=== PATIENT | male | born 1950 | race Caucasian/White ===

== ENCOUNTER → 2022-03-01 12:15 | Outpatient (CLI) | payer BC, SELFPAY ==
--- NOTE | 2022-03-01 12:21 | XR_ITS ---
FINAL REPORT CLINICAL HISTORY: SOB FINDINGS: Two views of the chest were obtained. The heart size and pulmonary vascularity are within normal limits. The mediastinum is normal. There is bibasilar atelectasis or scarring. There is no pneumothorax. There are moderate degenerative changes of the spine. IMPRESSION: Bibasilar atelectasis or scarring. Reviewed, Interpreted and Dictated by Mehran Hahn III, MD Transcribed by Shima Ibarra Authenticated by Mehran Hahn III, MD on 03/01/2022 01:07:26 PM [facility]
== END ==
PROVIDERS: PCP Family Medicine; Visit Provider Internal Medicine Pulmonary Disease
DX: R06.02 Shortness of breath (principal)
CPT/HCPCS: 71046

== ENCOUNTER → 2022-03-29 14:55 | Outpatient (CLI) | payer BC, SELFPAY | PROVIDERS: PCP Family Medicine; Visit Provider Internal Medicine Pulmonary Disease | DX: R06.09 Other forms of dyspnea (principal) | CPT/HCPCS: 94060; 94618; 94726; 94729; 94762 ==

== ENCOUNTER → 2022-06-05 15:19 | Outpatient (CLI) | payer BC, SELFPAY ==
--- NOTE | 2022-06-05 15:25 | CT_ITS ---
FINAL REPORT TECHNIQUE: Thin section axial images of the chest were obtained by computed tomography with inspiration and expiration supine and prone inspiration. High-resolution technique was performed. CLINICAL HISTORY: . SOA, this is a high resolution Chest x3, inspiration supine, expiration supine, inspiration prone FINDINGS: There is no evidence of mediastinal mass or adenopathy. No axillary mass is identified. There is mild predominantly peripheral fibrosis/scarring. There is no evidence of honeycombing. Note is made of mild emphysema. There is no evidence of bronchiectasis. There is a nodule in the medial right middle lobe measuring 9 mm. There is no significant air trapping on expiration. Limited images of the upper abdomen reveal a gallstone. IMPRESSION: Mild predominantly peripheral fibrosis/scarring. Mild emphysema. Right middle lobe nodule as above. Recommend 3 month follow-up CT or PET-CT. Reviewed, Interpreted and Dictated by Mehran Hahn III, MD Transcribed by Carey Del Castillo Authenticated and [facility]
== END ==
PROVIDERS: PCP Family Medicine; Visit Provider Internal Medicine Pulmonary Disease
DX: J84.89 Other specified interstitial pulmonary diseases (principal); R06.02 Shortness of breath
CPT/HCPCS: 71250

== ENCOUNTER → 2022-09-06 14:49 | Outpatient (CLI) | payer BC, SELFPAY ==
--- NOTE | 2022-09-06 14:59 | CT_ITS ---
FINAL REPORT TECHNIQUE: Axial CT images were performed from the lung apices through the upper abdomen. Coronal reformats were submitted. This study was performed with techniques to keep radiation doses as low as reasonably achievable (ALARA). Individualized dose reduction techniques using automated exposure control or adjustment of mA and/or kV according to the patient's size were employed. CLINICAL HISTORY: Pulmonary nodule, 3 month follow-up COMPARISON: 06/05/2022 FINDINGS: There is no axillary adenopathy. There is no hilar or mediastinal mass or adenopathy. Heart size is normal. There is no pericardial or pleural effusion. Limited images of the upper abdomen demonstrate a gallstone in the gallbladder. There is mild edema and mild scarring. The medial right middle lobe nodule is stable at 9 mm. There is no new mass or nodule. IMPRESSION: Stable right middle lobe nodule. Six-month follow-up chest CT is recommended. Reviewed, Interpreted and Dictated by Mehran Hahn III, MD Transcribed by Milagro Encarnacion Authenticated and [facility]
== END ==
PROVIDERS: PCP Family Medicine; Visit Provider Internal Medicine Pulmonary Disease
DX: R91.8 Other nonspecific abnormal finding of lung field (principal)
CPT/HCPCS: 71250

== ENCOUNTER → 2023-06-17 07:10 | Outpatient (CLI) | payer MEDICARE, SELFPAY ==
--- NOTE | 2023-06-17 07:20 | CT_ITS ---
FINAL REPORT TECHNIQUE: Thin section axial images were obtained from the lung apices through the upper abdomen without contrast. This study was performed with techniques to keep radiation doses as low as reasonably achievable (ALARA). Individualized dose reduction techniques using automated exposure control or adjustment of mA and/or kV according to the patient's size were employed. CLINICAL HISTORY: 9-month follow-up COMPARISON: 09/06/2022 FINDINGS: There is no mediastinal, hilar, or axillary lymphadenopathy. No pleural or pericardial effusion. Changes of emphysema are present. There is a new 6mm nodular opacity in the left upper lobe seen best in image #12, and another new 7 mm nodular opacity also in the left upper lobe seen best on axial image #20. In addition, there is a new mixed density nodule in the right upper lobe measuring 6 mm in size, seen best on image #18. There is also a new 5 mm right upper lobe nodule seen best on axial image #28. The pulmonary nodule in the medial right middle lobe measuring 9 mm seen on the prior CT of August 2022 is unchanged in appearance. Gallstones are present in the gallbladder. There is no acute osseous abnormality. IMPRESSION: Stable right middle lobe nodule since the prior CT of August 2022. There are new bilateral upper lobe subcentimeter nodules, that may be infectious or inflammatory, neoplasm felt to be less likely. Recommend continued follow-up CT examinations for further evaluation. Reviewed, Interpreted and Dictated by Joaquina Garner MD Transcribed by Michelle Kerr Authenticated and [facility]
== END ==
PROVIDERS: PCP Family Medicine; Visit Provider Internal Medicine Pulmonary Disease
DX: R91.8 Other nonspecific abnormal finding of lung field (principal); R06.09 Other forms of dyspnea
CPT/HCPCS: 71250; 94060; 94618; 94726; 94729

== ENCOUNTER 2024-01-02 15:10 | Outpatient (CLI) | payer MEDICARE, SELFPAY ==
--- NOTE | 2024-01-02 15:16 | CT_ITS ---
FINAL REPORT CLINICAL HISTORY: 6-month follow-up COMPARISON: 06/17/2023 FINDINGS: CT CHEST without contrast COMPARISON: 06/17/2023. TECHNIQUE: Axial CT without IV contrast administration. FINDINGS: No acute lung disease is present . No pleural or pericardial effusion is seen . Multiple nodules were noted on the prior CT examination. The largest nodule is a 9 mm nodule in the medial right middle lobe, best seen on image #142, which is stable. There were multiple small bilateral right upper lobe nodules noted on the previous exam which show interval improvement since the prior exam. A left upper lobe nodule seen in image #65 measures 6 x 4 mm on today's examination, was 7 x 5 mm on the prior exam. Other lesions are either similar in size or improved. Cholelithiasis is once again identified in the gallbladder. IMPRESSION: Since the prior exam of May 2023 there has been interval improvement in multiple right upper lobe nodules. The 9 mm nodule in the medial right middle lobe is stable in appearance, and a left upper lobe nodule is slightly smaller than noted on the prior exam. Mild bronchiectasis and mild changes of emphysema. Cholecystolithiasis. This study was performed using automated techniques to achieve radiation exposure as low as reasonably achievable Reviewed, Interpreted and Dictated by Anabell Choe MD Transcribed by Michelle Kerr Authenticated and [facility]
== END 2024-01-02 23:59 ==
LOC: RAD 15:12
PROVIDERS: PCP Family Medicine; Visit Provider Internal Medicine Pulmonary Disease
DX: R91.8 Other nonspecific abnormal finding of lung field (principal)
CPT/HCPCS: 71250

== ENCOUNTER 2025-01-21 07:42 | Outpatient (CLI) | payer MEDICARE, SELFPAY ==
[2025-01-21] MEDS: ALBUTEROL 0.083% 2.5 MG/3 ML NEB IH (08:53)
--- NOTE | 2025-01-21 08:53 | PC.NURSE ---
PFT and 6 Minute Walk Test completed with no incident. Albuterol 0.083% given via HHN, per written protocol, Pt tolerated tx well.
== END 2025-01-21 23:59 | disposition home or self-care (01) ==
LOC: RT 07:42
PROVIDERS: PCP Family Medicine; Visit Provider Internal Medicine Pulmonary Disease
DX: R06.09 Other forms of dyspnea (principal)
CPT/HCPCS: 94060; 94618; 94726; 94729; J7613

== ENCOUNTER 2025-06-09 06:48 | Outpatient (CLI) | payer MEDICARE, SELFPAY ==
--- OUTSIDE RECORDS SUMMARY | 2025-04-11 13:56 | XMS_ITS | Encounter Summary ---
Author Organization [facility] Address [address] [place] [address] Care Team Providers Care Purchasing/Receiving Name Role Phone Ritchie Lopez MD Primary Care Provider [phone] Laura Maher MD Unavailable [phone] Isaac Webb MD Unavailable Reason for Visit * Episode Based Medications (Routine) - Authorized Specialty Diagnoses / Procedures Referred By Contac t Referred To Contact Diagnoses Pancreatic adenocarcinoma (CMS/HCC) Procedures Gemcitabine Weekly x 3 / Nab-Paclitaxel Weekly x 3 Every 28 Days Carly Gaxiola MD [address] [address] Phone: tel: fax: Carly Gaxiola MD [address] [address] Phone: tel: fax: Referral ID Status Reason Start Date Expiration Date V isits Requested Visits Authorized [id number] Authorized 03/28/2025 09/27/2026 1 29 Encounter Details Date Type Department Care Team (Latest Contact Info) Description 04/11/2025 1:56 PM EDT - 04/11/2025 11:59 PM EDT Hospital Encounter [facility] [address] [place] [address] Pancreatic adenocarcinoma (CMS/HCC) (Primary Dx) Discharge Disposition: Home or Self Care Social History Tobacco Use Types Packs/Day Years Used Date Smoking Tobacco: Former Cigarettes 2 30 Q uit: 05/31/2003 Passive Smoke Exposure: Past Smokeless Tobacco: Never Comments:Quit in 2002 Alcohol Use Standard Drinks/Week Comments Never 0 (1 standard drink = 0.6 oz pur e alcohol) Humiliation, Afraid, Rape, and Kick questionnair e Answer Date Recorded Within the last year, have y ou been afraid of your partner or ex-partner? No 04/02/2024 Within the last year, have y ou been humiliated or emotionally abused in other ways by your partner or ex-partner? No 04/02/2024 Within the last year, have y ou been kicked, hit, slapped, or otherwise physically hurt by your partner or ex-partner? No 04/02/2024 Sexually Abused Not on file 04/02/2024 PHQ-2 Answer Date Recorded Patient Health Questionnaire-2 Score 0 04/04/2025 Hunger Vital Sign Answer Date Recorded Within the past 12 months, y ou worried that your food would run out before you got the money to buy more. Never true 04/02/20 24 Within the past 12 months, t he food you bought just didn't last and you didn't have money to get more. Never true 04/02/2024 PRAPARE - Transportation Answer Date Re corded In the past 12 months, has l ack of transportation kept you from medical appointments or from getting medications? No 01/2024 In the past 12 months, has l ack of transportation kept you from meetings, work, or from getting things needed for daily living? No 04/02/2024 Housing Stability Vital Sign Answer Jesus e Recorded In the last 12 months, was t here a time when you were not able to pay the mortgage or rent on time? No 04/02/2024 [address] of [address] Lived in the Last Year Not on f ile 04/02/2024 In the last 12 months, was t here a time when you did not have a steady place to sleep or slept in a fpc (including now)? No 04/02/2024 PHQ-9 Answer Date Recorded Patient Health Questionnaire-9 Score 0 10/19/2024 CAGE ASSESSMENT Answer Date Recorded Cage unable to access Not on file 04/02/2024 Cage max number of drinks Not on file 2023 Cage Beverages a week Not on file 04/02/2024 Have you ever felt you should CUT down on your d rinking? 0 04/02/2024 Have you been ANNOYED by people criticizing your drinking? 0 04/02/2024 Have you felt GUILTY about your drinking? 0 04/02/2024 Have you had a drink first t cristy in the morning ([employer]) to steady your nerves or to get rid of a hangover? 0 04/02/2024 CAGE Questionnaire Score 0 024 Utilities Answer Date Recorded In the past 12 months has th e electric, gas, oil, or water company threatened to shut off services in your home? No 04/02/2024 Sex and Gender Information Value Date Recorded Sex Assigned at Male 04/09/2024 12:36 PM EDT Legal Sex Male 11:30 AM EDT Gender Identity Male 04/09/2024 12:36 PM EDT Sexual Orientation Straight 04/09/2024 12 :36 PM EDT documented as of this encounter Last Filed Vital Signs Vital Sign Reading Time Taken Comments Blood Pressure 143/81 04/11/2025 1:58 PM EDT Pulse 82 04/11/2025 1:58 PM EDT Temperature 36.7 C (98.1 F) 04/11/2025 1:58 PM EDT Respiratory Rate 18 04/11/2025 1:58 PM EDT Oxygen Saturation 98% 04/11/2025 1:58 PM EDT Inhaled Oxygen Concentration - - Weight 79.1 kg (174 lb 6.1 oz) 04/11/2025 1:58 P M EDT Height 172.7 cm (5' 8 ) 04/11/2025 1:58 PM EDT Body Mass Index 26.51 04/11/2025 1:58 PM EDT documented in this encounter Medications at Time of Discharge B-D UF III MINI PEN NEEDLES 31G X 5 MM misc 04/08/2024 diclofenac (Voltaren) 1 % topical gelIndications:Pancr eatic adenocarcinoma (CMS/HCC) Place 1-2 g on the skin 2 (two) times a day. Apply as directed to both palms. 50 g 1 11/12/2024 diphenoxylate-atropi ne (Lomotil) 2.5-0.025 MG tablet Take 2 tablets by mouth 4 (four) times a day if needed for diarrhea. 30 tablet 2 05/04/2024 DULoxetine (Cymbalta) [address] capsule Take 1 capsule (30 mg) by mouth 1 (one) time each day. Do not crush or chew. 30 capsule 1 07/28/2024 gabapentin (Neurontin) 100 MG capsule Take 1 capsule (100 mg) by mouth 3 (three) times a day. 30 capsule 09/15/2024 insulin glargine (Lantus SoloStar) 100 UNIT/ML injection pen insulin glargine (Lantus SoloStar, Basaglar) 100 UNIT/ML injection pen Inject 20 Units under the skin every night. 15 mL 3 04/08/2024 lisinopril 10 MG tablet Take 1 tablet by mouth daily. 30 tablet 3 03/28/2025 pancrelipase, Pwj-Fphf-Xiex, (Creon) 96524-202296 units capsule delayed-release particles capsule Take 1 capsule by mouth 3 (three) times a day with meals. 180 capsule 05/05/2024 prochlorperazine (Compazine) 10 MG tabletIndications:Pa ncreatic adenocarcinoma (CMS/HCC) Take 1 tablet by mouth every 6 hours as needed for nausea or vomiting. 30 tablet 5 03/28/2025 tamsulosin (Flomax) 0.4 MG 24 hr capsule Take 1 capsule (0.4 mg) by mouth 1 (one) time each day with dinner. 30 capsule 11 05/19/2024 atorvastatin (Lipitor) 40 MG tablet Take 1 tablet (40 mg) by mouth 1 (one) time each day. 5 documented as of this encounter Plan of Treatment Upcoming Encounters Date Type Department Care Team (Late st Contact Info) Description 06/21/2025 2:00 PM EDT Office Visit [facility] [address] [place] [phone] Leatha Higgins, [employer] [address] [place] [address] 06/21/2025 3:30 PM EDT Appointment [facility] [address] [place] [address] 09/13/2025 2:40 PM EDT [facility] Visit [facility] [address] [place] [address] Douglas Schroeder, PA [address] [place] [address] documented as of this encounter Procedures Procedure Name Priority Date/Time Associated Diagnosis Comments CBC WITH AUTO DIFFERENTIAL Routine 04/11/2025 2:10 PM EDT Pancreatic adenocarcinoma (CMS/HCC) documented in this encounter Results * (ABNORMAL) CBC and differential (04/11/2025 2:10 PM EDT) WBC Count 2.65(L) 3.70 - 10.30 10*3/uL LAB HEMATOLOGY METHOD 04/11/2025 2:19 PM EDT [facility] RBC Count 4.64 4.60 - 6.10 10*6/uL LAB HEMATOLOGY METHOD 04/11/2025 2:19 PM EDT [facility] HGB 12.0(L) 13.7 - 17.5 g/dL LAB HEMATOLOGY METHOD 04/11/2025 2:19 PM EDT [facility] HCT 37.0(L) 40.0 - 51.0 % LAB HEMATOLOGY METHOD 04/11/2025 2:19 PM EDT [facility] Platelet Count 104(L) 155 - 369 10*3/uL LAB HEMATOLOGY METHOD 04/11/2025 2:19 PM EDT [facility] MCV 80 79 - 98 fL LAB HEMATOLOGY METHOD 04/11/2025 2:19 PM EDT [facility] MCH 25.9(L) 26.0 - 32.0 pg LAB HEMATOLOGY METHOD 04/11/2025 2:19 PM EDT [facility] MCHC 32.4 30.7 - 35.5 g/dL LAB HEMATOLOGY METHOD 04/11/2025 2:19 PM EDT [facility] RDW 13.2 11.5 - 14.5 % LAB HEMATOLOGY METHOD 04/11/2025 2:19 PM EDT [facility] MPV 9.1 8.8 - 12.5 fL LAB HEMATOLOGY METHOD 04/11/2025 2:19 PM EDT [facility] nRBC 0.0 <=0.0 per 100 WBCs LAB HEMATOLOGY METHOD 04/11/2025 2:19 PM EDT [facility] Differential Type Automated LAB HEMATOLOGY METHOD 04/11/2025 2:19 PM EDT [facility] Neutrophils % 58 % LAB HEMATOLOGY METHOD 04/11/2025 2:19 PM EDT [facility] Lymphocytes % 23 % LAB HEMATOLOGY METHOD 04/11/2025 2:19 PM EDT [facility] Monocytes % 13 % LAB HEMATOLOGY METHOD 04/11/2025 2:19 PM EDT [facility] Eosinophils % 5 % LAB HEMATOLOGY METHOD 04/11/2025 2:19 PM EDT [facility] Basophils % 0 % LAB HEMATOLOGY METHOD 04/11/2025 2:19 PM EDT [facility] Immature Granulocytes % 1 % LAB HEMATOLOGY METHOD 04/11/2025 2:19 PM EDT [facility] Neutrophils Absolute 1.53(L) 1.60 - 6.10 10*3/uL LAB HEMATOLOGY METHOD 04/11/2025 2:19 PM EDT [facility] Lymphocytes Absolute 0.61(L) 1.20 - 3.90 10*3/uL LAB HEMATOLOGY METHOD 04/11/2025 2:19 PM EDT [facility] Monocytes Absolute 0.35 0.30 - 0.90 10*3/uL LAB HEMATOLOGY METHOD 04/11/2025 2:19 PM EDT [facility] Eosinophils Absolute 0.13 0.00 - 0.50 10*3/uL LAB HEMATOLOGY METHOD 04/11/2025 2:19 PM EDT [facility] Basophils Absolute 0.01 0.00 - 0.10 10*3/uL LAB HEMATOLOGY METHOD 04/11/2025 2:19 PM EDT [facility] Immature Granulocytes Absolute 0.02 0.00 - 0.06 10*3/uL LAB HEMATOLOGY METHOD 04/11/2025 2:19 PM EDT [facility] Blood Blood sample taken from central line / Unknown (Port) Long-term Catheter / Unknown 04/11/2025 2:10 PM EDT 04/11/2025 2:13 PM EDT Narrative [facility] - 04/11/2025 2:19 PM EDT Therapeutic decision making should be based on absolute values, rather than percentages. Carly Harry MD LAB BLOOD ORDERABLES Fi nal Result [facility] [address] [place] [address] documented in this encounter Visit Diagnoses Diagnosis Pancreatic adenocarcinoma (CMS/HCC)- Primary Malignant neoplasm of pancreas, part unspecified documented in this encounter Administered Medications Inactive Administered Medications - up to 3 most recent administrations Medication Order MAR Action Action Date Dose Rate Site albumin-bound PACLitaxel (Abraxane) 200 mg IVPB 200 mg (rounded from 190 mg = 100 mg/m2 1.9 m2 Treatment Plan BSA from Recorded weight), Intravenous, at 120 mL/hr, Administer over 30 Minutes, Once, Hazardous Drug-Tier 1 Precautions. Dispose in BLACK Hazardous Waste Container. Chemotherapy: refer to [id number]. Protect from light., On Fri04/11/25 at 1515, For 1 dose, UndilutedIndications:Pancrea tic adenocarcinoma (CMS/HCC) New Bag 04/11/2025 3:55 PM EDT 200 mg 120 mL/hr dexamethasone (Decadron) tablet 12 mg 12 mg, Oral, Once, 1 dose, On Fri04/11/25 at 1445, RoutineIndications:Pancreati c adenocarcinoma (CMS/HCC) Given 04/11/2025 2:28 PM EDT 12 mg gemcitabine (Gemzar) 1,900 mg in sodium chloride 0.9 % 100 mL IVPB 1,900 mg (1,000 mg/m2 1.9 m2 Treatment Plan BSA from Recorded weight), Intravenous, at 359.9 mL/hr, Administer over 30 Minutes, Once, Hazardous Drug-Tier 1 Precautions. Dispose in BLACK Hazardous Waste Container. Chemotherapy: refer to [id number]., On Fri04/11/25 at 1545, For 1 dose, NS 100 mLIndications:Pancreatic adenocarcinoma (CMS/HCC) New Bag 04/11/2025 4:24 PM EDT 1,900 mg 359.9 mL/hr documented in this encounter Additional Health Concerns Assessment Noted Time PHQ-9 Depression Total Score: 0 10/19/20 24 10:40 AM EST A fall risk assessment has been complete d for the patient 04/11/2025 1:57 PM EDT A Body Mass Index follow-up plan has been documented for the patient 02/23/2025 1:24 PM EDT documented as of this encounter Care Teams Purchasing/Receiving Relationship Specialty Start Date End Date Ritchie Lopez MD [address] [place] [id number] PCP - General 03/30/24 Laura Maher MD [address] [facility] [address] [place] [address] Consulting Physician Medical Oncology 07/07/24 Isaac Webb MD [address] [facility] [address] [place] [address] Service Attending Radiation Oncology 10/26/24 documented as of this encounter
--- OUTSIDE RECORDS SUMMARY | 2025-04-26 13:00 | XMS_ITS | Encounter Summary ---
Author Organization [facility] Address [address] [place] [address] Care Team Providers Care Osteology Teacher Name Role Phone Ritchie Lopez MD Primary Care Provider [phone] Laura Maher MD Unavailable [phone] Isaac Webb MD Unavailable Encounter Details Date Type Department Care Team (Latest Contact Info) Description 04/26/2025 1:00 PM EDT Clinical Support [facility] Multidisciplinary Oncology Clinic [address] [place] [address] Pancreatic adenocarcinoma (CMS/HCC) Social History Tobacco Use Types Packs/Day Years [...] Date Recorded Patient Health Questionnaire-2 Score 0 04/26/2025 Hunger Vital Sign Answer Date Recorded Within [...] place to sleep or slept in a residential (including now)? 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 Question Answer Date of Assessment Author Little interest or pleasure in doing things Not at all 04/26/2025 1:57 PM EDT Amber Beltran Feeling down, depressed, or hopeless Not at all 04/26/2025 1:57 PM EDT Amber Beltran Patient Health Questionnaire -2 Score 0 04/26/2025 1:57 PM EDT Amber Beltran * Question Answer Date of Assessment Author Thoughts that you would be b minerva off or hurting yourself in some way Not at all 04/26/2025 1:57 PM EDT Amber Beltran documented as of this encounter Miscellaneous Notes * Clinician Note - Radha Grissom RN - 04/26/2025 1:00 PM EDT Port accessed and labs obtained. documented in this encounter Plan of Treatment Upcoming Encounters Date Type Department Care Team (Late st Contact Info) Description 06/21/2025 2:00 PM EDT Office Visit [facility] Multidisciplinary Oncology Clinic [address] [place] [address] Leatha Higgins, ARMOR RECONNAISSANCE SPECIALIST [address] [facility] [address] [place] [address] 06/21/2025 3:30 PM EDT Appointment [facility] Infusion Clinic [address] [place] [address] 09/13/2025 2:40 PM EDT [facility] [address] [place] [address] Douglas Schroeder, PA [address] [place] [address] documented as of this encounter Procedures Procedure Name Priority Date/Time Associated Diagnosis Comments CANCER ANTIGEN, GI (CA 19.9) Routine 04/26/2025 1:53 PM EDT Pancreatic adenocarcinoma (CMS/HCC) CBC WITH AUTO DIFFERENTIAL Routine 04/26/2025 1:53 PM EDT Pancreatic adenocarcinoma (CMS/HCC) COMPREHENSIVE METABOLIC PANEL, PLASMA Routine 04/26/2025 1:53 PM EDT Pancreatic adenocarcinoma (CMS/HCC) documented in this encounter Results * (ABNORMAL) CBC and differential (04/26/2025 1:53 PM EDT) WBC Count 6.52 3.70 - 10.30 10*3/uL LAB HEMATOLOGY METHOD 04/26/2025 2:07 PM EDT [facility] RBC Count 4.56(L) 4.60 - 6.10 10*6/uL LAB HEMATOLOGY METHOD 04/26/2025 2:07 PM EDT [facility] HGB 11.5(L) 13.7 - 17.5 g/dL LAB HEMATOLOGY METHOD 04/26/2025 2:07 PM EDT [facility] HCT 37.2(L) 40.0 - 51.0 % LAB HEMATOLOGY METHOD 04/26/2025 2:07 PM EDT [facility] Platelet Count 381(H) 155 - 369 10*3/uL LAB HEMATOLOGY METHOD 04/26/2025 2:07 PM EDT [facility] MCV 82 79 - 98 fL LAB HEMATOLOGY METHOD 04/26/2025 2:07 PM EDT [facility] MCH 25.2(L) 26.0 - 32.0 pg LAB HEMATOLOGY METHOD 04/26/2025 2:07 PM EDT [facility] MCHC 30.9 30.7 - 35.5 g/dL LAB HEMATOLOGY METHOD 04/26/2025 2:07 PM EDT [facility] RDW 14.7(H) 11.5 - 14.5 % LAB HEMATOLOGY METHOD 04/26/2025 2:07 PM EDT [facility] MPV 8.5(L) 8.8 - 12.5 fL LAB HEMATOLOGY METHOD 04/26/2025 2:07 PM EDT [facility] nRBC 0.0 <=0.0 per 100 WBCs LAB HEMATOLOGY METHOD 04/26/2025 2:07 PM EDT [facility] Differential Type Automated LAB HEMATOLOGY METHOD 04/26/2025 2:07 PM EDT [facility] Neutrophils % 56 % LAB HEMATOLOGY METHOD 04/26/2025 2:07 PM EDT [facility] Lymphocytes % 16 % LAB HEMATOLOGY METHOD 04/26/2025 2:07 PM EDT [facility] Monocytes % 18 % LAB HEMATOLOGY METHOD 04/26/2025 2:07 PM EDT [facility] Eosinophils % 5 % LAB HEMATOLOGY METHOD 04/26/2025 2:07 PM EDT [facility] Basophils % 2 % LAB HEMATOLOGY METHOD 04/26/2025 2:07 PM EDT [facility] Immature Granulocytes % 3 % LAB HEMATOLOGY METHOD 04/26/2025 2:07 PM EDT [facility] Neutrophils Absolute 3.70 1.60 - 6.10 10*3/uL LAB HEMATOLOGY METHOD 04/26/2025 2:07 PM EDT [facility] Lymphocytes Absolute 1.05(L) 1.20 - 3.90 10*3/uL LAB HEMATOLOGY METHOD 04/26/2025 2:07 PM EDT [facility] Monocytes Absolute 1.14(H) 0.30 - 0.90 10*3/uL LAB HEMATOLOGY METHOD 04/26/2025 2:07 PM EDT [facility] Eosinophils Absolute 0.33 0.00 - 0.50 10*3/uL LAB HEMATOLOGY METHOD 04/26/2025 2:07 PM EDT [facility] Basophils Absolute 0.10 0.00 - 0.10 10*3/uL LAB HEMATOLOGY METHOD 04/26/2025 2:07 PM EDT [facility] Immature Granulocytes Absolute 0.20(H) 0.00 - 0.06 10*3/uL LAB HEMATOLOGY METHOD 04/26/2025 2:07 PM EDT [facility] Blood Venous blood specimen / Unknown (Central Line) Existing Catheter / Unknown 04/26/2025 1:53 PM EDT 04/26/2025 2:05 PM EDT [facility] - 04/26/2025 2:07 PM EDT Therapeutic decision making should be based on absolute values, rather than percentages. Carly Harry MD LAB BLOOD ORDERABLES Fi nal Result [facility] [address] [place] [address] * (ABNORMAL) Comprehensive metabolic panel (04/26/2025 1:53 PM EDT) Glucose, Plasma 105(H) 74 - 99 mg/dL 04/26/2025 3:16 PM EDT [facility] BUN, Plasma 13 8 - 23 mg/dL 04/26/2025 3:16 PM EDT [facility] Creatinine, Plasma 0.68(L) 0.70 - 1.20 mg/dL 04/26/2025 3:16 PM EDT [facility] BUN/Creatinine Ratio 19 04/26/2025 3:16 PM EDT [facility] Sodium, Plasma 140 136 - 145 mmol/L 04/26/2025 3:16 PM EDT [facility] Potassium, Plasma 4.8 3.6 - 4.9 mmol/L 04/26/2025 3:16 PM EDT [facility] Chloride, Plasma 108(H) 97 - 107 mmol/L 04/26/2025 3:16 PM EDT [facility] CO2, Plasma 22 22 - 29 mmol/L 04/26/2025 3:16 PM EDT [facility] Anion Gap 10 6 - 16 mmol/L 04/26/2025 3:16 PM EDT [facility] Total Calcium, Plasma 8.6(L) 8.9 - 10.2 mg/dL 04/26/2025 3:16 PM EDT [facility] Total Protein 6.3 6.3 - 7.9 g/dL 04/26/2025 3:16 PM EDT [facility] Albumin, Plasma 3.3(L) 3.5 - 5.2 g/dL 04/26/2025 3:16 PM EDT [facility] AST, Plasma 33 10 - 50 U/L 04/26/2025 3:16 PM EDT [facility] ALT, Plasma 40 10 - 50 U/L 04/26/2025 3:16 PM EDT [facility] Alkaline Phosphatase, Plasma 132(H) 40 - 115 U/L 04/26/2025 3:16 PM EDT [facility] Total Bilirubin, Plasma 0.3 0.2 - 1.1 mg/dL 04/26/2025 3:16 PM EDT [facility] eGFRcr 98.1 mL/min/1.7 3m*2 04/26/2025 3:16 PM EDT [facility] Comment:Reported eGFRcr in m L/min/1.73m2 is based the CKD-EPI 2020 equation that does not use a race coefficient. Blood Venous blood specimen / Unknown (Central Line) Existing Catheter / Unknown 04/26/2025 1:53 PM EDT 04/26/2025 2:38 PM EDT Carly Harry MD LAB BLOOD ORDERABLES Fi nal Result Performing Organization Address [facility] Co de Phone Number [facility] [address] [place] [address] * (ABNORMAL) Cancer antigen 19-9 (04/26/2025 1:53 PM EDT) CA 19.9 230(H) <36 U/mL 04/26/2025 3:19 PM EDT [facility] Blood Venous blood specimen / Unknown (Central Line) Existing Catheter / Unknown 04/26/2025 1:53 PM EDT 04/26/2025 2:38 PM EDT Narrative [facility] - 04/26/2025 3:19 PM EDT Performed by Kiera electrochemiluminescent immunoassay. Results obtained with different test methods or kits cannot be used interchangeably. Carly Harry MD LAB BLOOD ORDERABLES Fi nal Result Performing Organization Address [facility]/ZIP Co de Phone Number [facility] [address] [place] [address] documented in this encounter Visit Diagnoses Diagnosis Pancreatic adenocarcinoma (CMS/HCC) Malignant neoplasm of pancreas, part unspecified documented in this encounter Additional Health Concerns Assessment Noted Time PHQ-9 Depression Total Score: 0 10/19/20 24 10:40 AM EST A fall risk assessment has been complete d for the patient 04/26/2025 3:29 PM EDT A Body Mass Index follow-up plan has been documented for the patient 02/23/2025 1:24 PM EDT documented as of this encounter Care Teams Osteology Teacher Relationship Specialty Start Date End Date Ritchie Lopez MD [address] [place], [place] [id number] PCP - General 03/30/24 Laura Maher MD [address] [facility] [address] [place] [address] Consulting Physician Medical Oncology 07/07/24 Isaac Webb MD [address] [facility] [id number] [place] [phone] Service Attending Radiation Oncology 10/26/24 documented as of this encounter
--- OUTSIDE RECORDS SUMMARY | 2025-04-26 13:40 | XMS_ITS | Encounter Summary ---
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 Name Role Phone Ritchie Lopez MD Primary Care Provider [phone] Laura Maher MD Unavailable [phone] Isaac Webb MD Unavailable Reason for Referral * Imaging (Routine) - Closed Specialty Diagnoses / Procedures Referred By Contac t Referred To Contact Radiology Diagnoses Pancreatic adenocarcinoma (CMS/HCC) Procedures PET/CT FDG Skull Base To Mid Thigh Carly Gaxiola MD [address] [facility] [address] [place] [facility] [address] [place] [address] Phone: tel: fax: Referral ID Status Reason Start Date Expiration Date Visits Re quested Visits Authorized [id number] Closed 04/26/2025 10/26/2026 2 2 Reason for Visit * Reason Comments Follow-up Encounter Details Date Type Department Care Team (Late st Contact Info) Description 04/26/2025 1:40 PM EDT Office Visit [facility] [address] [place] [address] Carly Gaxiola MD [address] [place] [facility] [address] [place] [address] Pancreatic adenocarcinoma (CMS/HCC) (Primary Dx); Chemotherapy-induced neuropathy (CMS/HCC); Encounter for antineoplastic chemotherapy; Neoplastic (malignant) related fatigue; Chemotherapy-induced fatigue; Chemotherapy-induced nausea Social History Tobacco Use Types Packs/Day Years [...] place to sleep or slept in a care home (including now)? 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 0 04/02/2024 CAGE Questionnaire Score 0 024 Utilities Answer Date Recorded In the past 12 months has th e [employer], gas, oil, or water [employer] threatened to shut off services in your home? No 04/02/2024 Sex and Gender Information Value Date Recorded Sex Assigned at Male 04/09/2024 12:36 PM EDT Legal Sex Male 11:30 AM EDT Gender Identity Male 04/09/2024 12:36 PM EDT Sexual Orientation Straight 04/09/2024 12 :36 PM EDT documented as of this encounter Last Filed Vital Signs Vital Sign Reading Time Taken Comments Blood Pressure 178/82 04/26/2025 1:54 PM EDT Pulse 60 04/26/2025 1:54 PM EDT Temperature 36.7 C (98.1 F) 04/26/2025 1:54 PM EDT Respiratory Rate - - Oxygen Saturation 98% 04/26/2025 1:54 PM EDT Inhaled Oxygen Concentration - - Weight 79.6 kg (175 lb 7.8 oz) 04/26/2025 1:54 P M EDT Height 172.7 cm (5' 8 ) 04/26/2025 1:54 PM EDT Body Mass Index 26.68 04/26/2025 1:54 PM EDT documented in this encounter Functional Status * Over the [...] as of this encounter Miscellaneous Notes * Progress Notes - Priyanka Castillo MD - 04/26/2025 1:40 PM EDT Patient Information Patient Name: Winston Joya Date of : 1950 REFERRING PHYSICIAN: No referring provider defined for this encounter. Encounter Date:04/26/25 Patient Care Team: Ritchei Lopez MD as PCP - General Laura Maher MD as Consulting Physician (Medical Oncology) Isaac Webb MD as Service Attending (Radiation Oncology) Chief Complaint: tox check Treatment Diagnosis: Cancer Staging Pancreatic adenocarcinoma (CMS/HCC) Staging form: Pancreas, Exocrine AJCC 8th Edition - Clinical: Stage IIB (cT2, cN1, cM0) - Signed by Laura Maher MD on 04/16/2024 Current Treatment Regimen: Gemcitabine Weekly x 3 / Nab-Paclitaxel Weekly x 3 Q28D Interval history Patient returns to clinic with daughter after last follow-up. Followed prior with outside surgical oncology follow-up at [facility]. Was on Concurrent chemoRT with xeloda prior-- no GI upset reported. New symptoms following Bowie/Abraxane re-start. Overall tolerated Bowie/Abraxane C1 re-start fairly with mild toxicity. Reports new episodes of cold sensitivity that woke him up around D3-4 post infusions (D1, D8, D15). He reports completing D8 without any other issues and feeling otherwise at baseline. Following D15, he reports recurrent episodes of watery diarrhea around D18-19 (3-4x/day) that lasted 4 days withresolution ~D21/ after continued best supportive care including PRN antidiarrheals OTC. poor po intake during those days but subsequent return to normal PO liquids/regular diet. He also associates increased fatigue around same timeframe with suboptimal return to pre-chemo baseline but not bothersome . His Weight is stable. Appetite is better. Still reports persistent neuropathy with increased tingling over calfs which is new for him this week ISO prior b/l feet only with slight return tingling over forehead (no hands). His CIPN is also not bothersome ; he was offered different strategies modalities as mgmt-- he remains less interested at present. No significant recurrence nausea, vomiting, fevers or chills. No constipation. History of Present Illness: Winston Joya is a 74 y.o. male referred to me to establish care for the treatment of pancreatic adenocarcinoma. Oncology History Overview Note 04/01- 04/08/24: Transferred to for abdominal pain and jaundice T bili elevated to 13.1 04/02/2024: ERCP with stent placed in common hepatic duct and bile duct. EUS Hypoechoic and irregular mass measuring 25 mm x 32 mm with poorly defined and irregular margins was visualized in the headof the pancreas; 3 fine needle aspiration passes were taken. FNA pathology positive for adenocarcinoma 04/02/24: CT CAP w contrast: Right lung pulmonary nodules measuring up to 10 mm in the right middle lobe, indeterminate. Ill-defined hypoenhancing mass in the pancreatic head/uncinate process with mildprominence of the pancreatic duct and mild surrounding peripancreatic stranding. There is abutment of the celiac axis and encasement of the SMA. Focal narrowing of the superior mesenteric vein and portal vein at the confluence. The distal portal veins remain patent. The splenic vein is patent. He was evaluated by Surgical Oncology on admission-- felt to be unresectable with the SMV narrowingand SMA encasement 04/07/24: Port placed Gemcitabine /Abraxane-- dose reduced 20% for diarrhea/hyperbilirubinemia and tolerability Cycle 1: 04/21, 04/29/24, 05/05/24 Cycle 2: 05/19/24, 05/26/24, 06/02/24 Cycle 3: 06/16/24, 06/23/24, 06/30/24 07/12/24: CT CAP w contrast: Decreasing size of mass arising within the uncinate process of the pancreas. The mass continues to surround approximately 180 degrees of the posterior aspect of the SMA. Evaluated by surg onc - recommended 3 more months of chemo Cycle 4 :07/14/24, 07/21/24, 07/28/24 Cycle 5: 08/11, 08/18, 08/25/24 Cycle 6: 09/15, elected to take a treatment break and was evaluated by Surgical Oncology for surgery however he deferred surgery and elected to proceed with concurrent chemoradiation finished cycle 6day 8 and day 15 on 10/29 and 11/06 respectively 10/05/24: CT CAP w contrast: Continued minimal few millimeter decrease in size of the primary mass arising within the uncinate process of the pancreas. Stable to minimal decrease in abutment of the SMA.Stable portacaval lymph node. No new adenopathy. CA 19.9 38.5 He was evaluated by Surgical Oncology and was felt to be a candidate for surgery however he deferred. 12/03/23: Began concurrent chemoRT with xeloda 03/07/2025-followed up with Dr. Rollins at [facility]. Recommended continuing gem Abraxane. Pancreatic adenocarcinoma (CMS/HCC) 04/16/2024 Initial Diagnosis Pancreatic adenocarcinoma (CMS/HCC) 04/16/2024 Cancer Staged Staging form: Pancreas, Exocrine AJCC 8th Edition, Clinical: Stage IIB (cT2, cN1, cM0) - Signed by Laura Maher MD on 04/16/2024 04/21/2024 - 09/15/2024 Chemotherapy gemcitabine (Gemzar) 1,877.2 mg in sodium chloride 0.9 % 100 mL chemo IVPB, 1,000 mg/m2 = 1,877.2 mg, Intravenous, Once, 6 of 6 cycles Dose modification: 800 mg/m2 (original dose 1,000 mg/m2, Cycle 1) Administration: 1,877.2 mg (04/21/2024), 1,877.2 mg (04/29/2024), 1,504.8 mg (05/05/2024), 1,504.8 mg (05/19/2024), 1,504.8 mg (05/26/2024), 1,504.8 mg (06/02/2024), 1,504.8 mg (06/16/2024), 1,504.8 mg (06/23/2024), 1,504.8 mg (06/30/2024), 1,504.8 mg (07/14/2024), 1,504.8 mg (07/21/2024), 1,504.8 mg (07/28/2024), 1,504.8 mg (08/11/2024), 1,504.8 mg (08/18/2024), 1,504.8 mg (08/25/2024), 1,504.8 mg (09/15/2024) albumin-bound PACLitaxel (Abraxane) 235 mg chemo IVPB, 125 mg/m2 = 235 mg, Intravenous, Once, 6 of 6 cycles Dose modification: 100 mg/m2 (original dose 125 mg/m2, Cycle 1) Administration: 235 mg (04/21/2024), 235 mg (04/29/2024), 190 mg (05/05/2024), 190 mg (05/19/2024), 190 mg (05/26/2024), 190 mg (06/02/2024), 190 mg (06/16/2024), 190 mg (06/23/2024), 190 mg (06/30/2024), 190 mg (07/14/2024), 190 mg (07/21/2024), 190 mg (07/28/2024), 190 mg (08/11/2024), 190 mg (08/18/2024), 190 mg (08/25/2024), 190 mg (09/15/2024) 04/21/2024 - 11/06/2024 Chemotherapy gemcitabine (Gemzar) 1,862 mg in sodium chloride 0.9 % 100 mL chemo IVPB, 1,000 mg/m2 = 1,862 mg, Intravenous, Once, 6 of 6 cycles Dose modification: 800 mg/m2 (original dose 1,000 mg/m2, Cycle 6) Administration: 1,489.6 mg (10/29/2024), 1,489.6 mg (11/06/2024) albumin-bound PACLitaxel (Abraxane) 235 mg chemo IVPB, 125 mg/m2 = 235 mg, Intravenous, Once, 6 of 6 cycles Dose modification: 100 mg/m2 (original dose 125 mg/m2, Cycle 6) Administration: 185 mg (10/29/2024), 185 mg (11/06/2024) 11/10/2024 - 11/10/2024 Chemotherapy [No matching medication found in this treatment plan] 11/25/2024 - 03/22/2025 Radiation Therapy The patient saw No care steam engineer to display for radiation treatment. This is the current list ofradiation treatment: VMAT: Bilateral Pancreas (Resolved) Treatment Period Fraction Dose Fractions Total Dose Course IMRT QA 11/19/2024-11/19/2024 (days elapsed: 0) Plans Planned Pancreas 11/19/2024-11/19/2024 220 cGy 0 / 220 cGy Reference Points Delivered Verification 11/19/2024-11/19/2024 -- -- 0 cGy Course C1 11/25/2024-01/03/2025 (days elapsed: 39) Plans Planned Pancreas 11/25/2024-01/03/2025 220 cGy 25 5,500 cGy Reference Points Delivered Pancreas 11/25/2024-01/03/2025 -- -- 5,500 cGy 03/28/2025 - Chemotherapy gemcitabine (Gemzar) 1,900 mg in sodium chloride 0.9 % 100 mL IVPB, 1,000 mg/m2 = 1,900 mg, Intravenous, Once, 1 of 6 cycles Administration: 1,900 mg (03/28/2025) albumin-bound PACLitaxel (Abraxane) 200 mg IVPB, 100 mg/m2 = 200 mg (80 % of original dose 125 mg/m2), Intravenous, Once, 1 of 6 cycles Dose modification: 100 mg/m2 (original dose 125 mg/m2, Cycle 1) Administration: 200 mg (03/28/2025) Past Medical, Surgical, Family and Social History-- reviewed Past Medical History: Diagnosis Date Diabetes mellitus (CMS/HCC) Hyperlipidemia Hypertension Pancreatic cancer (CMS/HCC) No surgical history in the past No family history of malignancies. Social History Tobacco Use Smoking status: Former Current packs/day: 0.00 Average packs/day: 2.0 packs/day for 30.0 years (60.0 ttl pk-yrs) Types: Cigarettes Quit date: 05/31/2003 Years since quittin.9 Passive exposure: Past Smokeless tobacco: Never Tobacco comments: Quit in 2002 Vaping Use Vaping status: Never Used Substance Use Topics Alcohol use: Never Drug use: Never Allergies and Adverse Drug Reactions Trazodone Medications Current Outpatient Medications: insulin glargine (Lantus SoloStar, Basaglar) 100 UNIT/ML injection pen, Inject 20 Units under the skin every night., Disp: 15 mL, Rfl: 3 lisinopril 10 MG tablet, Take 1 tablet by mouth daily., Disp: 30 tablet, Rfl: 3 tamsulosin (Flomax) 0.4 MG 24 hr capsule, Take 1 capsule (0.4 mg) by mouth 1 (one) time each day with dinner., Disp: 30 capsule, Rfl: 11 atorvastatin (Lipitor) 40 MG tablet, Take 1 tablet (40 mg) by mouth 1 (one) time each day. (Patientnot taking: Reported on 01/31/2025), Disp: , Rfl: B-D UF III MINI PEN NEEDLES 31G X 5 MM [facility], , Disp: , Rfl: diclofenac (Voltaren) 1 % topical gel, Place 1-2 g on the skin 2 (two) times a day. Apply as directed to both palms. (Patient not taking: Reported on 12/07/2024), Disp: 50 g, Rfl: 1 diphenoxylate-atropine (Lomotil) 2.5-0.025 MG tablet, Take 2 tablets by mouth 4 (four) times a day if needed for diarrhea. (Patient not taking: Reported on 01/31/2025), Disp: 30 tablet, Rfl: 2 DULoxetine (Cymbalta) [address] capsule, Take 1 capsule (30 mg) by mouth 1 (one) time each day. Do not crush or chew. (Patient not taking: Reported on 01/31/2025), Disp: 30 capsule, Rfl: 1 gabapentin (Neurontin) 100 MG capsule, Take 1 capsule (100 mg) by mouth 3 (three) times a day. (Patient not taking: Reported on 01/31/2025), Disp: 30 capsule, Rfl: 0 insulin glargine (Lantus SoloStar) 100 UNIT/ML injection pen, , Disp: , Rfl: pancrelipase, [id number], (Creon) [id number] units capsule delayed-release particles capsule, Take 1 capsule by mouth 3 (three) times a day with meals. (Patient not taking: Reported on 04/26/2025), Disp: 180 capsule, Rfl: 0 prochlorperazine (Compazine) 10 MG tablet, Take 1 tablet by mouth every 6 hours as needed for nausea or vomiting. (Patient not taking: Reported on 04/26/2025), Disp: 30 tablet, Rfl: 5 No current facility-administered medications for this visit. Review of Systems: A 14 point ROS is obtained which is negative except as per HPI Objective Visit Vitals BP (!) 178/82 Pulse 60 Temp 36.7 ??C (98.1 ??F) Ht 1.727 m (5' 8 ) Wt 79.6 kg (175 lb 7.8 oz) SpO2 98% BMI 26.68 kg/m?? Smoking Status Former BSA 1.95 m?? Performance Status ECOG 1 GENERAL: Appears comfortable SKIN: warm, dry, and pink. No rashes or lesions. EYES: conjunctiva clear, no pallor or icterus HEAD/NECK: neck supple, RESPIRATORY: non-labored respirations CARDIOVASCULAR: no peripheral edema GASTROINTESTINAL: soft, non-tender, non-distended, MUSCULOSKELETAL: No significant muscle wasting NEUROLOGICAL: alert and oriented x3, no focal deficits PSYCHOLOGICAL: Normal mood. LABORATORIES AND STUDIES: reviewed by me personally Labs in last 18 hours CBC WBC 6.52 Hb 11.5 (L) Plt 381 (H) Hct 37.2 (L) ANC 3.70 INR ??, PTT ??, Anti-Xa ?? BMP Na 140 Cl 108 (H) BUN 13 Glu 105 (H) K 4.8 Co2 22 Cr 0.68 (L) Ca 8.6 (L) iCa ?? Mg ??, Phos ?? Lactate ?? LFT AST 33 AlkPhos 132 (H) T Prot 6.3 ALK 40 Bili 0.3 Alb ?? D.Bili ?? Ca 8.6 (L) iCa ?? Mg ?? Phos ?? Lactate ?? CEA, Serum Date Value Ref Range Status 04/03/2024 38.1 (H) <4.0 ng/mL Final Imaging: None today Assessment/Plan Cancer management : Locally advanced pancreatic adenocarcinoma Obstructive jaundice related to neoplasm -- improving post stent placement Winston Joya is a 74 y.o. male with Cancer Staging Pancreatic adenocarcinoma (CMS/HCC), Staging form: Pancreas, Exocrine AJCC 8th Edition, Clinical: Stage IIB This represents a life threatening illness for which urgent cancer treatment is indicated. Initial imaging reviewed with around 3 cm pancreatic head mass biopsy-proven adenocarcinoma. Pancreatic mass is celiac axis with encasement of SMA. He was initially evaluated by Surgical Oncology andwas unresectable - I have discussed neoadjuvant chemotherapy with gemcitabine and Abraxane .I have discussed need for at least 6 months of chemotherapy in total. - Repeat imaging on 07/14 prior to C4 showing decreased size of mass ( 4.7 x2 cm to 3.2 x1.5 cm) butstill surrounding posterior aspect of SMA - Cycle 6 gemcitabine and Abraxane: 09/15, elected to take a treatment break and was evaluated by Surgical Oncology however he deferred surgery and elected to proceed with concurrent chemoradiation finished cycle 6 day 8 and day 15 on 10/29/24 and 11/06/24 respectively -- he was a surgical candidate however he deferred Whipple. As such proceeded with concurrent chemoradiation with Xeloda. Completed Xeloda 1500 mg twice daily on the days of radiation Friday to Friday as of 01/03/25 -- CT CAP w contrast from 02/22/25 post completion of chemoRT with Interval decreased size of the pancreatic uncinate mass, with decrease abutment of the superior mesenteric artery and portosplenic confluence. Decreased conspicuity of the portacaval lymph node. No enlarging abdominopelvic lymph nodes. However noted CA 19.9 uptrend as below, so obtained PET CT scan that showed FDG avid focus along the medial aspect of the uncinate process in similar location to noted ill-defined pancreatic mass on most recent CT abdomen/pelvis which may represent residual disease. Non-FDG avid pulmonary nodules --discussed the PET-CT scan results with patient and her daughter in . Given concern for residual disease per PET-CT scan and uptrending CA 19.9 I have recommended to resume chemotherapy withgemcitabine Abraxane as he had good response in the past . Patient met with Surgical Oncology at [facility] to discuss nanoknife ablation. He recommended continuing gem Abraxane - CA 199 --> 8249--> 218 >>38.5 on 10/05/24--> uptrended to 91.2 on 02/22/25 --> still going up (230 on 04/26/25) but suspect less likely biochemical PD ISO recent chemo combination re-start. --Ambry genetic testing sent 05/26/24 given new diagnosis of pancreatic adenocarcinoma. No mutationsdetected. --Requested caris - QNS ; Will need liquid biopsy--> ?sent? PLAN 04/26/25 --Labs reviewed and appropriate today-- OK to proceed after today's visit with D1 of Bowie/Abraxane with dose reduced Abraxane to 80%. Due to mild toxicity/QOL, we will omit Day 8 (diarrhea, neuropathy) starting with next dose after visit. --Will continue current combined chemotherapy regimen with close CA 199 trend monitoring with plansto continue future cycles on D1 and D15 only () at same dose reduced Abraxane ( 20% ) unless futureindication to stop/further DR. --A repeat PETCT (efficacy) is ordered today (not scheduled yet) as favored imaging modality to better assess interval treatment response to Bowie/Abraxane following re-start at this time. --He currently has scheduled next CT CAP in early May. If no issues at next RTC with [employer] SERVICE TECHNICIAN, can plan his next RTC with MD following PETCT to discuss results/guide next steps in POC. --RTC on 05/04/25 with [employer] SERVICE TECHNICIAN for tox check with labs/CT scans (scheduled on 05/02/25). Grade 1 CIPN - slightly increased (still G1 today) Cancer/chemotherapy related fatigue- stable - symptoms initially overall improved but now had interval worsening (mild) over BLE (up to calf's) - not interested in continued SNRI (duloxetine); Dc'd 08/11/24 (B12/TSH WNL) - not interested in starting new PO pharmacotherapy (gabapentin, pregabalin) at this time; - discussed consideration to PT for debility/fatigue, accupunture to help with pain; He declined acupuncture again today Weight loss- Improved Lack of appetite - improved - encouraged small frequent meals - glucose controlled boost rx'd for meds to beds prior - currently drinking one boost in the mornings - housekeeping attendant consulted - weight stable, continue trending during visits Diarrhea: resolved - recurrent/transient episodes (G 0/1 -> now G0 todsay) Diarrhea improved. Unclear if chemo related as patient describes random episodes even on off weeks. - C Diff neg on 05/11/24 - Has GI referral on 06/22/24- also has biliary stent place March 2024. LFT stable on lastest/current labs. - cont to alternate imodium/lomotil prn, and cont IVF when diarrhea severe Lung nodules-stable; asymptomatic He has right-sided lung nodules all appear to be subcentimeter. However patient reports having lungnodules since 2020 especially after his diagnosis of COVID. CT chest form today with New indeterminate 7 mm left basal nodule.-- tiny to be biopsied. Stable solid right middle lobe lesion. No enlarged lymph nodes. --Stable on latest repeat imaging. Interval course since then is clinically asymptomatic. --Will cont to monitor on CT chest. Diabetes mellitus Currently on insulin Lantus. Usually takes 20 units, but occasionally titrates based on dexcom BPH Urinary hesitancy, nocturia Enlarged prostate noted on 04/02/24 scan (PSA 5.31 on 04/03/24). - PSA on 07/04/24 was 4.88; cont Flomax [started 05/19/24] --Deferred to PCP for mgmt. The selection, dosing and administration of anti-cancer agents and the management of associated toxicities requires complex medical decision making. Modifications of drug dose and schedule as well asthe initiation of supportive care interventions are often necessary because of expected toxicities.This varies individually based on patient tolerability, prior treatments and comorbidities. The optimal delivery of anticancer agents requires a healthcare delivery team experienced in the use of anticancer agents and the management of associated toxicities in patients with cancer. Time was spent in coordination of appointments, treatment start dates, scans, infusions, and discussing prescriptiondrug needs including anti-emetic and pain medications, and the possibility of any drug-drug interactions between both prescribed medications, OTC agents and herbal/supplementary medications. Instructions were given regarding actions should any new symptoms develop and persist including, but not limited to, fever (temp > 100.5 deg F and sustained for at least 1 hour without the use of antipyretics such as acetaminophen, ASA or NSAIDS), chills, bleeding, nauea, emesis, headache, change in mental status, loss of consciousness, syncope, dehydration or sudden increase in pain. Patient discussed with attending physician Dr Anabell Harry MD who agreed with formulation of the plan as described above. Priyanka Goss MD, MSc Hematology and Oncology Fellow PGY-6 [facility] [address] [place] [phone] Pager: [phone] Electronically Signed by: Priyanka Goss MD - 04/26/2025 - 2:53 PM Cosigned by Carly Gaxiola MD at 04/28/2025 9:07 PM EDT Associated attestation - Carly Gaxiola MD - 04/28/2025 9:07 PM EDT I saw and evaluated the patient with the resident/fellow. I discussed the case with the resident/fellow and agree with the findings and plan as documented. * Progress Notes - Pamela Neil, PharmD - 04/26/2025 1:40 PM EDT Pharmacy Hematology/Oncology Treatment Note Winston Joya is a 74 y.o. male with mPDAC. Cancer Staging Pancreatic adenocarcinoma (CMS/HCC) Staging form: Pancreas, Exocrine AJCC 8th Edition - Clinical: Stage IIB (cT2, cN1, cM0) - Signed by Laura Maher MD on 04/16/2024 Study Patient: No Treatment Plan reviewed for Gemcitabine/Abraxane. [x] Follow-Up Clinical Review for Cycle 2 Patient History: 05/05/24: Mr. Joya presented to the ED with a fever. He was not neutropenic and infectious work upwas unremarkable. He reports diarrhea that improved somewhat with Lomotil. Bilirubin has slightly increased. Will dose reduce gemcitabine and Abraxane 20% for diarrhea/hyperbilirubinemia. 07/14/24: Scans demonstrate treatment response. He will see surgical oncology on 07/27/24. 07/28/24: Mr. Joya reports increased neuropathy. Will add duloxetine 30 mg once daily. Surgical oncology would like 3 additional months of chemotherapy (6 months total). 09/15/24: Mr. Joya is doing okay. He reports leg pain that required him to go to the ED on 08/30,he states that if this occurs again he would not want to continue with chemotherapy. Plan is to follow up with Dr. Maher next week he will let her know how he is doing prior to day 8. 10/22/24: Mr. Joya would like to hold off on Whipple at this time and complete his final 2 dosesof chemotherapy, followed by chemoradiation. Labs to be re-evaluated by pharmacy satellite prior totreatment on 10/29/24. 03/28/25: Mr. Joya completed 6 months of Gemcitabine/Abraxane and chemoradiation. Per surgical oncology at [facility], recommend to resume chemotherapy. Abraxane dose reduced 20% for tolerability/neuropathy. 04/26/25: Mr. Joya is experiencing worsening neuropathy and does not wish to use Cymbalta or Gabapentin. He was also offered acupuncture. Dr. Harry will continue current dose but drop day 8. Due topersonal travel, will skip D15 with C2 and then proceed with D1, D15 dosing with cycle 3 and beyond. Dosing Wt: 76.5 kg Dosing Ht: 172.7 cm DosingBSA: 1.9 m2 Recent Labs: Lab Results Component Value Date WBC 6.52 04/26/2025 NEUTROABS 3.70 04/26/2025 HGB 11.5 (L) 04/26/2025 PLT 381 (H) 04/26/2025 Lab Results Component Value Date GLUCOSE 105 (H) 04/26/2025 NA 140 04/26/2025 CL 108 (H) 04/26/2025 K 4.8 04/26/2025 MG 2.0 08/30/2024 BUN 13 04/26/2025 CREATININE 0.68 (L) 04/26/2025 Lab Results Component Value Date AST 33 04/26/2025 ALT 40 04/26/2025 ALKPHOS 132 (H) 04/26/2025 BILITOT 0.3 04/26/2025 Visit Vitals BP (!) 178/82 Pulse 60 Temp 36.7 ??C (98.1 ??F) Other Relevant Monitoring: Treatment/Therapy Plan: Gemcitabine 1000 mg/m2 (1900 mg) IV D1, D15 Abraxane 100 mg/m2 (200 mg) IV D1, D15 Every 28 days [x] Abraxane dose reduced 20% for predicted tolerability; D8 dropped with C2 d/t neuropathy/tolerability Current Treatment Plan History: Bowie/Abraxane Cycle 1: 03/28/25, 04/04/25, 04/11/25 Cycle 2: 04/26, 05/03/25 Prior Treatment History: Bowie/Abraxane Cycle 1: 04/21, 04/29/24, 05/05/24 Cycle 2: 05/19/24, 05/26/24, 06/02/24 Cycle 3: 06/16/24, 06/23/24, 06/30/24 Cycle 4: 07/14/24, 07/21/24, 07/28/24 Cycle 5: 08/11, 08/18, 08/25/24 Cycle 6: 09/15, 10/29, 11/06/24 Capecitabine + XRT (12/2024 - 01/2025) Plan: Patient will return to clinic in 1 week with scans. Will follow-up at that time. Pharmacist Attestation: Pamela Neil, AlmazD, [facility] Clinical Oncology Pharmacist documented in this encounter Plan of Treatment Upcoming Encounters Date Type Department Care Team (Late st Contact Info) Description 06/21/2025 2:00 PM EDT Office Visit [facility] [address] [place] [address] Leatha Higgins, CAN TESTER [address] [facility] [address] [place] [address] 06/21/2025 3:30 PM EDT Appointment [facility] [address] [place] [address] 09/13/2025 2:40 PM EDT Office Visit [facility] Medicine Specialties [address] [place] [address] Douglas Schroeder PA [address] [place] [address] Scheduled Orders Name Type Priority Associated Diagnoses Orde r Schedule CBC and differential Lab Routine Pancreatic adenocarcinoma (CMS/HCC) Expected: 06/07/2025, Expires: 06/07/2026 documented as of this encounter Results * (ABNORMAL) Comprehensive metabolic panel (05/24/2025 12:01 PM EDT) Glucose, Plasma 105(H) 74 - 99 mg/dL 05/24/2025 12:46 PM EDT [facility] BUN, Plasma 14 8 - 23 mg/dL 05/24/2025 12:46 PM EDT [facility] Creatinine, Plasma 0.66(L) 0.70 - 1.20 mg/dL 05/24/2025 12:46 PM EDT [facility] BUN/Creatinine Ratio 21 05/24/2025 12:46 PM EDT [facility] Sodium, Plasma 141 136 - 145 mmol/L 05/24/2025 12:46 PM EDT [facility] Potassium, Plasma 4.9 3.6 - 4.9 mmol/L 05/24/2025 12:46 PM EDT [facility] Chloride, Plasma 108(H) 97 - 107 mmol/L 05/24/2025 12:46 PM EDT [facility] CO2, Plasma 23 22 - 29 mmol/L 05/24/2025 12:46 PM EDT [facility] Anion Gap 10 6 - 16 mmol/L 05/24/2025 12:46 PM EDT [facility] Total Calcium, Plasma 8.8(L) 8.9 - 10.2 mg/dL 05/24/2025 12:46 PM EDT [facility] Total Protein 6.7 6.3 - 7.9 g/dL 05/24/2025 12:46 PM EDT [facility] Albumin, Plasma 3.2(L) 3.5 - 5.2 g/dL 05/24/2025 12:46 PM EDT [facility] AST, Plasma 34 10 - 50 U/L 05/24/2025 12:46 PM EDT [facility] ALT, Plasma 27 10 - 50 U/L 05/24/2025 12:46 PM EDT [facility] Alkaline Phosphatase, Plasma 143(H) 40 - 115 U/L 05/24/2025 12:46 PM EDT [facility] Total Bilirubin, Plasma 0.4 0.2 - 1.1 mg/dL 05/24/2025 12:46 PM EDT [facility] eGFRcr 99.0 mL/min/1.7 3m*2 05/24/2025 12:46 PM EDT [facility] Comment:Reported eGFRcr in m L/min/1.73m2 is based the CKD-EPI 2020 equation that does not use a race coefficient. Blood Venous blood specimen / Unknown (Central Line) Existing Catheter / Unknown 05/24/2025 12:01 PM EDT 05/24/2025 12:15 PM EDT us Carly Harry MD LAB BLOOD ORDERABLES Fi nal Result [facility] [address] [place] [address] * (ABNORMAL) CBC and differential (05/24/2025 12:01 PM EDT) WBC Count 9.38 3.70 - 10.30 10*3/uL LAB HEMATOLOGY METHOD 05/24/2025 12:10 PM EDT [facility] RBC Count 4.51(L) 4.60 - 6.10 10*6/uL LAB HEMATOLOGY METHOD 05/24/2025 12:10 PM EDT [facility] HGB 11.2(L) 13.7 - 17.5 g/dL LAB HEMATOLOGY METHOD 05/24/2025 12:10 PM EDT [facility] HCT 36.2(L) 40.0 - 51.0 % LAB HEMATOLOGY METHOD 05/24/2025 12:10 PM EDT [facility] Platelet Count 351 155 - 369 10*3/uL LAB HEMATOLOGY METHOD 05/24/2025 12:10 PM EDT [facility] MCV 80 79 - 98 fL LAB HEMATOLOGY METHOD 05/24/2025 12:10 PM EDT [facility] MCH 24.8(L) 26.0 - 32.0 pg LAB HEMATOLOGY METHOD 05/24/2025 12:10 PM EDT [facility] MCHC 30.9 30.7 - 35.5 g/dL LAB HEMATOLOGY METHOD 05/24/2025 12:10 PM EDT [facility] RDW 17.2(H) 11.5 - 14.5 % LAB HEMATOLOGY METHOD 05/24/2025 12:10 PM EDT [facility] MPV 8.2(L) 8.8 - 12.5 fL LAB HEMATOLOGY METHOD 05/24/2025 12:10 PM EDT [facility] nRBC 0.0 <=0.0 per 100 WBCs LAB HEMATOLOGY METHOD 05/24/2025 12:10 PM EDT [facility] Differential Type Automated LAB HEMATOLOGY METHOD 05/24/2025 12:10 PM EDT [facility] Neutrophils % 68 % LAB HEMATOLOGY METHOD 05/24/2025 12:10 PM EDT [facility] Lymphocytes % 13 % LAB HEMATOLOGY METHOD 05/24/2025 12:10 PM EDT [facility] Monocytes % 13 % LAB HEMATOLOGY METHOD 05/24/2025 12:10 PM EDT [facility] Eosinophils % 3 % LAB HEMATOLOGY METHOD 05/24/2025 12:10 PM EDT [facility] Basophils % 1 % LAB HEMATOLOGY METHOD 05/24/2025 12:10 PM EDT [facility] Immature Granulocytes % 2 % LAB HEMATOLOGY METHOD 05/24/2025 12:10 PM EDT [facility] Neutrophils Absolute 6.43(H) 1.60 - 6.10 10*3/uL LAB HEMATOLOGY METHOD 05/24/2025 12:10 PM EDT [facility] Lymphocytes Absolute 1.24 1.20 - 3.90 10*3/uL LAB HEMATOLOGY METHOD 05/24/2025 12:10 PM EDT [facility] Monocytes Absolute 1.26(H) 0.30 - 0.90 10*3/uL LAB HEMATOLOGY METHOD 05/24/2025 12:10 PM EDT [facility] Eosinophils Absolute 0.25 0.00 - 0.50 10*3/uL LAB HEMATOLOGY METHOD 05/24/2025 12:10 PM EDT [facility] Basophils Absolute 0.06 0.00 - 0.10 10*3/uL LAB HEMATOLOGY METHOD 05/24/2025 12:10 PM EDT [facility] Immature Granulocytes Absolute 0.14(H) 0.00 - 0.06 10*3/uL LAB HEMATOLOGY METHOD 05/24/2025 12:10 PM EDT [facility] Blood Venous blood specimen / Unknown (Central Line) Existing Catheter / Unknown 05/24/2025 12:01 PM EDT 05/24/2025 12:08 PM EDT Narrative [facility] - 05/24/2025 12:10 PM EDT Therapeutic decision making should be based on absolute values, rather than percentages. Carly Hrary MD LAB BLOOD ORDERABLES Fi nal Result [facility] [address] [place] [address] * PET/CT FDG Skull Base To Mid Thigh (05/23/2025 8:33 AM EDT) Anatomical Region Laterality Modality Nuclear Medicine Impressions 05/23/2025 2:25 PM EDT Slightly decreased FDG avidity in the region of the medial aspect of the uncinate process, likely representing favorable treatment response. There is increased FDG of the tracking along the CBD stent which is favored to be infectious or inflammatory in etiology. Continued attention on follow-up imaging recommended. No change in the previously noted pulmonary nodules which are similar in size and do not demonstrate FDG avidity. Persistent but decreased FDG avidity within the left aspect of the prostate, likely represent resolving focal prostatitis or BPH. CRITICAL RESULT: No. COMMUNICATION: Per this written report. By electronically signing this report, I, the attending physician, attest that I have personally reviewed the images/data for the above examination(s) and agree with the final edited report. Drafted by Cheng Brown D.O. on 05/23/2025 10:57 AM Final report signed by Ravinder Singh MD on 05/23/2025 2:25 PM Narrative 05/23/2025 2:25 PM EDT CLINICAL INDICATION: Past medical history significant for adenocarcinoma status post chemoradiation.. Patient presents for PET/CT for subsequent treatment strategy. TECHNIQUE: Preparation: Last oral intake (except water) on 05/23/2025 at 12:00 AM. Diabetic: Yes. 05/20/2025 Blood glucose at time of FDG administration: 138 mg/dL. Radiopharmaceutical: 12.80 mCi of F-18 FDG administered intravenously at left antecubital fossa at 0730 hours. Incubation interval: 51 minutes. Oral contrast: Not applicable. Positioning: Arms raised. PET/CT scanner: Siemens [id number] 40 mCT. PET/CT acquisition: [id number]. Standardized uptake value (SUV): Corrected for body weight only. CT: Low-dose, [id number], without intravenous contrast. TOTAL DLP (Dose Length Product): 540.29 mGy cm. COMPARISON/CORRELATION: PET/CT on February 25, 2025. CT chest abdomen and pelvis May 02, 2025. FINDINGS: Technical quality: Diagnostic. Measurements: Unless otherwise specified, all SUVs refer to maximum value in the target (mSUV). Reference: Reference: mean SUV liver: 2.8; previously: 2.5. CT linear measurements performed on axial images. Head and Neck: No suspicious metabolically active lesions within the head and neck. No suspicious metabolically active or pathologically enlarged adenopathy. Unremarkable thyroid gland. Clear paranasal sinuses and mastoid air-cells. Chest: No suspicious metabolically active lesions within the chest. No suspicious metabolically active or pathologically enlarged hilar or mediastinal adenopathy. Right chest Port-A-Cath with tip terminating in the region of the in the region of the superior cavoatrial junction. Redemonstrated solid noncalcified right middle lobe pulmonary nodule which is unchanged in size and does not demonstrate FDG avidity. Unchanged left lower lobe nonhypermetabolic pulmonary nodule. Similar centrilobular emphysema most apparent at the lung apices. Minimal bibasilar atelectasis, mild middle lobe and lingular scarring. Sequelae of prior granulomatous insult. Normal caliber of the thoracic aorta. Aortic and coronary calcifications. No pleural effusion, pericardial effusion or pneumothorax. Abdomen and Pelvis: No suspicious metabolically active or pathologically enlarged retroperitoneal or pelvic adenopathy. Solid Abdominal Organs: No suspicious focal hypermetabolic lesions in the liver significantly greater than the heterogeneous physiologic uptake. Unremarkable noncontrast appearance of the liver. Cholelithiasis noted. Aerobilia noted, predominantly in the left hemiliver. Calcified splenic granulomas, otherwise unremarkable noncontrast appearance of the spleen. Photopenic simple appearing renal cyst arising from the inferior pole right kidney. Unremarkable kidneys. No hydronephrosis. No suspicious adrenal masses. Redemonstrated ill-defined FDG avidity in the region of the uncinate process and the medial aspect of the pancreas which demonstrates a maximum SUV of 3.4, previously 4.3 (series 4 image 183). There is a CBD stent in place with increased FDG avidity along the CBD stent. GI Tract/Mesentery/Peritoneum: Diffuse moderate FDG activity fusing to gastric mucosa, likely gastritis. Clinical correlation recommended. Physiologic bowel activity, without suspicious focal FDG uptake. The large and small bowel appear normal in caliber. Sigmoid diverticulosis without noncontrast CT evidence of diverticulitis. No suspicious peritoneal/mesenteric findings. Pelvic Viscera: No suspicious masses. No bladder wall thickening. Decreased FDG avidity in the left aspect of the prostate maximum SUV of 3, previously 5.2. Vasculature: Normal caliber of the abdominal aorta Calcified atherosclerotic changes. Free Fluid: No ascites or drainable fluid collection Skeleton and Soft Tissues: Fat-containing periumbilical hernia with mild FDG avidity likely inflammation. No suspicious metabolically active osseous or soft tissue lesions. No aggressive osseous lytic or sclerotic lesions. Multilevel degenerative changes. Procedure Note Ravinder Singh MD - 05/23/2025 CLINICAL INDICATION: Past medical history significant for adenocarcinoma status postchemoradiation.. Patient presents for PET/CT for subsequent treatmentstrategy. TECHNIQUE: Preparation: Last oral intake (except water) on 05/23/2025 at 12:00 AM. Diabetic: Yes. 05/20/2025 Blood glucose at time of FDG administration: 138 mg/dL. Radiopharmaceutical: 12.80 mCi of F-18 FDG administered intravenously atleft antecubital fossa at 0730 hours. Incubation interval: 51 minutes. Oral contrast: Not applicable. Positioning: Arms raised. PET/CT scanner: Siemens [id number] 40 mCT. PET/CT acquisition: [id number]-aep-thighs. Standardized uptake value (SUV): Corrected for body weight only. CT: Low-dose, [id number]-peut, without intravenous contrast. TOTAL DLP (Dose Length Product): 540.29 mGy cm. COMPARISON/CORRELATION: PET/CT on February 25, 2025. CT chest abdomen and pelvis May 02, 2025. FINDINGS: Technical quality: Diagnostic. Measurements: Unless otherwise specified, all SUVs refer to maximum valuein the target (mSUV). Reference: Reference: mean SUV liver: 2.8; previously: 2.5. CT linear measurements performed on axial images. Head and Neck: No suspicious metabolically active lesions within the head and neck. No suspicious metabolically active or pathologically enlargedadenopathy. Unremarkable thyroid gland. Clear paranasal sinuses and mastoid air-cells. Chest: No suspicious metabolically active lesions within the chest. No suspicious metabolically active or pathologically enlarged hilar ormediastinal adenopathy. Right chest Port-A-Cath with tip terminating in the region of the in theregion of the superior cavoatrial junction. Redemonstrated solid noncalcified right middle lobe pulmonary nodule whichis unchanged in size and does not demonstrate FDG avidity. Unchanged leftlower lobe nonhypermetabolic pulmonary nodule. Similar centrilobularemphysema most apparent at the lung apices. Minimal bibasilar atelectasis, mild middle lobe and lingular scarring. Sequelae of prior granulomatous insult. Normal caliber of the thoracic aorta. Aortic and coronarycalcifications. No pleural effusion, pericardial effusion or pneumothorax. Abdomen and Pelvis: No suspicious metabolically active or pathologically enlargedretroperitoneal or pelvic adenopathy. Solid Abdominal Organs: No suspicious focal hypermetabolic lesions in the liver significantlygreater than the heterogeneous physiologic uptake. Unremarkablenoncontrast appearance of the liver. Cholelithiasis noted. Aerobilia noted, predominantly in the left hemiliver. Calcified splenic granulomas, otherwise unremarkable noncontrastappearance of the spleen. Photopenic simple appearing renal cyst arising from the inferior poleright kidney. Unremarkable kidneys. No hydronephrosis. No suspicious adrenal masses. Redemonstrated ill-defined FDG avidity in the region of the uncinateprocess and the medial aspect of the pancreas which demonstrates a maximumSUV of 3.4, previously 4.3 (series 4 image 183). There is a CBD stent inplace with increased FDG avidity along the CBD stent. GI Tract/Mesentery/Peritoneum: Diffuse moderate FDG activity fusing to gastric mucosa, likely gastritis.Clinical correlation recommended. Physiologic bowel activity, without suspicious focal FDG uptake. The large and small bowel appear normal in caliber. Sigmoid diverticulosis without noncontrast CT evidence ofdiverticulitis. No suspicious peritoneal/mesenteric findings. Pelvic Viscera: No suspicious masses. No bladder wall thickening.Decreased FDG avidity in the left aspect of the prostate maximum SUV of 3,previously 5.2. Vasculature: Normal caliber of the abdominal aorta Calcified atherosclerotic changes. Free Fluid: No ascites or drainable fluid collection Skeleton and Soft Tissues: Fat-containing periumbilical hernia with mild FDG avidity likelyinflammation. No suspicious metabolically active osseous or soft tissue lesions. No aggressive osseous lytic or sclerotic lesions. Multilevel degenerative changes. IMPRESSION: Slightly decreased FDG avidity in the region of the medial aspect of theuncinate process, likely representing favorable treatment response. Thereis increased FDG of the tracking along the CBD stent which is favored lizzy infectious or inflammatory in etiology. Continued attention onfollow-up imaging recommended. No change in the previously noted pulmonary nodules which are similar insize and do not demonstrate FDG avidity. Persistent but decreased FDG avidity within the left aspect of theprostate, likely represent resolving focal prostatitis or BPH. CRITICAL RESULT: No. COMMUNICATION: Per this written report. By electronically signing this report, I, the attending physician, attmateoat I have personally reviewed the images/data for the aboveexamination(s) and agree with the final edited report. Drafted by Cheng Brown D.O. on 05/23/2025 10:57 AM Final report signed by Ravinder Singh MD on 05/23/2025 2:25 PM Carly Harry MD [facility] NM PROCEDURES Final Result * (ABNORMAL) CBC and differential (05/03/2025 2:29 PM EDT) WBC Count 6.50 3.70 - 10.30 10*3/uL LAB HEMATOLOGY METHOD 05/03/2025 3:16 PM EDT [facility] RBC Count 4.27(L) 4.60 - 6.10 10*6/uL LAB HEMATOLOGY METHOD 05/03/2025 3:16 PM EDT [facility] HGB 10.9(L) 13.7 - 17.5 g/dL LAB HEMATOLOGY METHOD 05/03/2025 3:16 PM EDT [facility] HCT 34.7(L) 40.0 - 51.0 % LAB HEMATOLOGY METHOD 05/03/2025 3:16 PM EDT [facility] Platelet Count 201 155 - 369 10*3/uL LAB HEMATOLOGY METHOD 05/03/2025 3:16 PM EDT [facility] MCV 81 79 - 98 fL LAB HEMATOLOGY METHOD 05/03/2025 3:16 PM EDT [facility] MCH 25.5(L) 26.0 - 32.0 pg LAB HEMATOLOGY METHOD 05/03/2025 3:16 PM EDT [facility] MCHC 31.4 30.7 - 35.5 g/dL LAB HEMATOLOGY METHOD 05/03/2025 3:16 PM EDT [facility] RDW 14.5 11.5 - 14.5 % LAB HEMATOLOGY METHOD 05/03/2025 3:16 PM EDT [facility] MPV 9.4 8.8 - 12.5 fL LAB HEMATOLOGY METHOD 05/03/2025 3:16 PM EDT [facility] nRBC 0.0 <=0.0 per 100 WBCs LAB HEMATOLOGY METHOD 05/03/2025 3:16 PM EDT [facility] Differential Type Automated LAB HEMATOLOGY METHOD 05/03/2025 3:16 PM EDT [facility] Neutrophils % 71 % LAB HEMATOLOGY METHOD 05/03/2025 3:16 PM EDT [facility] Lymphocytes % 13 % LAB HEMATOLOGY METHOD 05/03/2025 3:16 PM EDT [facility] Monocytes % 11 % LAB HEMATOLOGY METHOD 05/03/2025 3:16 PM EDT [facility] Eosinophils % 2 % LAB HEMATOLOGY METHOD 05/03/2025 3:16 PM EDT [facility] Basophils % 1 % LAB HEMATOLOGY METHOD 05/03/2025 3:16 PM EDT [facility] Immature Granulocytes % 2 % LAB HEMATOLOGY METHOD 05/03/2025 3:16 PM EDT [facility] Neutrophils Absolute 4.64 1.60 - 6.10 10*3/uL LAB HEMATOLOGY METHOD 05/03/2025 3:16 PM EDT [facility] Lymphocytes Absolute 0.82(L) 1.20 - 3.90 10*3/uL LAB HEMATOLOGY METHOD 05/03/2025 3:16 PM EDT [facility] Monocytes Absolute 0.71 0.30 - 0.90 10*3/uL LAB HEMATOLOGY METHOD 05/03/2025 3:16 PM EDT [facility] Eosinophils Absolute 0.15 0.00 - 0.50 10*3/uL LAB HEMATOLOGY METHOD 05/03/2025 3:16 PM EDT [facility] Basophils Absolute 0.06 0.00 - 0.10 10*3/uL LAB HEMATOLOGY METHOD 05/03/2025 3:16 PM EDT [facility] Immature Granulocytes Absolute 0.12(H) 0.00 - 0.06 10*3/uL LAB HEMATOLOGY METHOD 05/03/2025 3:16 PM EDT [facility] Blood Blood sample taken from central line / Unknown (Central Line) Existing Catheter / Unknown 05/03/2025 2:29 PM EDT 05/03/2025 2:35 PM EDT Narrative [facility] - 05/03/2025 3:16 PM EDT Therapeutic decision making should be based on absolute values, rather than percentages. Carly Harry MD LAB BLOOD ORDERABLES Fi nal Result [facility] [address] [place] [address] * (ABNORMAL) Cancer antigen 19-9 (04/26/2025 1:53 PM EDT) CA 19.9 230(H) <36 U/mL 04/26/2025 3:19 PM EDT [facility] Blood Venous blood specimen / Unknown (Central Line) Existing Catheter / Unknown 04/26/2025 1:53 PM EDT 04/26/2025 2:38 PM EDT Narrative [facility] - 04/26/2025 3:19 PM EDT Performed by [employer]iera electrochemiluminescent immunoassay. Results obtained with different test methods or kits cannot be used interchangeably. Carly Harry MD LAB BLOOD ORDERABLES Fi nal Result [facility] [address] [place] [address] * (ABNORMAL) Comprehensive metabolic panel (04/26/2025 1:53 PM EDT) Glucose, Plasma 105(H) 74 - 99 mg/dL 04/26/2025 3:16 PM EDT [facility] BUN, Plasma 13 8 - 23 mg/dL 04/26/2025 3:16 PM EDT [facility] Creatinine, Plasma 0.68(L) 0.70 - 1.20 mg/dL 04/26/2025 3:16 PM EDT [facility] BUN/Creatinine Ratio 19 04/26/2025 3:16 PM EDT [facility] Sodium, Plasma 140 136 - 145 mmol/L 04/26/2025 3:16 PM EDT [facility] Potassium, Plasma 4.8 3.6 - 4.9 mmol/L 04/26/2025 3:16 PM EDT [facility] Chloride, Plasma 108(H) 97 - 107 mmol/L 04/26/2025 3:16 PM EDT [facility] CO2, Plasma 22 22 - 29 mmol/L 04/26/2025 3:16 PM EDT [facility] Anion Gap 10 6 - 16 mmol/L 04/26/2025 3:16 PM EDT [facility] Total Calcium, Plasma 8.6(L) 8.9 - 10.2 mg/dL 04/26/2025 3:16 PM EDT [facility] Total Protein 6.3 6.3 - 7.9 g/dL 04/26/2025 3:16 PM EDT [facility] Albumin, Plasma 3.3(L) 3.5 - 5.2 g/dL 04/26/2025 3:16 PM EDT [facility] AST, Plasma 33 10 - 50 U/L 04/26/2025 3:16 PM EDT [facility] ALT, Plasma 40 10 - 50 U/L 04/26/2025 3:16 PM EDT [facility] Alkaline Phosphatase, Plasma 132(H) 40 - 115 U/L 04/26/2025 3:16 PM EDT [facility] Total Bilirubin, Plasma 0.3 0.2 - 1.1 mg/dL 04/26/2025 3:16 PM EDT [facility] eGFRcr 98.1 mL/min/1.7 3m*2 04/26/2025 3:16 PM EDT [facility] Comment:Reported eGFRcr in m L/min/1.73m2 is based the CKD-EPI 2020 equation that does not use a race coefficient. Blood Venous blood specimen / Unknown (Central Line) Existing Catheter / Unknown 04/26/2025 1:53 PM EDT 04/26/2025 2:38 PM EDT Carly Harry MD LAB BLOOD ORDERABLES Fi nal Result [facility] [address] [place] [address] * (ABNORMAL) CBC and differential (04/26/2025 1:53 PM EDT) WBC Count 6.52 3.70 - 10.30 10*3/uL LAB HEMATOLOGY METHOD 04/26/2025 2:07 PM EDT [facility] RBC Count 4.56(L) 4.60 - 6.10 10*6/uL LAB HEMATOLOGY METHOD 04/26/2025 2:07 PM EDT [facility] HGB 11.5(L) 13.7 - 17.5 g/dL LAB HEMATOLOGY METHOD 04/26/2025 2:07 PM EDT [facility] HCT 37.2(L) 40.0 - 51.0 % LAB HEMATOLOGY METHOD 04/26/2025 2:07 PM EDT [facility] Platelet Count 381(H) 155 - 369 10*3/uL LAB HEMATOLOGY METHOD 04/26/2025 2:07 PM EDT [facility] MCV 82 79 - 98 fL LAB HEMATOLOGY METHOD 04/26/2025 2:07 PM EDT [facility] MCH 25.2(L) 26.0 - 32.0 pg LAB HEMATOLOGY METHOD 04/26/2025 2:07 PM EDT [facility] MCHC 30.9 30.7 - 35.5 g/dL LAB HEMATOLOGY METHOD [facility]25 [facility] RDW 14.7(H) 11.5 - 14.5 % LAB HEMATOLOGY METHOD 04/26/2025 2:07 PM EDT [facility] MPV 8.5(L) 8.8 - 12.5 fL LAB HEMATOLOGY METHOD 04/26/2025 2:07 PM EDT [facility] nRBC 0.0 <=0.0 per 100 WBCs LAB HEMATOLOGY METHOD 04/26/2025 2:07 PM EDT [facility] Differential Type Automated LAB HEMATOLOGY METHOD 04/26/2025 2:07 PM EDT [facility] Neutrophils % 56 % LAB HEMATOLOGY METHOD 04/26/2025 2:07 PM EDT [facility] Lymphocytes % 16 % LAB HEMATOLOGY METHOD 04/26/2025 2:07 PM EDT [facility] Monocytes % 18 % LAB HEMATOLOGY METHOD 04/26/2025 2:07 PM EDT [facility] Eosinophils % 5 % LAB HEMATOLOGY METHOD 04/26/2025 2:07 PM EDT [facility] Basophils % 2 % LAB HEMATOLOGY METHOD 04/26/2025 2:07 PM EDT [facility] Immature Granulocytes % 3 % LAB HEMATOLOGY METHOD 04/26/2025 2:07 PM EDT [facility] Neutrophils Absolute 3.70 1.60 - 6.10 10*3/uL LAB HEMATOLOGY METHOD 04/26/2025 2:07 PM EDT [facility] Lymphocytes Absolute 1.05(L) 1.20 - 3.90 10*3/uL LAB HEMATOLOGY METHOD 04/26/2025 2:07 PM T [facility] Monocytes Absolute 1.14(H) 0.30 - 0.90 10*3/uL LAB HEMATOLOGY METHOD 04/26/2025 2:07 PM EDT [facility] Eosinophils Absolute 0.33 0.00 - 0.50 10*3/uL LAB HEMATOLOGY METHOD 04/26/2025 2:07 PM EDT [facility] Basophils Absolute 0.10 0.00 - 0.10 10*3/uL LAB HEMATOLOGY METHOD 04/26/2025 2:07 PM EDT [facility] Immature Granulocytes Absolute 0.20(H) 0.00 - 0.06 10*3/uL LAB HEMATOLOGY METHOD 04/26/2025 2:07 PM EDT [facility] Blood Venous blood specimen / Unknown (Central Line) Existing Catheter / Unknown 04/26/2025 1:53 PM EDT 04/26/2025 2:05 PM EDT Narrative [facility] - 04/26/2025 2:07 PM EDT Therapeutic decision making should be based on absolute values, rather than percentages. Carly Harry MD LAB BLOOD ORDERABLES [facility] [address] [place] [address] documented in this encounter Visit Diagnoses Diagnosis Pancreatic adenocarcinoma (CMS/HCC)- Primary Malignant neoplasm of pancreas, part unspecified Chemotherapy-induced neuropathy (CMS/HCC) Encounter for antineoplastic chemotherapy Neoplastic (malignant) related fatigue Chemotherapy-induced fatigue Chemotherapy-induced nausea Pancreatic adenocarcinoma (CMS/HCC) Malignant neoplasm of pancreas, part unspecified documented in this encounter Additional Health Concerns Assessment Noted Time PHQ-9 Depression Total Score: 0 10/19/20 10:40 AM EST A fall risk assessment has been complete d for the patient 04/26/2025 3:29 PM EDT A Body Mass Index follow-up plan has been documented for the patient 02/23/2025 1:24 PM EDT documented as of this encounter Care Teams Hydraulic Rubbish Compactor Mechanic Relationship Specialty Start Date End Date Ritchie Lopez MD [address] [place], [place] [id number] PCP - General 03/30/24 Laura Maher MD [address] [facility] [address] [place] [facility] [address] [place] [id number] Consulting Physician Medical Oncology 07/07/24 Isaac Webb MD 800 [facility] [address] [place] [phone] Service Attending Radiation Oncology 10/26/24 documented as of this encounter
--- OUTSIDE RECORDS SUMMARY | 2025-04-26 15:00 | XMS_ITS | Encounter Summary ---
Author Organization [facility] Address [address] [place] [address] Care Team Providers Care Pesticide Applicator Name Role Phone Ritchie Lopez MD Primary Care Provider [phone] Laura Maher MD Unavailable [phone] Isaac Webb MD Unavailable Reason for Visit * Episode Based Medications (Routine) - Authorized Specialty Diagnoses / Procedures Referred By Contac t Referred To Contact Diagnoses Pancreatic adenocarcinoma (CMS/HCC) Procedures Gemcitabine Weekly x 3 / Nab-Paclitaxel Weekly x 3 Every 28 Days Carly Gaxiola MD [address] [address] Phone: tel: fax: Carly Gaxiola MD [address] [address] Phone: tel: fax: Referral ID Status Reason Start Date Expiration Date V isits Requested Visits Authorized [id number] Authorized 03/28/2025 09/27/2026 1 29 Encounter Details Date Type Department Care Team (Latest Contact Info) Description 04/26/2025 3:00 PM EDT - 04/26/2025 11:59 PM EDT Hospital Encounter [facility] [address] [place] [address] Pancreatic adenocarcinoma (CMS/HCC) (Primary Dx) Discharge Disposition: Home or Self Care Social History Tobacco Use Types Packs/Day Years Used Date Smoking Tobacco: Former Cigarettes 2 30 Q uit: 05/31/2003 Passive Smoke Exposure: Past Smokeless Tobacco: Never Tobacco Cessation:Counseling Given: Not Answered Comments:Quit in 2002 Alcohol Use Standard Drinks/Week [...] drink first t cristy in the morning ([employer]) to steady your nerves or to get rid of a hangover? 0 04/02/2024 CAGE Questionnaire Score 0 024 Utilities Answer Date Recorded In the past 12 months has th [employer] electric, gas, oil, or water company threatened [...] Sign Reading Time Taken Comments Blood Pressure 177/89 04/26/2025 3:34 PM EDT Pulse 62 04/26/2025 3:29 PM EDT Temperature 36.4 C (97.5 F) 04/26/2025 3:29 PM EDT Respiratory Rate 16 04/26/2025 3:29 PM EDT Oxygen Saturation 96% 04/26/2025 3:29 PM EDT Inhaled Oxygen Concentration - - Weight 79.8 kg (175 lb 14.8 oz) 04/26/2025 3:29 PM EDT Height 172.7 cm (5' 8 ) 04/26/2025 3:29 PM EDT Body Mass Index 26.75 04/26/2025 3:29 PM EDT documented in this encounter Functional [...] Amber Beltran documented as of this encounter Medications at Time of Discharge [...] mouth daily. 30 tablet 3 03/28/2025 pancrelipase, Dno-Xwbb-Pqwv, (Creon) [id number] units capsule delayed-release particles capsule Take 1 [...] by mouth 1 (one) time each day. documented as of this encounter Plan of Treatment Upcoming Encounters Date Type Department Care Team (Late st Contact Info) Description 06/21/2025 2:00 PM EDT Office Visit [facility] Multidisciplinary Oncology Clinic [address] [place] [address] Leatha Higgins APRN 800 [facility] [address] [place] d[address] [place] [address] 06/21/2025 3:30 PM EDT Appointment [facility] Infusion Clinic [address] [place] [address] 09/13/2025 2:40 PM EDT Office Visit [facility] Medicine Specialties [address] [place] [address] Douglas Schroeder, ROZINA [address] [facility] [address] [place] [address] documented as of this encounter Visit Diagnoses Diagnosis Pancreatic adenocarcinoma [...] refer to [id number]. Protect from light., On Fri04/26/25 at 1615, For 1 dose, UndilutedIndications:Pancrea tic adenocarcinoma (CMS/HCC) New Bag 04/26/2025 4:41 PM EDT 200 mg 120 mL/hr dexamethasone (Decadron) tablet 12 mg 12 mg, Oral, Once, 1 dose, On Fri04/26/25 at 1545, RoutineIndications:Pancreati c adenocarcinoma (CMS/HCC) Given 04/26/2025 3:50 PM EDT 12 mg gemcitabine (Gemzar) 1,900 mg in sodium chloride 0.9 % 100 mL IVPB 1,900 mg (1,000 mg/m2 1.9 m2 Treatment Plan BSA from Recorded weight), Intravenous, at 359.9 mL/hr, Administer over 30 Minutes, Once, Hazardous Drug-Tier 1 Precautions. Dispose in BLACK Hazardous Waste Container. Chemotherapy: refer to [id number]., On Fri04/26/25 at 1645, For 1 dose, NS 100 mLIndications:Pancreatic adenocarcinoma (CMS/HCC) New Bag 04/26/2025 5:15 PM EDT 1,900 mg 359.9 mL/hr documented in this encounter Additional Health Concerns Assessment Noted Time PHQ-9 Depression Total Score: 0 10/19/20 10:40 AM EST A fall risk assessment has been complete d for the patient 04/26/2025 3:29 PM EDT A Body Mass Index follow-up plan has been documented for the patient 02/23/2025 1:24 PM EDT documented as of this encounter Care Teams Pesticide Applicator Relationship Specialty Start Date End Date Ritchie Lopez MD [address] [place] [id number] PCP - General 03/30/24 Laura Maher MD [address] [facility] [address] [place] [address] Consulting Physician Medical Oncology 07/07/24 Isaac Webb MD [address] [facility] [address] [place] [address] Service Attending Radiation Oncology 10/26/24 documented as of this encounter
--- OUTSIDE RECORDS SUMMARY | 2025-05-02 10:12 | XMS_ITS | Encounter Summary ---
Author Organization [facility] Address [address] [place] [address] Care Team Providers Care Linter Tender Name Role Phone Ritchie Lopez MD Primary Care Provider [phone] Laura Maher MD Unavailable [phone] Isaac Webb MD Unavailable Reason for Referral * Imaging (Routine) - Closed Specialty Diagnoses / Procedures Referred By Elida melendez Referred To Contact Radiology Diagnoses Malignant neoplasm of head of pancreas (CMS/HCC) Procedures CT Abdomen Pelvis w IV Contrast Laura Maher MD [address] [address] Phone: tel: fax: Referral ID Status Reason Start Date Expiration Date Visits Re quested Visits Authorized [id number] Closed 02/22/2025 08/24/2026 1 1 * Imaging (Routine) - Closed Specialty Diagnoses / Procedures Referred By Elida melendez Referred To Contact Radiology Diagnoses Malignant neoplasm of head of pancreas (CMS/HCC) Procedures CT Chest w IV Contrast Laura Maher MD [address] [address] Phone: tel: fax: Referral ID Status Reason Start Date Expiration Date Visits Re quested Visits Authorized [id number] Closed 02/22/2025 08/24/2026 1 1 Reason for Visit * Imaging (Routine) - Closed Specialty Diagnoses / Procedures Referred By Contac t Referred To Contact Radiology Diagnoses Malignant neoplasm of head of pancreas (CMS/HCC) Procedures CT Abdomen Pelvis w IV Contrast Laura Maher MD [address] [facility] [address] [place] [address] Phone: tel: fax: Referral ID Status Reason Start Date Expiration Date Visits Re quested Visits Authorized [id number] Closed 02/22/2025 08/24/2026 1 1 Encounter Details Date Type Department Care Team (Latest Contact Info) Description 05/02/2025 10:12 AM EDT - 05/02/2025 11:59 PM EDT Hospital Encounter [facility] [address] [place] [address] Malignant neoplasm of head of pancreas (CMS/HCC) Discharge Disposition: Home or Self Care Social [...] place to sleep or slept in a half-way (including now)? No 04/02/2024 PHQ-9 Answer Date [...] drink first t cristy in the morning (EYE-SPONGE BUFFER) to steady your nerves or to get [...] PM EDT documented as of this encounter Medications at [...] mouth daily. 30 tablet 3 03/28/2025 pancrelipase, Cew-Irdx-Pixe, (Creon) [id number] units capsule delayed-release particles capsule Take 1 [...] each day. documented as of this encounter Miscellaneous Notes * Lian Galloway - Jocy Cabezas - 05/02/2025 10:17 AM EDT Images from the original note were not included. 1639 Caring for Yourself after Contrast Imaging If you had ORAL contrast: ?? You can go back to your normal diet and activities as tolerated. ?? Drink plenty of fluids, unless told otherwise. If you had IV contrast: ?? You can go back to your normal diet and activities as tolerated. ?? Drink plenty of fluids, unless told otherwise. ?? Leave a bandage on the site for 30 minutes (where the IV was inserted or blood was drawn). If you had Intravesical (bladder) contrast: ?? Return to normal diet and activity. What you need to know about delayed reaction to IV contrast What is IV Contrast? ?? Contrast is a dye that is put into your body through an IV. ?? It is used for imaging scans such as CT scans and MRIs. ?? The contrast makes blood vessels, organs and other parts of your body show up better on the scan. What do I need to do after IV contrast? ?? Drink lots of fluids. This will help flush the contrast out of your system. ?? Drink 2-3 extra glasses or bottles of water within 4 hours of your scan. What is a contrast reaction? ?? A contrast reaction is a bad side effect from the contrast dye. ?? It is rare but it does happen. ?? They can be mild - such as sneezing, itching, or hives. ?? They can be severe - such as trouble breathing, throat swelling, and irregular heart beat. When do these reactions happen? ?? They often happen right after the contrast is injected. ?? Some happen hours after going home. Go to the nearest Emergency Department right away if you have any of these symptoms after you leavethe clinic or hospital. ?? Sneezing ?? Itching in your mouth, throat, eyes, ears, or skin ?? Rash or hives ?? Throwing up or stomach sickness ?? High heart rate or ?racing? of your heart ?? Feeling dizzy or woozy ?? Feeling short of breath or like you can?t take a deep breath ?? Feeling very anxious for no other reason It is very important that these reactions be treated. Tell the doctor or nurse that you are having a reaction to IV contrast dye. Do not ignore any sign of a reaction! All reactions must be assessed by a doctor. Call 911 if you are alone and your reaction is more than mild sneezing or itching. If you have a mild reaction, call to speak with a Radiologist, explain that you havehad a contrast reaction, as this needs to be added to your medical record. documented in this encounter Plan of Treatment Upcoming Encounters Date Type Department Care Team (Late st Contact Info) Description 06/21/2025 2:00 PM EDT Office Visit [facility] [address] [place] [address] Leatha Higgins, CUSTOMER SERVICES SUPERVISOR [address] [facility] [address] [place] [facility] [address] [place] [address] 06/21/2025 3:30 PM EDT Appointment [facility] [address] [place] [address] 09/13/2025 2:40 PM EDT Office Visit [facility] [address] [place] [address] Douglas Schroeder, PA [address] [facility] [address] [place] [address] documented as of this encounter Procedures Procedure Name Priority Date/Time Associated Diagnosis Comments CT ABDOMEN PELVIS W IV CONTRAST Routine 05/02/2025 11:20 AM EDT Malignant neoplasm of head of pancreas (CMS/HCC) CT CHEST W IV CONTRAST Routine 05/02/2025 11:20 AM EDT Malignant neoplasm of head of pancreas (CMS/HCC) documented in this encounter Results * CT Abdomen Pelvis w IV Contrast (05/02/2025 11:20 AM EDT) Anatomical Region Laterality Modality Abdomen, Pelvis Computed Tomogra phy Impressions 05/02/2025 1:59 PM EDT Chest: Partial resolution of the previously described new left basilar pulmonary nodule. Stable right middle lobe pulmonary nodule. Abdomen/Pelvis: No definite evidence of disease progression. There is increasingly conspicuous peribiliary hypoenhancement/edema-like appearance within hepatic segment IVb that could represent a degree of cholangitis. Please correlate with labs. This confounds evaluation for metastatic disease in this segment. If there is clinical/biochemical concern for progression, can consider MRI for better evaluation. Grossly stable appearance of the pancreatic uncinate process mass with similar contiguous vascular involvement. CRITICAL RESULT: No. COMMUNICATION: Per this written report. Drafted by Brittany Duncan MD on 05/02/2025 12:29 PM Final report signed by Brittany Duncan MD on 05/02/2025 1:59 PM Narrative 05/02/2025 1:59 PM EDT CLINICAL INDICATION: Pancreatic cancer post 6 months chemo adn chemo rt, treatment response TECHNIQUE: Multiple axial CT images were obtained from thoracic inlet through pubic symphysis following administration of IV contrast, Omnipaque 300, 100 mL. Reformatted images in the coronal and sagittal planes were generated from the axial data set to facilitate diagnostic accuracy. Total DLP (Dose-Length Product): 943.82 mGy.cm (accession [id number]), 943.82 mGy.cm (accession [id number]) Please note: The reported value represents the total of one or more individual components during the CT acquisition on this date and at this time, and as such, the same value may appear in more than one CT report depending on the interpreting/reporting physicians. COMPARISON: F-18 FDG PET/CT 02/17/2025 Thoraco[address]dominal CTs 02/22/2025 FINDINGS: Chest: Lymph Nodes and Mediastinum: No suspicious new or enlarging adenopathy. Few prominently enhancing but subcentimeter mediastinal lymph nodes are grossly unchanged in size and distribution. Unremarkable thyroid. Cardiovascular: Ectatic ascending thoracic aorta. Normal caliber heart. No central pulmonary emboli. No pericardial effusion. Right chest wall Port-A-Cath with tip terminating within the mid to inferior SVC. Lungs and Pleura: Interval partial resolution of the previously described new left basilar pulmonary nodule on 4:277, now subsolid in composition. Unchanged 9 mm right middle lobe nodule on 4:217. Few additional subcentimeter nodules are also grossly unchanged in appearance. No suspicious new or enlarging sizable pulmonary nodules. No suspicious enhancing pleural nodularity or pleural effusions. Musculoskeletal and Body Wall: No aggressive lytic/blastic osseous lesions or chest wall soft tissue masses. Moderate bilateral shoulder osteoarthrosis with subchondral cystic change involving the inferolateral left glenoid on 4:50. Abdomen/Pelvis: Solid Abdominal Organs: No significant change in appearance of the poorly marginated medial uncinate process lesion on 8:96 with similar associated contiguous soft tissue rind about the SMA and celiac axes. There is up to 160 degree of abutment of the SMA without caliber narrowing. 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 There is less than 90 degrees abutment of the SMV and celiac axis. Overall, although interpretation for degree of involvement may differ between readers, the radiologic appearance is similar to 3 months prior when remeasured similarly. Unremarkable appearance of the rest of the pancreas. The stented common bile duct and expected upstream pneumobilia appear similar. There is an increasingly conspicuous poorly marginated peribiliary edema-like signal involving the hepatic segment IVb on 8:71, perhaps representing an element of focal cholangitic change. There is slightly more focal hypoattenuation along the anterolateral subcapsular margin in this region measuring 22 mm on 8:68 that could potentially represent a metastasis, but again is more likely to represent focal cholangitic change. There are no other convincingly suspicious discrete hepatic focal lesions. Calcified splenic granulomata. Unremarkable adrenal glands, and kidneys aside from a large simple lateral lower polar renal cortical cyst. GI Tract/Mesentery/Peritoneum: No evidence of GI tract obstruction, perforation, or obvious focal inflammation. No suspicious sizable mesenteric/peritoneal masses. Unremarkable appendix. Pelvic Viscera: Enlarged prostate. Some smooth circumferential wall thickening of the urinary bladder which may be postobstructive but could also quite likely be due to underdistention. Lymph Nodes/Vasculature: No convincingly suspicious adenopathy by CT size criteria.. Peripancreatic vasculature as described above. Moderate aortoiliac calcific atherosclerosis without aneurysmal change. Free Fluid: Small volume pelvic ascites that is similar to 3 months prior. Musculoskeletal and Body Wall: No clearly aggressive lytic/blastic osseous lesions or body wall soft tissue masses. Moderate sacroiliac degenerative change. A well marginated lucency within the right posterior ilium is likely benign, perhaps a cyst or island of benign yellow marrow. Procedure Note Brittany Duncan MD - 05/02/2025 CLINICAL INDICATION: Pancreatic cancer post 6 months chemo adn chemo rt, treatment response TECHNIQUE: Multiple axial CT images were obtained from thoracic inlet through pubicsymphysis following administration of IV contrast, Omnipaque 300, 100 mL.Reformatted images in the coronal and sagittal planes were generated fromthe axial data set to facilitate diagnostic accuracy. Total DLP (Dose-Length Product): 943.82 mGy.cm (accession [id number]),943.82 mGy.cm (accession [id number]) Please note: The reported valuerepresents the total of one or more individual components during the CTacquisition on this date and at this time, and as such, the same value mayappear in more than one CT report depending on the interpreting/reportingphysicians. COMPARISON: F-18 FDG PET/CT 02/17/20[address]s 02/22/2025 FINDINGS: Chest: Lymph Nodes and Mediastinum: No suspicious new or enlarging adenopathy.Few prominently enhancing but subcentimeter mediastinal lymph nodes aregrossly unchanged in size and distribution. Unremarkable thyroid. Cardiovascular: Ectatic ascending thoracic aorta. Normal caliber heart. Nocentral pulmonary emboli. No pericardial effusion. Right chest ibddUkce-M-Bsyb with tip terminating within the mid to inferior SVC. Lungs and Pleura: Interval partial resolution of the previously describednew left basilar pulmonary nodule on 4:277, now subsolid in composition.Unchanged 9 mm right middle lobe nodule on 4:217. Few additionalsubcentimeter nodules are also grossly unchanged in appearance. Nosuspicious new or enlarging sizable pulmonary nodules. No suspiciousenhancing pleural nodularity or pleural effusions. Musculoskeletal and Body Wall: No aggressive lytic/blastic osseous lesionsor chest wall soft tissue masses. Moderate bilateral shoulderosteoarthrosis with subchondral cystic change involving the inferolateralleft glenoid on 4:50. Abdomen/Pelvis: Solid Abdominal Organs: No significant change in appearance of the poorlymarginated medial uncinate process lesion on 8:96 with similar associatedcontiguous soft tissue rind about the SMA and celiac axes. There is up to160 degree of abutment of the SMA without caliber narrowing. There md03-145 degree posterior abutment of the main portal vein. There is lessthan 90 degrees abutment of the SMV and celiac axis. Overall, althoughinterpretation for degree of involvement may differ between readers, theradiologic appearance is similar to 3 months prior when remeasuredsimilarly. Unremarkable appearance of the rest of the pancreas. Thestented common bile duct and expected upstream pneumobilia appear similar.There is an increasingly conspicuous poorly marginated peribiliaryedema-like signal involving the hepatic segment IVb on 8:71, perhapsrepresenting an element of focal cholangitic change. There is slightlymore focal hypoattenuation along the anterolateral subcapsular margin in this region measuring 22 mm on 8:68 that could potentially represent ametastasis, but again is more likely to represent focal cholangiticchange. There are no other convincingly suspicious discrete hepatic focallesions. Calcified splenic granulomata. Unremarkable adrenal glands, andkidneys aside from a large simple lateral lower polar renal corticalcyst. GI Tract/Mesentery/Peritoneum: No evidence of GI tract obstruction,perforation, or obvious focal inflammation. No suspicious sizablemesenteric/peritoneal masses. Unremarkable appendix. Pelvic Viscera: Enlarged prostate. Some smooth circumferential wallthickening of the urinary bladder which may be postobstructive but couldalso quite likely be due to underdistention. Lymph Nodes/Vasculature: No convincingly suspicious adenopathy by CT sizecriteria.. Peripancreatic vasculature as described above. Moderateaortoiliac calcific atherosclerosis without aneurysmal change. Free Fluid: Small volume pelvic ascites that is similar to 3 months prior. Musculoskeletal and Body Wall: No clearly aggressive lytic/blastic osseouslesions or body wall soft tissue masses. Moderate sacroiliac degenerativechange. A well marginated lucency within the right posterior ilium islikely benign, perhaps a cyst or island of benign yellow marrow. IMPRESSION: Chest: Partial resolution of the previously described new left basilarpulmonary nodule. Stable right middle lobe pulmonary nodule. Abdomen/Pelvis: No definite evidence of disease progression. There isincreasingly conspicuous peribiliary hypoenhancement/edema-like appearancewithin hepatic segment IVb that could represent a degree of cholangitis.Please correlate with labs. This confounds evaluation for metastaticdisease in this segment. If there is clinical/biochemical concern forprogression, can consider MRI for better evaluation. Grossly stable appearance of the pancreatic uncinate process mass withsimilar contiguous vascular involvement. CRITICAL RESULT: No. COMMUNICATION: Per this written report. Drafted by Brittany Duncan MD on 05/02/2025 12:29 PM Final report signed by Brittany Duncan MD on 05/02/2025 1:59 PM us Laura Maher MD IMG CT PROCEDURES Final Re sult * CT Chest w IV Contrast (05/02/2025 11:20 AM EDT) Anatomical Region Laterality Modality Chest Computed Tomogra phy Impressions 05/02/2025 1:59 PM EDT Chest: Partial resolution of the previously described new left basilar pulmonary nodule. Stable right middle lobe pulmonary nodule. Abdomen/Pelvis: No definite evidence of disease progression. There is increasingly conspicuous peribiliary hypoenhancement/edema-like appearance within hepatic segment IVb that could represent a degree of cholangitis. Please correlate with labs. This confounds evaluation for metastatic disease in this segment. If there is clinical/biochemical concern for progression, can consider MRI for better evaluation. Grossly stable appearance of the pancreatic uncinate process mass with similar contiguous vascular involvement. CRITICAL RESULT: No. COMMUNICATION: Per this written report. Drafted by Brittany Duncan MD on 05/02/2025 12:29 PM Final report signed by Brittany Duncan MD on 05/02/2025 1:59 PM Narrative 05/02/2025 1:59 PM EDT CLINICAL INDICATION: Pancreatic cancer post 6 months chemo adn chemo rt, treatment response TECHNIQUE: Multiple axial CT images were obtained from thoracic inlet through pubic symphysis following administration of IV contrast, Omnipaque 300, 100 mL. Reformatted images in the coronal and sagittal planes were generated from the axial data set to facilitate diagnostic accuracy. Total DLP (Dose-Length Product): 943.82 mGy.cm (accession [id number]), 943.82 mGy.cm (accession [id number]) Please note: The reported value represents the total of one or more individual components during the CT acquisition on this date and at this time, and as such, the same value may appear in more than one CT report depending on the interpreting/reporting physicians. COMPARISON: F-18 FDG PET/CT 02/17/2025 [address]s 02/22/2025 FINDINGS: Chest: Lymph Nodes and Mediastinum: No suspicious new or enlarging adenopathy. Few prominently enhancing but subcentimeter mediastinal lymph nodes are grossly unchanged in size and distribution. Unremarkable thyroid. Cardiovascular: Ectatic ascending thoracic aorta. Normal caliber heart. No central pulmonary emboli. No pericardial effusion. Right chest wall Port-A-Cath with tip terminating within the mid to inferior SVC. Lungs and Pleura: Interval partial resolution of the previously described new left basilar pulmonary nodule on 4:277, now subsolid in composition. Unchanged 9 mm right middle lobe nodule on 4:217. Few additional subcentimeter nodules are also grossly unchanged in appearance. No suspicious new or enlarging sizable pulmonary nodules. No suspicious enhancing pleural nodularity or pleural effusions. Musculoskeletal and Body Wall: No aggressive lytic/blastic osseous lesions or chest wall soft tissue masses. Moderate bilateral shoulder osteoarthrosis with subchondral cystic change involving the inferolateral left glenoid on 4:50. Abdomen/Pelvis: Solid Abdominal Organs: No significant change in appearance of the poorly marginated medial uncinate process lesion on 8:96 with similar associated contiguous soft tissue rind about the SMA and celiac axes. There is up to 160 degree of abutment of the SMA without caliber narrowing. 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 There is less than 90 degrees abutment of the SMV and celiac axis. Overall, although interpretation for degree of involvement may differ between readers, the radiologic appearance is similar to 3 months prior when remeasured similarly. Unremarkable appearance of the rest of the pancreas. The stented common bile duct and expected upstream pneumobilia appear similar. There is an increasingly conspicuous poorly marginated peribiliary edema-like signal involving the hepatic segment IVb on 8:71, perhaps representing an element of focal cholangitic change. There is slightly more focal hypoattenuation along the anterolateral subcapsular margin in this region measuring 22 mm on 8:68 that could potentially represent a metastasis, but again is more likely to represent focal cholangitic change. There are no other convincingly suspicious discrete hepatic focal lesions. Calcified splenic granulomata. Unremarkable adrenal glands, and kidneys aside from a large simple lateral lower polar renal cortical cyst. GI Tract/Mesentery/Peritoneum: No evidence of GI tract obstruction, perforation, or obvious focal inflammation. No suspicious sizable mesenteric/peritoneal masses. Unremarkable appendix. Pelvic Viscera: Enlarged prostate. Some smooth circumferential wall thickening of the urinary bladder which may be postobstructive but could also quite likely be due to underdistention. Lymph Nodes/Vasculature: No convincingly suspicious adenopathy by CT size criteria.. Peripancreatic vasculature as described above. Moderate aortoiliac calcific atherosclerosis without aneurysmal change. Free Fluid: Small volume pelvic ascites that is similar to 3 months prior. Musculoskeletal and Body Wall: No clearly aggressive lytic/blastic osseous lesions or body wall soft tissue masses. Moderate sacroiliac degenerative change. A well marginated lucency within the right posterior ilium is likely benign, perhaps a cyst or island of benign yellow marrow. Procedure Note Brittany Duncan MD - 05/02/2025 CLINICAL INDICATION: Pancreatic cancer post 6 months chemo adn chemo rt, treatment response TECHNIQUE: Multiple axial CT images were obtained from thoracic inlet through pubicsymphysis following administration of IV contrast, Omnipaque 300, 100 mL.Reformatted images in the coronal and sagittal planes were generated fromthe axial data set to facilitate diagnostic accuracy. Total DLP (Dose-Length Product): 943.82 mGy.cm (accession [id number]),943.82 mGy.cm (accession [id number]) Please note: The reported valuerepresents the total of one or more individual components during the CTacquisition on this date and at this time, and as such, the same value mayappear in more than one CT report depending on the interpreting/reportingphysicians. COMPARISON: F-18 FDG PET/CT 02/17/20[address] 02/22/2025 FINDINGS: Chest: Lymph Nodes and Mediastinum: No suspicious new or enlarging adenopathy.Few prominently enhancing but subcentimeter mediastinal lymph nodes aregrossly unchanged in size and distribution. Unremarkable thyroid. Cardiovascular: Ectatic ascending thoracic aorta. Normal caliber heart. Nocentral pulmonary emboli. No pericardial effusion. Right chest [id number]-M-Mdjo with tip terminating within the mid to inferior SVC. Lungs and Pleura: Interval partial resolution of the previously describednew left basilar pulmonary nodule on 4:277, now subsolid in composition.Unchanged 9 mm right middle lobe nodule on 4:217. Few additionalsubcentimeter nodules are also grossly unchanged in appearance. Nosuspicious new or enlarging sizable pulmonary nodules. No suspiciousenhancing pleural nodularity or pleural effusions. Musculoskeletal and Body Wall: No aggressive lytic/blastic osseous lesionsor chest wall soft tissue masses. Moderate bilateral shoulderosteoarthrosis with subchondral cystic change involving the inferolateralleft glenoid on 4:50. Abdomen/Pelvis: Solid Abdominal Organs: No significant change in appearance of the poorlymarginated medial uncinate process lesion on 8:96 with similar associatedcontiguous soft tissue rind about the SMA and celiac axes. There is up to160 degree of abutment of the SMA without caliber narrowing. There gx92-255 degree posterior abutment of the main portal vein. There is lessthan 90 degrees abutment of the SMV and celiac axis. Overall, althoughinterpretation for degree of involvement may differ between readers, theradiologic appearance is similar to 3 months prior when remeasuredsimilarly. Unremarkable appearance of the rest of the pancreas. Thestented common bile duct and expected upstream pneumobilia appear similar.There is an increasingly conspicuous poorly marginated peribiliaryedema-like signal involving the hepatic segment IVb on 8:71, perhapsrepresenting an element of focal cholangitic change. There is slightlymore focal hypoattenuation along the anterolateral subcapsular margin in this region measuring 22 mm on 8:68 that could potentially represent ametastasis, but again is more likely to represent focal cholangiticchange. There are no other convincingly suspicious discrete hepatic focallesions. Calcified splenic granulomata. Unremarkable adrenal glands, andkidneys aside from a large simple lateral lower polar renal corticalcyst. GI Tract/Mesentery/Peritoneum: No evidence of GI tract obstruction,perforation, or obvious focal inflammation. No suspicious sizablemesenteric/peritoneal masses. Unremarkable appendix. Pelvic Viscera: Enlarged prostate. Some smooth circumferential wallthickening of the urinary bladder which may be postobstructive but couldalso quite likely be due to underdistention. Lymph Nodes/Vasculature: No convincingly suspicious adenopathy by CT sizecriteria.. Peripancreatic vasculature as described above. Moderateaortoiliac calcific atherosclerosis without aneurysmal change. Free Fluid: Small volume pelvic ascites that is similar to 3 months prior. Musculoskeletal and Body Wall: No clearly aggressive lytic/blastic osseouslesions or body wall soft tissue masses. Moderate sacroiliac degenerativechange. A well marginated lucency within the right posterior ilium islikely benign, perhaps a cyst or island of benign yellow marrow. IMPRESSION: Chest: Partial resolution of the previously described new left basilarpulmonary nodule. Stable right middle lobe pulmonary nodule. Abdomen/Pelvis: No definite evidence of disease progression. There isincreasingly conspicuous peribiliary hypoenhancement/edema-like appearancewithin hepatic segment IVb that could represent a degree of cholangitis.Please correlate with labs. This confounds evaluation for metastaticdisease in this segment. If there is clinical/biochemical concern forprogression, can consider MRI for better evaluation. Grossly stable appearance of the pancreatic uncinate process mass withsimilar contiguous vascular involvement. CRITICAL RESULT: No. COMMUNICATION: Per this written report. Drafted by Brittany Duncan MD on 05/02/2025 12:29 PM Final report signed by Brittany Duncan MD on 05/02/2025 1:59 PM Laura Maher MD IMG CT PROCEDURES Final Re sult documented in this encounter Visit Diagnoses Diagnosis Malignant neoplasm of head of pancreas (CMS/HCC) Malignant neoplasm of head of pancreas documented in this encounter Administered Medications Inactive Administered Medications - up to 3 most recent administrations Medication Order MAR Action Action Date Dose Rate Site heparin flush (porcine) 100 UNIT/ML injection 500 Units 500 Units, Intracatheter, Once as needed, 1 dose, Starting on Fri05/02/25 at 1125, Until Fri05/02/25 at 1120, Routine, Intraprocedure, line care Given 05/02/2025 11:20 AM EDT 500 Units iohexol (OMNIPaque) 350 MG/ML injection 100 mL 100 mL, Intravenous, Once in imaging, 1 dose, Starting on 6/2/25 at 1016, Until Fri05/02/25 at 1120, Routine, Imaging Protocol Orders Given 05/02/2025 11:20 AM EDT 100 mL iohexol (OMNIPaque) 9 MG/ML oral contrast 500 mL 500 mL, Oral, Once in imaging, 1 dose, Starting on Fri05/02/25 at 1016, Until Fri05/02/25 at 1020, Routine, Imaging Protocol Orders Given 05/02/2025 10:20 AM EDT 500 mL documented in this encounter Additional Health Concerns Assessment Noted Time PHQ-9 Depression Total Score: 0 10/19/20 10:40 AM EST A fall risk assessment has been complete d for the patient 04/26/2025 3:29 PM EDT A Body Mass Index follow-up plan has been documented for the patient 02/23/2025 1:24 PM EDT documented as of this encounter Care Teams Linter Tender Relationship Specialty Start Date End Date Ritchie Lopez MD [address] [place] [address] PCP - General 03/30/24 Laura Maher MD [address] [facility] [address] [place] [phone] Consulting Physician Medical Oncology 07/07/24 Isaac Webb MD [address] [facility] [address] [place] [phone] Service Attending Radiation Oncology 10/26/24 documented as of this encounter
--- OUTSIDE RECORDS SUMMARY | 2025-05-03 14:15 | XMS_ITS | Encounter Summary ---
Author Organization [facility] Address [address] [place] [address] Care Team Providers Care Dough Raiser Name Role Phone Ritchie Lopez MD Primary Care Provider [phone] Laura Maher MD Unavailable [phone] Isaac Webb MD Unavailable Reason for Visit * Episode Based Medications (Routine) - Authorized Specialty Diagnoses / Procedures Referred By Contac t Referred To Contact Diagnoses Pancreatic adenocarcinoma (CMS/HCC) Procedures Gemcitabine Weekly x 3 / Nab-Paclitaxel Weekly x 3 Every 28 Days Carly Gaxiola MD [address] [address] Phone: tel: fax: Carly Gaxiola MD [address] [address] Phone: tel: fax: Referral ID Status Reason Start Date Expiration Date V isits Requested Visits Authorized [id number] Authorized 03/28/2025 09/27/2026 1 29 Encounter Details Date Type Department Care Team (Latest Contact Info) Description 05/03/2025 2:15 PM EDT - 05/03/2025 11:59 PM EDT Hospital Encounter [facility] In[facility] [address] [place] [address] Pancreatic adenocarcinoma (CMS/HCC) (Primary Dx) Discharge Disposition: [...] place to sleep or slept in a retirement (including now)? No 04/02/2024 PHQ-9 Answer Date [...] drink first t cristy in the morning (EYE-CANDY SEPARATOR HARD) to steady your nerves or to get [...] Sign Reading Time Taken Comments Blood Pressure 139/75 05/03/2025 2:17 PM EDT Pulse 81 05/03/2025 2:17 PM EDT Temperature 37 C (98.6 F) 05/03/2025 2:17 PM EDT Respiratory Rate 16 05/03/2025 2:1 7 PM EDT Oxygen Saturation 97% 05/03/2025 2:17 PM EDT Inhaled Oxygen Concentration - - Weight 78.4 kg (172 lb 13.5 oz) 05/03/2025 2:17 PM EDT Height 172.7 cm (5' 8 ) 05/03/2025 2:17 PM EDT Body Mass Index 26.28 05/03/2025 2:17 PM EDT documented in this encounter Medications [...] mouth daily. 30 tablet 3 03/28/2025 pancrelipase, Fxl-Tykl-Xzqy, (Creon) [id number] units capsule delayed-release particles capsule Take 1 [...] as of this encounter Miscellaneous Notes * Addendum Note - Esau Cruz - 05/03/2025 2:30 PM EDTEncounter addended by: Esau Cruz on: 05/05/2025 2:28 PM Actions taken: Charge Capture section accepted documented in this encounter Plan of Treatment Upcoming Encounters Date Type Department Care Team (Late st Contact Info) Description 06/21/2025 2:00 PM EDT Office Visit [facility] [address] [place] [phone] Leatha Higgins, CHINCHILLA MACHINE OPERATOR [address] [place] [phone] 06/21/2025 3:30 PM EDT Appointment [facility] [address] [place] [phone] 09/13/2025 2:40 PM EDT Office Visit [facility] Medicine Specialties [address] [place] [phone] Douglas Schroeder, PA [address] [place] [address] documented as of this encounter Procedures Procedure Name Priority Date/Time Associated Diagnosis Comments CBC WITH AUTO DIFFERENTIAL Routine 05/03/2025 2:29 PM EDT Pancreatic adenocarcinoma (CMS/HCC) documented in this encounter Results * (ABNORMAL) CBC and differential (05/03/2025 2:29 PM EDT) WBC Count 6.50 3.70 - 10.30 10*3/uL LAB HEMATOLOGY METHOD 05/03/2025 3:16 PM EDT [facility] RBC Count 4.27(L) 4.60 - 6.10 10*6/uL LAB HEMATOLOGY METHOD 05/03/2025 3:16 PM EDT [facility] HGB 10.9(L) 13.7 - 17.5 g/dL LAB HEMATOLOGY METHOD 05/03/2025 3:16 PM EDT [facility] HCT 34.7(L) 40.0 - 51.0 % LAB HEMATOLOGY METHOD 05/03/2025 3:16 PM EDT [facility] Platelet Count 201 155 - 369 10*3/uL LAB HEMATOLOGY METHOD 05/03/2025 3:16 PM EDT [facility] MCV 81 79 - 98 fL LAB HEMATOLOGY METHOD 05/03/2025 3:16 PM EDT [facility] MCH 25.5(L) 26.0 - 32.0 pg LAB HEMATOLOGY METHOD 05/03/2025 3:16 PM EDT [facility] MCHC 31.4 30.7 - 35.5 g/dL LAB HEMATOLOGY METHOD 05/03/2025 3:16 PM EDT [facility] RDW 14.5 11.5 - 14.5 % LAB HEMATOLOGY METHOD 05/03/2025 3:16 PM EDT [facility] MPV 9.4 8.8 - 12.5 fL LAB HEMATOLOGY METHOD 05/03/2025 3:16 PM EDT [facility] nRBC 0.0 <=0.0 per 100 WBCs LAB HEMATOLOGY METHOD 05/03/2025 3:16 PM EDT [facility] Differential Type Automated LAB HEMATOLOGY METHOD 05/03/2025 3:16 PM EDT [facility] Neutrophils % 71 % LAB HEMATOLOGY METHOD 05/03/2025 3:16 PM EDT [facility] Lymphocytes % 13 % LAB HEMATOLOGY METHOD 05/03/2025 3:16 PM EDT [facility] Monocytes % 11 % LAB HEMATOLOGY METHOD 05/03/2025 3:16 PM EDT [facility] Eosinophils % 2 % LAB HEMATOLOGY METHOD 05/03/2025 3:16 PM EDT [facility] Basophils % 1 % LAB HEMATOLOGY METHOD 05/03/2025 3:16 PM EDT [facility] Immature Granulocytes % 2 % LAB HEMATOLOGY METHOD 05/03/2025 3:16 PM EDT [facility] Neutrophils Absolute 4.64 1.60 - 6.10 10*3/uL LAB HEMATOLOGY METHOD 05/03/2025 3:16 PM EDT [facility] Lymphocytes Absolute 0.82(L) 1.20 - 3.90 10*3/uL LAB HEMATOLOGY METHOD 05/03/2025 3:16 PM EDT [facility] Monocytes Absolute 0.71 0.30 - 0.90 10*3/uL LAB HEMATOLOGY METHOD 05/03/2025 3:16 PM EDT [facility] Eosinophils Absolute 0.15 0.00 - 0.50 10*3/uL LAB HEMATOLOGY METHOD 05/03/2025 3:16 PM EDT [facility] Basophils Absolute 0.06 0.00 - 0.10 10*3/uL LAB HEMATOLOGY METHOD 05/03/2025 3:16 PM EDT [facility] Immature Granulocytes Absolute 0.12(H) 0.00 - 0.06 10*3/uL LAB HEMATOLOGY METHOD 05/03/2025 3:16 PM EDT [facility] Blood Blood sample taken from central line / Unknown (Central Line) Existing Catheter / Unknown 05/03/2025 2:29 PM EDT 05/03/2025 2:35 PM EDT Narrative [facility] - 05/03/2025 3:16 PM EDT Therapeutic decision making should be based on absolute values, rather than percentages. Carly Harry MD LAB BLOOD ORDERABLES Fi nal Result [facility] [address] [id number] documented in this encounter Visit Diagnoses Diagnosis [...] refer to A14-065. Protect from light., On Fri05/03/25 at 1615, For 1 dose, UndilutedIndications:Pancrea tic adenocarcinoma (CMS/HCC) New Bag 05/03/2025 4:03 PM EDT 200 mg 120 mL/hr dexamethasone (Decadron) tablet 12 mg 12 mg, Oral, Once, 1 dose, On Fri05/03/25 at 1545, RoutineIndications:Pancreati c adenocarcinoma (CMS/HCC) Given 05/03/2025 3:22 PM EDT 12 mg gemcitabine (Gemzar) 1,900 mg in sodium chloride 0.9 % 100 mL IVPB 1,900 mg (1,000 mg/m2 1.9 m2 Treatment Plan BSA from Recorded weight), Intravenous, at 359.9 mL/hr, Administer over 30 Minutes, Once, Hazardous Drug-Tier 1 Precautions. Dispose in BLACK Hazardous Waste Container. Chemotherapy: refer to A14-065., On Fri05/03/25 at 1645, For 1 dose, NS 100 mLIndications:Pancreatic adenocarcinoma (CMS/HCC) New Bag 05/03/2025 4:30 PM EDT 1,900 mg 359.9 mL/hr documented in this encounter Additional Health Concerns Assessment Noted Time PHQ-9 Depression Total Score: 0 10/19/20 24 10:40 AM EST A fall risk assessment has been complete d for the patient 05/03/2025 2:17 PM EDT A Body Mass Index follow-up plan has been documented for the patient 02/23/2025 1:24 PM EDT documented as of this encounter Care Teams Dough Raiser Relationship Specialty Start Date End Date Ritchie Lopez MD [address] [place], [place] [phone] PCP - General 03/30/24 Laura Maher MD [address] [facility] [address] [place] [address] Consulting Physician Medical Oncology 07/07/24 Isaac Webb MD [address] [facility] [address] [place] [phone] Service Attending Radiation Oncology 10/26/24 documented as of this encounter
--- OUTSIDE RECORDS SUMMARY | 2025-05-13 06:58 | XMS_ITS | Continuity of Care Document ---
Author Organization [facility] Phone Care Team Providers Care Gauge And Instrument Inspector Name Role Phone LARY JENKINS Admitting LARY JENKINS Unavailable RAVI DUFF Primary Care LARY JENKINS Primary Attending ALLERGIES AND ADVERSE REACTIONS ALLERGIES AND ADVERSE REACTIONS Code System Allergy Substance Adverse Reaction Date Reaction (Severity) Comment Status Reported By Updated By No Known Allergies [id number] on January 22, 2022 3:18:36 PM [facility] FAMILY HISTORY RELATION: Father Status: Cause of : Old-age Age at : 93 SNOMED-CT Diagnosis Age At Onset Information not available RELATION: Mother Status: Cause of : Old-age Age at : 92 SNOMED-CT Diagnosis Age At Onset Information not available RESULTS Patient: TERA JUNIOR Date of : September [birth year] LABORATORY RESULTS Information is not available LABORATORY NARRATIVE RESULTS Information is not available RADIOLOGY RESULTS ORDER 100: CHEST PA AND LAT (LOINC: [id number]) ORDER DATE: May 11, 2025 3:21:00 PM [facility] PERFORMING LAB: [address] [id number] Final Result Date: May 11, 2025 3:30:[address] [place] [address] Name: JONATHAN HALEY Exam Date: 05/11/2025 : 1950 Age 74 years Gender: M Physician: LARY JENKINS Facility: [facility] Facility HSV: Outpatient Exam: CHEST PA & LAT Chest X Ray: 3 Views including PA and lateral chest CLINICAL INDICATION: Male, 74 years old. Pancreatic cancer COMPARISON: January 17, 2022 Findings: Trachea and mediastinum are midline. Cardiac silhouette is within normal limits. There is no focal lung consolidation or effusion. Right Mediport is noted in place. Impression: Lungs are clear. Electronically signed by: Lukas Martin MD 05/12/2025 02:39 PM EDT Dictated By: LUKAS MARTIN Transcribed By: Transcribed On: 05/11/2025 11:30 AM Electronically signed by: LUKAS MARTIN 05/11/2025 Thank you for referring JONATHAN HALEY to [facility]. Legally authenticated by MARIO GAYTAN MD 2025-05-11 11:30:46 PATHOLOGY NARRATIVE RESULTS Information is not available MICROBIOLOGY RESULTS No Micro Labs/Results Exist for Patient BLOOD ADMIN RESULTS Information is not available MEDICATIONS HOME MEDICATIONS Status RXNORM NDC Medication Dose Route Frequency Dates Comments Reported By Updated By Drug Treatment Unknown DISCHARGE MEDICATIONS Status RXNORM NDC Medication Dose Route Frequency Dates Comments Physician Updated By No Discharge Medication Info rmation Available INPATIENT MEDICATIONS Status RXNORM NDC Medication Dose Route Frequency Rat e Quantity Dates Comments Physician Updated By No Inpatient Medication Info rmation Available SOCIAL HISTORY SOCIAL HISTORY SNOMED-CT Social History Element Description Effective Dates Offered Cessation Comment UpdatedBy [id number] Historical Tobacco smoking status Former Smoker Not Applicable PT STATES THAT HE QUIT SMOKING 30 YEARS AGO. [id number] on January 18, 2022 2:04:14 PM [facility] SOCIAL HISTORY - Gender Sex: Male SOCIAL HISTORY - Status : status i nformation is not available Intention in Next Year: intention information is not available SOCIAL HISTORY - Sexual Behavior Sexual Orientation Gender Identity SNOMED-CT Description SNO MED -CT Description Activity Level No of Partners Partner Type UpdatedBy Information is not available HEALTH CONCERNS Problems Concern Status Health Concern problem infor mation not available. Smoking Status Status Years Used Consumed packs p er day Health Concern smoking histo ry information not available. Family History Concern Status Health Concern family histor y information not available. ENCOUNTERS ENCOUNTER INFORMATION Reason for Visit C25.9 Admission May 11, 2025 3:12:[address] [address] Discharge May 11, 2025 3:12:00 PM [facility] DIS CHARGED TO HOME OR SELF CARE ENCOUNTER DIAGNOSES Notes information is not oc ilable. Code System Diagnosis Onset Date Diagnosis information is not available. ABSTRACT DIAGNOSES Code System Diagnosis Updated By C25.9 ICD10 MALIGNANT NEOPLA SM OF PANCREAS, UNSPECIFIED [id number] on May 13, 2025 10:57:18 AM [place] Z88.8 ICD10 ALLERGY STATUS T O OTHER DRUGS, MEDICAMENTS AND BIOLOGICAL SUBSTANCES [id number] on May 13, 2025 10:57:18 AM [facility] C25.9 ICD10 MALIGNANT NEOPLA SM OF PANCREAS, UNSPECIFIED [id number] on May 13, 2025 10:57:18 AM [facility] Z88.8 ICD10 ALLERGY STATUS T O OTHER DRUGS, MEDICAMENTS AND BIOLOGICAL SUBSTANCES [id number] on May 13, 2025 10:57:18 AM [facility] CARE TEAM Care Gauge And Instrument Inspector Role LARY JENKINS Admitting LARY JENKINS Referring RAVI CROMONA Primary Care LARY JENKINS Primary Attending CARE TEAM CARE penciller Role on Team Status Start Date End Date Update d By ALICE BRADFORD MD Referring normal May 11, 2025 4:00:00 AM [facility] May 11, 2025 3:12:00 PM UTC [id number] on May 11, 2025 5:41:18 PM [facility] ALICE BRADFORD MD Attending normal May 11, 2025 4:00:00 AM UT May 11, 2025 3:12:00 PM UTC [id number] on May 11, 2025 5:41:18 PM [facility] ALICE BRADFORD MD Admitting normal May 11, 2025 4:00:00 AM [facility] May 11, 2025 3:12:00 PM UTC [id number] on May 11, 2025 5:41:18 PM UTC UNDEFINED PROVIDER PHY Referring normal May 11, 2025 4:00:00 AM UT May 11, 2025 4:00:00 AM UTC [id number] on May 11, 2025 5:41:18 PM UTC UNDEFINED PROVIDER PHY Attending normal May 11, 2025 4:00:00 AM UT May 11, 2025 4:00:00 AM UTC [id number] on May 11, 2025 5:41:18 PM UTC UNDEFINED PROVIDER PHY Admitting normal May 11, 2025 4:00:00 AM UT May 11, 2025 4:00:00 AM UTC [id number] on May 11, 2025 5:41:18 PM UT OMEGA RODRIGUES MD PHY PCP normal May 11, 025 4:00:00 AM UTC May 11, 2025 3:12:00 PM UTC [id number] on May 11, 2025 5:41:18 PM UT ALICE OCASIO Referring normal May 11, 2025 4:00:00 AM UTC May 11, 2025 4:00:00 AM UT [id number] on May 11, 2025 5:41:18 PM [facility] ALICE OCASIO Attending normal May 11, 2025 4:00:00 AM UT May 11, 2025 4:00:00 AM UTC [id number] on May 11, 2025 5:41:18 PM UT ALICE OCASIO Admitting normal May 11, 2025 4:00:00 AM UT May 11, 2025 4:00:00 AM UTC [id number] on May 11, 2025 5:41:18 PM UT
--- OUTSIDE RECORDS SUMMARY | 2025-05-23 07:12 | XMS_ITS | Encounter Summary ---
Author Organization [facility] Address [address] [place] [address] Care Team Providers Care Medical Driver Name Role Phone Ritchie Lopez MD Primary Care Provider [phone] Laura Maher MD Unavailable [phone] Isaac Webb MD Unavailable Reason for Visit * Imaging (Routine) - Closed Specialty Diagnoses / Procedures Referred By Contac t Referred To Contact Radiology Diagnoses Pancreatic adenocarcinoma (CMS/HCC) Procedures PET/CT FDG Skull Base To Mid Thigh Carly Gaxiola MD [address] [address] Phone: tel: fax: Referral ID Status Reason Start Date Expiration Date Visits Re quested Visits Authorized [id number] Closed 04/26/2025 10/26/2026 2 2 Encounter Details Date Type Department Care Team (Latest Contact Info) Description 05/23/2025 7:12 AM EDT - 05/23/2025 11:59 PM EDT Hospital Encounter [facility] PET Scan [address] [place] [phone] Discharge Disposition: Home or Self Care Social [...] Date Recorded Patient Health Questionnaire-2 Score 0 05/24/2025 Hunger Vital Sign Answer Date Recorded Within the past 12 months, y ou worried that your food would run out before you got the money to buy more. Never true 04/02/20 Within the past 12 months, t he [...] drink first t cristy in the morning (EYE-HYDROTREATER OPERATOR) to steady your nerves or to get rid of a hangover? 0 04/02/2024 CAGE Questionnaire Score 0 024 Utilities Answer Date Recorded In the past 12 months has th e [employer], [employer], [employer], or water [employer] threatened to shut off services in your [...] mouth daily. 30 tablet 3 03/28/2025 pancrelipase, Kfe-Bdxn-Dhbi, (Creon) [id number] units capsule delayed-release particles capsule Take 1 [...] Description 06/21/2025 2:00 PM EDT Office Visit [facility] Multidisciplinary Oncology Clinic [address] [place] [phone] Leatha Higgins APRN [address] [facility] [address] [place] [address] 06/21/2025 3:30 PM EDT Appointment [facility] Infusion Clinic [address] [place] [address] 09/13/2025 2:40 PM EDT Office Visit [facility] Medicine Specialties [address] [place] [address] Douglas Schroeder PA [address] [place] [address] documented as of this encounter Procedures Procedure Name Priority Date/Time Associated Diagnosis Comments PET/CT FDG SKULL BASE TO MID THIGH Routine 05/23/2025 8:33 AM EDT Pancreatic adenocarcinoma (CMS/HCC) documented in this encounter Results * PET/CT FDG Skull Base To Mid [...] applicable. Positioning: Arms raised. PET/CT scanner: Siemens Biograph 40 mCT. PET/CT acquisition: Taiiyo-tj-tec-thighs. Standardized uptake value (SUV): Corrected for body weight only. CT: Low-dose, [id number]-iwmw, without intravenous contrast. TOTAL DLP (Dose Length [...] applicable. Positioning: Arms raised. PET/CT scanner: Siemens Biograph 40 mCT. PET/CT acquisition: Jleqsk-fh-pnl-thighs. Standardized uptake value (SUV): Corrected for body weight only. CT: Low-dose, [id number]-[id number], without intravenous contrast. TOTAL DLP (Dose Length [...] Singh MD on 05/23/2025 2:25 PM Carly Haryr MD IMG NM PROCEDURES Final Result documented in this encounter Visit Diagnoses Not on filedocumented in this encounter Additional Health Concerns Assessment Noted Time PHQ-9 Depression Total Score: 0 10/19/20 10:40 AM EST A fall risk assessment has been complete d for the patient 05/03/2025 2:17 PM EDT A Body Mass Index follow-up plan has been documented for the patient 02/23/2025 1:24 PM EDT documented as of this encounter Care Teams Medical Driver Relationship Specialty Start Date End Date Ritchie Lopez MD [address] [place], [place] [id number] PCP - General 03/30/24 Laura Maher MD [address] [facility] [address] [place] [address] Consulting Physician Medical Oncology 07/07/24 Isaac Webb MD [address] [facility] [address] [place] [address] Service Attending Radiation Oncology 10/26/24 documented as of this encounter
--- OUTSIDE RECORDS SUMMARY | 2025-05-23 07:12 | XMS_ITS | Encounter Summary ---
Author Organization [facility] Address [address] [place] [address] Care Team Providers Care Glass Blowing Instructor Name Role Phone Ritchie Lopez MD Primary Care Provider [phone] Laura Maher MD Unavailable [phone] Isaac Webb MD Unavailable Reason for Referral * Imaging (Routine) - Closed Specialty Diagnoses / Procedures Referred By Elida melendez Referred To Contact Radiology Diagnoses Pancreatic adenocarcinoma (CMS/HCC) Procedures PET/CT FDG Skull Base To Mid Thigh Carly Gaxiola MD [address] [address] Phone: tel: fax: Referral ID Status Reason Start Date Expiration Date Visits Re quested Visits Authorized [id number] Closed 04/26/2025 10/26/2026 2 2 Reason for Visit * Imaging (Routine) - Closed Specialty Diagnoses / Procedures Referred By Elida melendez Referred To Contact Radiology Diagnoses Pancreatic adenocarcinoma (CMS/HCC) Procedures PET/CT FDG Skull Base To Mid Thigh Carly Gaxiola MD [address] [address] Phone: tel: fax: Referral ID Status Reason Start Date Expiration Date Visits Re quested Visits Authorized [id number] Closed 04/26/2025 10/26/2026 2 2 Encounter Details Date Type Department Care Team (Latest Contact Info) Description 05/23/2025 7:12 AM EDT - 05/23/2025 11:59 PM EDT Hospital Encounter [facility] PET Scan [address] [place] [address] Pancreatic adenocarcinoma (CMS/HCC) Discharge Disposition: Home or Self Care [...] place to sleep or slept in a correction (including now)? 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 30 tablet 3 03/28/2025 pancrelipase, Llh-Javs-Dhhe, (Creon) [address]36-[address] units capsule delayed-release particles capsule Take 1 [...] Office Visit [facility] [address] [place] [address] Leatha Higgins, DIRECTOR OF ANALYTICAL DEVELOPMENT 800 [facility] [address] [place] [address] 06/21/2025 3:30 PM EDT Appointment [facility] [address] [place] [phone] 09/13/2025 2:40 PM EDT Office Visit [facility] [address] [place] [address] Douglas Schroeder, PA [address] [place] [address] documented as of this encounter Procedures Procedure [...] scanner: Siemens Biograph 40 mCT. PET/CT acquisition: Fdqnud-su-jxe-thighs. Standardized uptake value (SUV): Corrected for body weight only. CT: Low-dose, [id number], without intravenous contrast. TOTAL DLP (Dose Length [...] scanner: Siemens Biograph 40 mCT. PET/CT acquisition: Ebwlsa-jh-sec-thighs. Standardized uptake value (SUV): Corrected for body weight only. CT: Low-dose, [id number]-[id number], without intravenous contrast. TOTAL DLP (Dose Length [...] signing this report, I, the attending physician, uriel I have personally reviewed the images/data for the aboveexamination(s) and agree with the final edited report. Drafted by Cheng Brown D.O. on 05/23/2025 10:57 AM Final report signed by Ravinder Singh MD on 05/23/2025 2:25 PM Carly Harry MD IMG NM PROCEDURES Final Result documented in this encounter Visit Diagnoses Diagnosis Pancreatic adenocarcinoma (CMS/HCC) Malignant neoplasm of pancreas, part unspecified documented in this encounter Administered Medications Inactive Administered Medications - up to 3 most recent administrations Medication Order MAR Action Action Date Dose Rate Site Fludeoxyglucose F 18 (FDG 18) radio-isotope injection 10 millicurie 10 millicurie, Intravenous, Once, 1 dose, On 05/23/25 at 0845, Routine, Imaging NM Protocol Orders Given 05/23/2025 7:30 AM EDT 12.8 millicuries Left Antecubital documented in this encounter Additional Health Concerns Assessment Noted Time PHQ-9 Depression Total Score: 0 10/19/20 10:40 AM EST A fall risk assessment has been complete d for the patient 05/03/2025 2:17 PM EDT A Body Mass Index follow-up plan has been documented for the patient 02/23/2025 1:24 PM EDT documented as of this encounter Care Teams Glass Blowing Instructor Relationship Specialty Start Date End Date Ritchie Lopez MD [address] [place] [address] PCP - General 03/30/24 Laura Maher MD [address] [facility] [address] [place] [address] Consulting Physician Medical Oncology 07/07/24 Isaac Webb MD 800 [facility] [address] [place] [phone] Service Attending Radiation Oncology 10/26/24 documented as of this encounter
--- OUTSIDE RECORDS SUMMARY | 2025-05-24 12:30 | XMS_ITS | Encounter Summary ---
Author Organization [facility] Address [address] [place] [address] Care Team Providers Care Snath Handle Assembler Name Role Phone Ritchie Lopez MD Primary Care Provider [phone] Laura Maher MD Unavailable [phone] Isaac Webb MD Unavailable Encounter Details Date Type Department Care Team (Latest Contact Info) Description 05/24/2025 12:30 PM EDT Clinical Support [facility] Multidisciplinary Oncology Clinic [address] [place] [address] Pancreatic adenocarcinoma (CMS/HCC) Social History Tobacco Use [...] place to sleep or slept in a skilled nursing (including now)? 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 documented in this encounter Plan of Treatment Upcoming Encounters Date Type Department Care Team (Late st Contact Info) Description 06/21/2025 2:00 PM EDT Office Visit [facility] Multidisciplinary Oncology Clinic [address] [place] [phone] Leatha Higgins, DIRECTOR OF ENVIRONMENTAL SERVICES 800 [facility] [address] [place] [address] 06/21/2025 3:30 PM EDT Appointment [facility] Infusion Clinic [address] [place] [address] 09/13/2025 2:40 PM EDT Office Visit [facility] [address] [place] [address] Douglas Schroeder PA [address] [place] [phone] documented as of this encounter Procedures Procedure Name Priority Date/Time Associated Diagnosis Comments CANCER ANTIGEN, GI (CA 19.9) Routine 05/24/2025 12:01 PM EDT Pancreatic adenocarcinoma (CMS/HCC) CBC WITH AUTO DIFFERENTIAL Routine 05/24/2025 12:01 PM EDT Pancreatic adenocarcinoma (CMS/HCC) COMPREHENSIVE METABOLIC PANEL, PLASMA Routine 05/24/2025 12:01 PM EDT Pancreatic adenocarcinoma (CMS/HCC) documented in this encounter Results * (ABNORMAL) CBC and differential (05/24/2025 12:01 PM EDT) WBC Count 9.38 3.70 - 10.30 10*3/uL LAB HEMATOLOGY METHOD 05/24/2025 12:10 PM EDT [facility] RBC Count 4.51(L) 4.60 - 6.10 10*6/uL LAB HEMATOLOGY METHOD 05/24/2025 12:10 PM EDT [facility] HGB 11.2(L) 13.7 - 17.5 g/dL LAB HEMATOLOGY METHOD 05/24/2025 12:10 PM EDT [facility] HCT 36.2(L) 40.0 - 51.0 % LAB HEMATOLOGY METHOD 05/24/2025 12:10 PM EDT [facility] Platelet Count 351 155 - 369 10*3/uL LAB HEMATOLOGY METHOD 05/24/2025 12:10 PM EDT [facility] MCV 80 79 - 98 fL LAB HEMATOLOGY METHOD 05/24/2025 12:10 PM EDT [facility] MCH 24.8(L) 26.0 - 32.0 pg LAB HEMATOLOGY METHOD 05/24/2025 12:10 PM EDT [facility] MCHC 30.9 30.7 - 35.5 g/dL LAB HEMATOLOGY METHOD 05/24/2025 12:10 PM EDT [facility] RDW 17.2(H) 11.5 - 14.5 % LAB HEMATOLOGY METHOD 05/24/2025 12:10 PM EDT [facility] MPV 8.2(L) 8.8 - 12.5 fL LAB HEMATOLOGY METHOD 05/24/2025 12:10 PM EDT [facility] nRBC 0.0 <=0.0 per 100 WBCs LAB HEMATOLOGY METHOD 05/24/2025 12:10 PM EDT [facility] Differential Type Automated LAB HEMATOLOGY METHOD 05/24/2025 12:10 PM EDT [facility] Neutrophils % 68 % LAB HEMATOLOGY METHOD 05/24/2025 12:10 PM EDT [facility] Lymphocytes % 13 % LAB HEMATOLOGY METHOD 05/24/2025 12:10 PM EDT [facility] Monocytes % 13 % LAB HEMATOLOGY METHOD 05/24/2025 12:10 PM EDT [facility] Eosinophils % 3 % LAB HEMATOLOGY METHOD 05/24/2025 12:10 PM EDT [facility] Basophils % 1 % LAB HEMATOLOGY METHOD 05/24/2025 12:10 PM EDT [facility] Immature Granulocytes % 2 % LAB HEMATOLOGY METHOD 05/24/2025 12:10 PM EDT [facility] Neutrophils Absolute 6.43(H) 1.60 - 6.10 10*3/uL LAB HEMATOLOGY METHOD 05/24/2025 12:10 PM EDT [facility] Lymphocytes Absolute 1.24 1.20 - 3.90 10*3/uL LAB HEMATOLOGY METHOD 05/24/2025 12:10 PM EDT [facility] Monocytes Absolute 1.26(H) 0.30 - 0.90 10*3/uL LAB HEMATOLOGY METHOD 05/24/2025 12:10 PM EDT [facility] Eosinophils Absolute 0.25 0.00 - 0.50 10*3/uL LAB HEMATOLOGY METHOD 05/24/2025 12:10 PM EDT [facility] Basophils Absolute 0.06 0.00 - 0.10 10*3/uL LAB HEMATOLOGY METHOD 05/24/2025 12:10 PM EDT [facility] Immature Granulocytes Absolute 0.14(H) 0.00 - 0.06 10*3/uL LAB HEMATOLOGY METHOD 05/24/2025 12:10 PM EDT [facility] Blood Venous blood specimen / Unknown (Central Line) Existing Catheter / Unknown 05/24/2025 12:01 PM EDT 05/24/2025 12:08 PM EDT [facility] - 05/24/2025 12:10 PM EDT Therapeutic decision making should be based on absolute values, rather than percentages. Carly Harry MD LAB BLOOD ORDERABLES Fi nal Result [facility] [address] [place] [address] * (ABNORMAL) Comprehensive metabolic panel (05/24/2025 12:01 PM EDT) Glucose, Plasma 105(H) 74 - 99 mg/dL 05/24/2025 12:46 PM EDT [facility] BUN, Plasma 14 8 - 23 mg/dL 05/24/2025 12:46 PM EDT [facility] Creatinine, Plasma 0.66(L) 0.70 - 1.20 mg/dL 05/24/2025 12:46 PM EDT [facility] BUN/Creatinine Ratio 21 05/24/2025 12:46 PM EDT [facility] Sodium, Plasma 141 136 - 145 mmol/L 05/24/2025 12:46 PM EDT [facility] Potassium, Plasma 4.9 3.6 - 4.9 mmol/L 05/24/2025 12:46 PM EDT [facility] Chloride, Plasma 108(H) 97 - 107 mmol/L 05/24/2025 12:46 PM EDT [facility] CO2, Plasma 23 22 - 29 mmol/L 05/24/2025 12:46 PM EDT [facility] Anion Gap 10 6 - 16 mmol/L 05/24/2025 12:46 PM EDT [facility] Total Calcium, Plasma 8.8(L) 8.9 - 10.2 mg/dL 05/24/2025 12:46 PM EDT [facility] Total Protein 6.7 6.3 - 7.9 g/dL 05/24/2025 12:46 PM EDT [facility] Albumin, Plasma 3.2(L) 3.5 - 5.2 g/dL 05/24/2025 12:46 PM EDT [facility] AST, Plasma 34 10 - 50 U/L 05/24/2025 12:46 PM EDT [facility] ALT, Plasma 27 10 - 50 U/L 05/24/2025 12:46 PM EDT [facility] Alkaline Phosphatase, Plasma 143(H) 40 - 115 U/L 05/24/2025 12:46 PM EDT [facility] Total Bilirubin, Plasma 0.4 0.2 - 1.1 mg/dL 05/24/2025 12:46 PM EDT [facility] eGFRcr 99.0 mL/min/1.7 3m*2 05/24/2025 12:46 PM EDT [facility] Comment:Reported eGFRcr in m L/min/1.73m2 is based the CKD-EPI 2020 equation that does not use a race coefficient. Blood Venous blood specimen / Unknown (Central Line) Existing Catheter / Unknown 05/24/2025 12:01 PM EDT 05/24/2025 12:15 PM EDT Carly Harry MD LAB BLOOD ORDERABLES Fi nal Result Performing Organization Address City/[facility]/ZIP Co de Phone Number [facility] [address] [place] [address] * (ABNORMAL) Cancer antigen 19-9 (05/24/2025 12:01 PM EDT) CA 19.9 127(H) <36 U/mL 05/24/2025 12:52 PM EDT [facility] Blood Venous blood specimen / Unknown (Central Line) Existing Catheter / Unknown 05/24/2025 12:01 PM EDT 05/24/2025 12:15 PM EDT Narrative [facility] - 05/24/2025 12:52 PM EDT Performed by Kiera electrochemiluminescent immunoassay. Results obtained with different test methods or kits cannot be used interchangeably. Carly Harry MD LAB BLOOD ORDERABLES Fi nal Result Performing Organization Address City/[facility]/ZIP Co de Phone Number [facility] [address] [place] [address] documented in this encounter Visit Diagnoses Diagnosis Pancreatic adenocarcinoma (CMS/HCC) Malignant neoplasm of pancreas, part unspecified documented in this encounter Additional Health Concerns Assessment Noted Time PHQ-9 Depression Total Score: 0 10/19/20 10:40 AM EST A fall risk assessment has been complete d for the patient 05/24/2025 2:06 PM EDT A Body Mass Index follow-up plan has been documented for the patient 02/23/2025 1:24 PM EDT documented as of this encounter Care Teams Snath Handle Assembler Relationship Specialty Start Date End Date Ritchie Lopez MD [address] [place] [address] PCP - General 03/30/24 Laura Maher MD [address] [facility] [address] [place] [phone] Consulting Physician Medical Oncology 07/07/24 Isaac Webb MD [address] [facility] [address] [place] [phone] Service Attending Radiation Oncology 10/26/24 documented as of this encounter
--- OUTSIDE RECORDS SUMMARY | 2025-05-24 13:00 | XMS_ITS | Encounter Summary ---
Author Organization [facility] Address [address] [place] [address] Care Team Providers Care Hunter Name Role Phone Ritchie Lopez MD Primary Care Provider [phone] Laura Maher MD Unavailable [phone] Isaac Webb MD Unavailable Reason for Visit * Reason Comments Follow-up Pancreatic Cancer Encounter Details Date Type Department Care Team (Late st Contact Info) Description 05/24/2025 1:00 PM EDT Office Visit [facility] Multidisciplinary Oncology Clinic [address] [place] [address] Carly Gaxiola MD 800 [facility] [address] [address] Pancreatic adenocarcinoma (CMS/HCC) (Primary Dx); Chemotherapy-induced neuropathy (CMS/HCC); Encounter for antineoplastic chemotherapy; Neoplastic (malignant) related fatigue; Chemotherapy-induced fatigue Social History Tobacco Use Types Packs/Day Years [...] place to sleep or slept in a senior living (including now)? 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) to steady your nerves or to [...] Sign Reading Time Taken Comments Blood Pressure 183/78 05/24/2025 1:15 PM EDT Pulse 73 05/24/2025 1:15 PM EDT Temperature 36.8 C (98.2 F) 05/24/2025 1:15 PM EDT Respiratory Rate 18 05/24/2025 1:15 PM EDT Oxygen Saturation 95% 05/24/2025 1:15 PM EDT Inhaled Oxygen Concentration - - Weight 78.4 kg (172 lb 13.5 oz) 05/24/2025 1:15 PM EDT Height 172.7 cm (5' 8 ) 05/24/2025 1:15 PM EDT Body Mass Index 26.28 05/24/2025 1:15 PM EDT documented in this encounter Functional [...] Assessment Author Thoughts that you would be better off or hurting yourself in some way Not at all 05/24/2025 1:17 PM EDT Marysol Hirsch documented as of this encounter Miscellaneous Notes * Clinician Note - Gisell Khan RN - 05/24/2025 1:00 PM EDT RN notified provider of inc BP, provider acknowledged - no concern as pt asymptomatic, requested ptto f/u with PCP for BP control. Pt left clinic before RN able to recheck. * Progress Notes - Danielle Hayes, PharmD - 05/24/2025 1:00 PM EDT Pharmacy Hematology/Oncology Treatment Note Winston Joya is a 74 y.o. male with mPDAC. Cancer Staging Pancreatic adenocarcinoma (CMS/HCC) Staging form: Pancreas, Exocrine AJCC 8th Edition - Clinical: Stage IIB (cT2, cN1, cM0) - Signed by Laura Maher MD on 04/16/2024 Study Patient: No Treatment Plan reviewed for Gemcitabine/Abraxane. [x] Follow-Up Clinical Review for Cycle 3 Patient History: 05/05/24: Mr. Joya presented to [...] chemoradiation. Per surgical oncology at [facility], recommend to resume chemotherapy. Abraxane dose reduced [...] Labs: Lab Results Component Value Date WBC 9.38 05/24/2025 NEUTROABS 6.43 (H) 05/24/2025 HGB 11.2 (L) 05/24/2025 PLT 351 05/24/2025 Lab Results Component Value Date GLUCOSE 105 (H) 05/24/2025 NA 141 05/24/2025 CL 108 (H) 05/24/2025 K 4.9 05/24/2025 MG 2.0 08/30/2024 BUN 14 05/24/2025 CREATININE 0.66 (L) 05/24/2025 Lab Results Component Value Date AST 34 05/24/2025 ALT 27 05/24/2025 ALKPHOS 143 (H) 05/24/2025 BILITOT 0.4 05/24/2025 Visit Vitals BP (!) 183/78 Pulse 73 Temp 36.8 ??C (98.2 ??F) Resp 18 Other Relevant Monitoring: Treatment/Therapy Plan: Gemcitabine 1000 mg/m2 (1900 mg) IV D1, D15 Abraxane 100 mg/m2 (200 mg) IV D1, D15 Every 28 days [x] Abraxane dose reduced 20% for predicted tolerability; D8 dropped with C2 d/t neuropathy/tolerability Current Treatment Plan History: [place]/Abraxane Cycle 1: 03/28/25, 04/04/25, 04/11/25 Cycle 2: 04/26, 05/03/25 Cycle 3: 05/24/25, 06/07/25 Prior Treatment History: [place]/Abraxane Cycle 1: 04/21, 04/29/24, 05/05/24 Cycle 2: 05/19/24, 05/26/24, 06/02/24 Cycle 3: 06/16/24, 06/23/24, 06/30/24 Cycle 4: 07/14/24, 07/21/24, 07/28/24 Cycle 5: 08/11, 08/18, 08/25/24 Cycle 6: 09/15, 10/29, 11/06/24 Capecitabine + XRT (12/2024 - 01/2025) Plan: Patient will return to clinic in 4 weeks. Will follow-up at that time. Pharmacist Attestation: Danielle Hayes PharmD, [facility] Hematology/Oncology Clinical Pharmacist * Progress Notes - Carly Gaxiola MD - 05/24/2025 1:00 PM EDT Patient Information Patient Name: Winston Joya Date of : 1950 REFERRING PHYSICIAN: No referring provider defined for this encounter. Encounter Date:05/25/25 Patient Care Team: Ritchie Lopez MD as PCP - Laura Hager MD as Consulting Physician (Medical Oncology) Isaac [...] clinic with daughter after last follow-up. Followed with outside surgical oncology follow-up at [facility]. W Overall he is tolerating gem Abraxane fairly well. Stable cold sensitivity and mild tingling. No more diarrhea, no more vomiting. No fevers or chills. History of Present Illness: Winston Joya is [...] up with Dr. Rollins at [facility]. Recommended continuing gem Abraxane. 05/18/2025-diagnostic laparoscopy with liver biopsy 05/23/2025-PET Slightly decreased FDG avidity in the region of the medial aspect of the uncinate process, likely representing favorable treatment response. There is increased FDG of the tracking along the CBD stentwhich is favored to be infectious or inflammatory in etiology. Continued attention on follow-up imaging recommended. No change in the previously noted pulmonary nodules which are similar in size and do not demonstrate FDG avidity. Persistent but decreased FDG avidity within the left aspect of the prostate, likely represent resolving focal prostatitis or BPH. Pancreatic adenocarcinoma (CMS/HCC) 04/16/2024 Initial Diagnosis Pancreatic [...] Therapy The patient saw No care steam blocker to display for radiation treatment. This is the current list ofradiation treatment: VMAT: Bilateral Pancreas (Resolved) Treatment Period Fraction Dose Fractions Total Dose Course IMRT QA 11/19/2024-11/19/2024 (days elapsed: 0) Plans Planned Pancreas 11/19/2024-11/19/2024 220 cGy 0 / 1 220 cGy Reference Points Delivered Verification 11/19/2024-11/19/2024 -- -- 0 cGy Course C1 11/25/2024-01/03/2025 (days elapsed: 39) Plans Planned Pancreas 11/25/2024-01/03/2025 220 cGy 25 / 25 5,500 cGy Reference Points Delivered Pancreas [...] Types: Cigarettes Quit date: 05/31/2003 Years since quittin.0 Passive exposure: Past Smokeless tobacco: Never Tobacco comments: Quit in 2002 Vaping Use Vaping status: Never Used Substance Use Topics Alcohol use: Never Drug use: Never Allergies and Adverse Drug Reactions Trazodone Medications Current Outpatient Medications: B-D UF III MINI PEN NEEDLES 31G X 5 MM [facility], , Disp: , Rfl: diclofenac (Voltaren) 1 [...] UNIT/ML injection pen, , Disp: , Rfl: insulin glargine (Lantus SoloStar, Basaglar) 100 UNIT/ML injection pen, Inject 20 Units under the skin every night., Disp: 15 mL, Rfl: 3 lisinopril 10 MG tablet, Take 1 tablet by mouth daily., Disp: 30 tablet, Rfl: 3 pancrelipase, Ibb-Acvp-Sscs, (Creon) [id number] units capsule delayed-release particles capsule, Take 1 capsule by mouth 3 (three) times a day with meals. (Patient not taking: Reported on 04/26/2025), Disp: 180 capsule, Rfl: 0 prochlorperazine (Compazine) 10 MG tablet, Take 1 tablet by mouth every 6 hours as needed for nausea or vomiting. (Patient not taking: Reported on 04/26/2025), Disp: 30 tablet, Rfl: 5 tamsulosin (Flomax) 0.4 MG 24 hr capsule, Take 1 capsule (0.4 mg) by mouth 1 (one) time each day with dinner., Disp: 30 capsule, Rfl: 11 No current facility-administered medications for this visit. Review of Systems: A 14 point ROS is obtained which is negative except as per HPI Objective Visit Vitals BP (!) 183/78 Pulse 73 Temp 36.8 ??C (98.2 ??F) Resp 18 Ht 1.727 m (5' 8 ) Wt 78.4 kg (172 lb 13.5 oz) SpO2 95% BMI 26.28 kg/m?? Smoking Status Former BSA 1.94 m?? Performance Status ECOG 1 GENERAL: Appears [...] Labs in last 18 hours CBC WBC ?? Hb ?? Plt ?? Hct ?? ANC ?? INR ??, PTT ??, Anti-Xa ?? BMP Na ?? Cl ?? BUN ?? Glu ?? K ?? Co2 ?? Cr ?? Ca ?? iCa ?? Mg ??, Phos ?? Lactate ?? LFT AST ?? AlkPhos ?? T Prot ?? ALK ?? Bili ?? Alb ?? D.Bili ?? Ca ?? iCa ?? Mg ?? Phos ?? Lactate [...] met with Surgical Oncology at [facility] to discuss nanoknife ablation. He recommended continuing gem Abraxane - CA 199 --> 8249--> 218 >>38.5 on 10/05/24--> uptrended to 91.2 on 02/22/25 --> still going up (230 on 04/26/25) but suspect less likely biochemical PD ISO recent chemo combination re-start. --Ambry genetic testing sent 05/26/24 given new diagnosis of pancreatic adenocarcinoma. No mutationsdetected. --Requested caris - QNS - PET scan done 05/23/2025 shows response. PLAN --Will continue current combined chemotherapy regimen with close CA 199 trend monitoring with plansto continue future cycles on D1 and D15 only () at same dose reduced Abraxane ( 20% ) unless futureindication to stop/further DR. - plan to follow up on liver biopsy. Plan to follow up surgical plans at [facility]. --RTC 4 weeks. Grade 1 CIPN - slightly increased (still [...] to help with pain; He declined acupuncture previously. Weight loss- Improved Lack of appetite - improved - encouraged small frequent meals - glucose controlled boost rx'd for meds to beds prior - currently drinking one boost in the mornings - meat grader consulted - weight stable, continue trending during [...] syncope, dehydration or sudden increase in pain. Carly Harry MD documented in this encounter Plan of Treatment Upcoming Encounters Date Type Department Care Team (Late st Contact Info) Description 06/21/2025 2:00 PM EDT Office Visit [facility] [address] [place] [phone] Leatha Higgins, [address] SERVICE [address] [facility] [address] [place] [address] 06/21/2025 3:30 PM EDT Appointment [facility] Infusion Clinic [address] [place] [address] 09/13/2025 2:40 PM EDT Office Visit [facility] Medicine Specialties [address] [place] [address] Douglas Schroeder PA [address] [place] [address] documented as of this encounter Results * (ABNORMAL) Cancer antigen 19-9 (05/24/2025 12:01 PM EDT) CA 19.9 127(H) <36 U/mL 05/24/2025 12:52 PM EDT [facility] Blood Venous blood specimen / Unknown (Central Line) Existing Catheter / Unknown 05/24/2025 12:01 PM EDT 05/24/2025 12:15 PM EDT Narrative [facility] - 05/24/2025 12:52 PM EDT Performed by Kiera electrochemiluminescent immunoassay. Results obtained with different test methods or kits cannot be used interchangeably. us Carly Harry MD LAB BLOOD ORDERABLES Fi nal Result [facility] [address] [place] [address] documented in this encounter Visit Diagnoses Diagnosis Pancreatic adenocarcinoma (CMS/HCC)- Primary Malignant neoplasm of pancreas, part unspecified Chemotherapy-induced neuropathy (CMS/HCC) Encounter for antineoplastic chemotherapy Neoplastic (malignant) related fatigue Chemotherapy-induced fatigue documented in this encounter Additional Health Concerns Assessment Noted Time PHQ-9 Depression Total Score: 0 10/19/20 10:40 AM EST A fall risk assessment has been complete d for the patient 05/24/2025 2:06 PM EDT A Body Mass Index follow-up plan has been documented for the patient 02/23/2025 1:24 PM EDT documented as of this encounter Care Teams Hunter Relationship Specialty Start Date End Date Ritchie Lopez MD [facility] [place] [address] PCP - General 03/30/24 Laura Maher MD [address] [facility] [address] [place] [address] Consulting Physician Medical Oncology 07/07/24 Isaac Webb MD 800 [facility] [address] [place] [address] Service Attending Radiation Oncology 10/26/24 documented as of this encounter
--- OUTSIDE RECORDS SUMMARY | 2025-05-24 13:57 | XMS_ITS | Encounter Summary ---
Author Organization [facility] Address [address] [place] [address] Care Team Providers Care Contour Path Tape Mill Operator Name Role Phone Ritchie Lopez MD Primary Care Provider [phone] Laura Maher MD Unavailable [phone] Isaac Webb MD Unavailable Reason for Visit * Episode Based Medications (Routine) - Authorized Specialty Diagnoses / Procedures Referred By Contac t Referred To Contact Diagnoses Pancreatic adenocarcinoma (CMS/HCC) Procedures Gemcitabine Weekly x 3 / Nab-Paclitaxel Weekly x 3 Every 28 Days Carly Gaxiola MD [address] [address] Phone: tel: fax: Carly Gaxiola MD [address] [address] Phone: tel: fax: Referral ID Status Reason Start Date Expiration Date V isits Requested Visits Authorized [id number] Authorized 03/28/2025 09/27/2026 1 29 Encounter Details Date Type Department Care Team (Latest Contact Info) Description 05/24/2025 1:57 PM EDT - 05/24/2025 11:59 PM EDT Hospital Encounter [facility] [address] [place] [address] Pancreatic adenocarcinoma (CMS/HCC) (Primary Dx) Discharge Disposition: [...] place to sleep or slept in a fci (including now)? No 04/02/2024 PHQ-9 Answer Date [...] drink first t cristy in the morning (EYE-GAS ROLLER OPERATOR) to steady your nerves or to get rid of a hangover? 0 04/02/2024 CAGE Questionnaire Score 0 024 Utilities Answer Date Recorded In the past 12 months has th [employer] electric, gas, oil, or water company threatened [...] Sign Reading Time Taken Comments Blood Pressure 131/74 05/24/2025 3:05 PM EDT Pulse 66 05/24/2025 3:05 PM EDT Temperature 36.7 C (98 F) 05/24/2025 2:06 PM EDT Respiratory Rate 18 05/24/2025 2:06 PM EDT Oxygen Saturation 98% 05/24/2025 2:06 PM EDT Inhaled Oxygen Concentration - - Weight 78.4 kg (172 lb 13.5 oz) 05/24/2025 2:06 PM EDT Height 172.7 cm (5' 8 ) 05/24/2025 2:06 PM EDT Body Mass Index 26.28 05/24/2025 2:06 PM EDT documented in this encounter Functional Status * Over the past 2 weeks, how often have you been bothered by any of the following problems? Question Answer Date of Assessment Author Little interest or pleasure in doing things Not at all 05/24/2025 1:17 PM Marysol Conte Feeling down, depressed, or hopeless Not at all 05/24/2025 1:17 PM Marysol Conte Patient Health Questionnaire -2 Score 0 05/24/2025 1:17 PM Marysol Conte * Question Answer Date of Assessment Author Thoughts that you would be b minerva off or hurting yourself in some way Not at all 05/24/2025 1:17 PM EDMarysol Crowder documented as of this encounter Medications at [...] mouth daily. 30 tablet 3 03/28/2025 pancrelipase, Rry-Iesa-Wrzq, (Creon) [id number] units capsule delayed-release particles capsule Take 1 [...] day with dinner. 30 capsule 11 05/19/2024 documented as of this encounter Miscellaneous Notes * Addendum Note - Danielle Hayes, PharmD - 05/24/2025 2:30 PM EDTEncounter addended by: Danielle Hayes, PharmD on: 05/26/2025 3:38 PM Actions taken: Treatment plan modified documented in this encounter Plan of Treatment Upcoming Encounters Date Type Department Care Team (Late st Contact Info) Description 06/21/2025 2:00 PM EDT Office Visit [facility] Multidisciplinary Oncology Clinic [address] [place] [address] Leatha Higgins, WILNER 800 [facility] [address] [place] [address] 06/21/2025 3:30 PM EDT Appointment [facility] Infusion Clinic [address] [place] [address] 09/13/2025 2:40 PM EDT Office Visit [facility] Medicine Specialties [address] [place] [address] Douglas Schroeder PA [address] [place] [address] documented as of this encounter Visit Diagnoses [...] refer to A14-065. Protect from light., On Fri05/24/25 at 1500, For 1 dose, UndilutedIndications:Pancrea tic adenocarcinoma (CMS/HCC) New Bag 05/24/2025 3:05 PM EDT 200 mg 120 mL/hr dexamethasone (Decadron) tablet 12 mg 12 mg, Oral, Once, 1 dose, On Fri05/24/25 at 1430, RoutineIndications:Pancreati c adenocarcinoma (CMS/HCC) Given 05/24/2025 2:16 PM EDT 12 mg gemcitabine (Gemzar) 1,900 mg in sodium chloride 0.9 % 100 mL IVPB 1,900 mg (1,000 mg/m2 1.9 m2 Treatment Plan BSA from Recorded weight), Intravenous, at 359.9 mL/hr, Administer over 30 Minutes, Once, Hazardous Drug-Tier 1 Precautions. Dispose in BLACK Hazardous Waste Container. Chemotherapy: refer to A14-065., On Fri05/24/25 at 1530, For 1 dose, NS 100 mLIndications:Pancreatic adenocarcinoma (CMS/HCC) New Bag 05/24/2025 3:39 PM EDT 1,900 mg 359.9 mL/hr documented [...] documented as of this encounter Care Teams Contour Path Tape Mill Operator Relationship Specialty Start Date End Date Ritchie Lopez MD [address] [place] [address] PCP - General 03/30/24 Laura Maher MD 800 [facility] [address] [place] [address] Consulting Physician Medical Oncology 07/07/24 Isaac Webb MD [address] [place] [address] Service Attending Radiation Oncology 10/26/24 documented as of this encounter
--- NOTE | 2025-06-09 | CA_ITS ---
APPROVED REPORT Exam: Pharmacologic Technologist: Kristal Montes Ht: 5 ft 8 in Wt: 170 lbs BSA: 1.91 m2 Medical History Medications: Albuterol, insulin, tamsulosin Stress Test Details Test: Lexiscvalentine Reason for pharmacologic stress test: physical limitation. HR Resting HR: 59 bpm Max Heart Rate (APMHR): 147 bpm Max HR Achieved: 87 bpm Target HR (85% APMHR): 125 bpm % of APMHR: 59 Recovery HR: 69 bpm BP Resting BP: 171.0/72.0 mmHg Max BP: 171.0/72.0 mmHg Recovery BP: 163.0/76.0 mmHg ECG Resting ECG: SR 59. nonspecific inferior ST changes. Stress ECG Conclusion Symptoms: Mild SOA. Arrhythmias/Ectopy: Occ PVCs. Bigeminy at times. ST-T Changes: Lexiscan. Electronically signed by : Khushi Blair MD 06/10/2025 17:59:38
--- OUTSIDE RECORDS SUMMARY | 2025-06-09 06:50 | XMS_ITS | Encounter Summary ---
Author Organization [facility] Address [address] [place] [address] Care Team Providers Care Hospital Account Liaison Name Role Phone Ritchei Lopez MD Primary Care Provider [phone] Laura Maher MD Unavailable [phone] Isaac Webb MD Unavailable Encounter Details Date Type Department Care Team (Late st Contact Info) Description 04/05/2024 Lab Requisition [facility] [address] [place] [address] Christiano Sanchez MD [address] [facility] [address] [place] [address] Encounter for general adult medical examination without abnormal findings Social History Tobacco Use Types Packs/Day Years Used Date Smoking Tobacco: Former Cigarettes Q uit: 2002 Smokeless Tobacco: Never Alcohol Use Standard Drinks/Week Comments Never 0 [...] 04/02/2024 Sexually Abused Not on file 04/02/2024 Hunger Vital Sign Answer Date Recorded Within [...] place to sleep or slept in a longterm (including now)? No 04/02/2024 CAGE ASSESSMENT Answer Date Recorded Cage unable [...] drink first t cristy in the morning (EYE-CMV DRIVER) to steady your nerves or to get [...] as of this encounter Functional Status * Calculated C-SSRS Risk Score (Lifetime/Recent) Answer Date of Assessment Author No Risk Indicated 04/08/2024 8:00 AM EDT Amanda Rollins, RN * Question Answer Date of Assessment Author 1. Wish to be (Past 1 Month) No 8:00 AM EDT Amanda Rollins, RN 2. Non-Specific Active Suici marjorie Thoughts (Past 1 Month) No 04/08/2024 8:00 AM EDT Kleber Rollins RN 3. Active Suicidal Ideation with any Methods (Not Plan) Without Intent to Act (Past 1 Month) No 04/08/2024 8:00 AM EDT Amanda Rollins, RN 4. Active Suicidal Ideation with Some Intent to Act, Without Specific Plan (Past 1 Month) No 04/08/2024 8:00 AM EDT Amanda Rollins, RN 5. Active Suicidal Ideation with Specific Plan and Intent (Past 1 Month) No 04/08/2024 8:00 AM EDT Amanda Rollins, RN 6. Suicidal Behavior (Lifetime) No 8:00 AM EDT Amanda Rollins, RN documented as of this encounter Plan of Treatment Upcoming Encounters Date Type Department Care Team (Late st Contact Info) Description 06/21/2025 2:00 PM EDT Office Visit [facility] [address] [place] [address] Leatha Higgins, CUSTOMS OFFICER [facility] [address] [place] [address] 06/21/2025 3:30 PM EDT Appointment [facility] [address] [place] [address] 09/13/2025 2:40 PM EDT Office Visit [facility] Medicine Specialties [address] [place] [address] Douglas Schroeder, PA [address] [place] [address] documented as of this encounter Procedures Procedure Name Priority Date/Time Associated Diagnosis Comments MULTI DRUG RESISTANCE TEST Routine 04/05/2024 9:00 AM EDT Encounter for general adult medical examination without abnormal findings documented in this encounter Results * Multi Drug Resistance Test (04/05/2024 9:00 AM EDT) Culture No growth at day 1 04/06/2024 7:04 AM EDT HEALTHCARE LAB Swab (Nares and Hazel Rectal) 04/05/2024 9:00 AM EDT 04/05/2024 10:08 AM EDT Christiano Sanchez MD LAB MICROBIOLOGY - GEN ERAL ORDERABLES Final Result [facility] [address] [place] [address] documented in this encounter Visit Diagnoses Diagnosis Encounter for general adult medical examination without abnormal findings documented in this encounter Additional Health Concerns Infection Onset Date Last Indicated Resolved Time Respiratory Rule-Out 04/23/2024 04/23/2024 024 2:00 AM EDT Assessment Noted Time A Body Mass Index follow-up plan has been documented for the patient 04/08/2024 1:24 PM EDT documented as of this encounter Care Teams Hospital Account Liaison Relationship Specialty Start Date End Date Ritchie Lopez MD [facility] [place] [address] PCP - General 03/30/24 Laura Maher MD [address] [place] [address] Consulting Physician Medical Oncology 07/07/24 Isaac Webb MD [address] [facility] [place] [facility] [address] [place] [address] Service Attending Radiation Oncology 10/26/24 documented as of this encounter
--- OUTSIDE RECORDS SUMMARY | 2025-06-09 06:50 | XMS_ITS | Encounter Summary ---
Author Organization [facility] Address [address] [place] [place] [address] Care Team Providers Care Reconciliation Analyst Name Role Phone Ritchie Lopez MD Primary Care Provider [phone] Laura Maher MD Unavailable [phone] Isaac Webb MD Unavailable Encounter Details Date Type Department Care Team (Latest Contact Info) Description 05/03/2025 Travel Social History Tobacco Use Types Packs/Day Years [...] drink first t cristy in the morning (EYE-CHIEF RESERVOIR ENGINEERING) to steady your nerves or to get rid of a hangover? 0 04/02/2024 CAGE Questionnaire Score 0 024 Utilities Answer Date Recorded In the past 12 months has th e [employer], gas, oil, or water company threatened to shut off services in your home? No 04/02/2024 Sex and Gender Information Value Date Recorded Sex Assigned at Male 04/09/2024 12:36 PM EDT Legal Sex Male 11:30 AM EDT Gender Identity Male 04/09/2024 12:36 PM EDT Sexual Orientation Straight 04/09/2024 12 :36 PM EDT documented as of this encounter Plan of Treatment Upcoming Encounters Date Type Department Care Team (Late st Contact Info) Description 06/21/2025 2:00 PM EDT Office Visit [facility] [address] [place] [phone] Leatha Higgins, WATER TENDER [address] [place] [facility] [address] [place] [phone] 06/21/2025 3:30 PM EDT Appointment [facility] [address] [place] [phone] 09/13/2025 2:40 PM EDT Office Visit [facility] [address] [place] [address] Douglas Schroeder, PA [address] [place] [phone] documented as of this encounter Visit Diagnoses Not on filedocumented [...] documented as of this encounter Care Teams Reconciliation Analyst Relationship Specialty Start Date End Date Ritchie Lopez MD [facility] [place] [address] PCP - General 03/30/24 Laura Maher MD [address] [place] [phone] Consulting Physician Medical Oncology 07/07/24 Isaac Webb MD [address] [facility] [address] [place] [address] Service Attending Radiation Oncology 10/26/24 documented as of this encounter
--- OUTSIDE RECORDS SUMMARY | 2025-06-09 06:50 | XMS_ITS | Encounter Summary ---
Author Organization [facility] Address [address] [place] [address] Care Team Providers Care Securities Consultant Name Role Phone Ritchie Lopez MD Primary Care Provider [phone] Laura Maher MD Unavailable [phone] Isaac Webb MD Unavailable Encounter Details Date Type Department Care Team (Late st Contact Info) Description 05/07/2025 Results Follow-Up [facility] Multidisciplinary Oncology Clinic [address] [place] [phone] Carly Gaxiola MD [address] [facility] [address] [address] Social History Tobacco Use Types Packs/Day Years [...] place to sleep or slept in a alf (including now)? No 04/02/2024 PHQ-9 Answer Date [...] drink first t cristy in the morning (EYE-DIRECTOR CONSUMER) to steady your nerves or to get rid of a hangover? 0 04/02/2024 CAGE Questionnaire Score 0 024 Utilities Answer Date Recorded In the past 12 months has th e electric, gas, oil, or water [place] threatened to shut off services in your [...] Office Visit [facility] [address] [place] [address] Leatha Higgins, ASSISTANT PRODUCE MANAGER [address] [facility] [address] [facility] [address] [place] [address] 06/21/2025 3:30 PM EDT Appointment [facility] [address] [place] [address] 09/13/2025 2:40 PM EDT Office Visit [place] [facility] [address] [place] [address] Douglas Schroeder, ROZINA [address] [facility] [address] [place] [address] documented as of this encounter Visit Diagnoses [...] documented as of this encounter Care Teams Securities Consultant Relationship Specialty Start Date End Date Rtichie Lopez MD [facility] [place] [address] PCP - General 03/30/24 Laura Maher MD [address] [facility] [address] [place] [address] Consulting Physician Medical Oncology 07/07/24 Isaac Webb MD [address] [facility] [address] [place] [address] Service Attending Radiation Oncology 10/26/24 documented as of this encounter
--- OUTSIDE RECORDS SUMMARY | 2025-06-09 06:50 | XMS_ITS | Encounter Summary ---
Author Organization [facility] Address [address] [place] [address] Care Team Providers Care Licensed Real Estate Broker Name Role Phone Ritchie Lopez MD Primary Care Provider [phone] Laura Maher MD Unavailable [phone] Isaac Webb MD Unavailable Encounter Details Date Type Department Care Team (Latest Contact Info) Description 05/20/2025 Travel Social History Tobacco Use Types Packs/Day [...] place to sleep or slept in a chcf (including now)? No 04/02/2024 PHQ-9 Answer Date [...] drink first t cristy in the morning (EYE-ELECTRONIC WARFARE LINGUIST) to steady your nerves or to get rid of a hangover? 0 04/02/2024 CAGE Questionnaire Score 0 024 Utilities Answer Date Recorded In the past 12 months has th e [employer], gas, oil, or water company threatened to [...] Visit [facility] [address] [place] [phone] Leatha Higgins, RECEIPT AND REPORT CLERK [address] [place] [facility] [address] [place] [phone] 06/21/2025 3:30 PM EDT Appointment [facility] [address] [place] [phone] 09/13/2025 2:40 PM EDT Office Visit [place] [facility] [address] [place] [address] Douglas Schroeder, PA [address] [place] [phone] documented as of this encounter Visit Diagnoses [...] documented as of this encounter Care Teams Licensed Real Estate Broker Relationship Specialty Start Date End Date Ritchie Lopez MD [facility] [place] [address] PCP - General 03/30/24 Laura Maher MD [address] [place] [phone] Consulting Physician Medical Oncology 07/07/24 Isaac Webb MD [address] [facility] [address] [place] [address] Service Attending Radiation Oncology 10/26/24 documented as of this encounter
--- OUTSIDE RECORDS SUMMARY | 2025-06-09 06:51 | XMS_ITS | Clinical Summary ---
Author Organization [facility] Address [address] [place] [address] Care Team Providers Care Accounts Payable Assistant Name Role Phone Ritchie Lopez MD Primary Care Provider [phone] Laura Maher MD Unavailable [phone] Isaac Webb MD Unavailable Allergies Active Allergy Reactions Criticality Noted Date Comments Trazodone Hallucinations Medium 04/16/2024 HALLUCINATIONS AND EYE SWELLING Medications insulin glargine (Lantus SoloStar, Basaglar) 100 UNIT/ML injection pen Inject 20 Units under the skin every night. 15 mL 3 024 Active diphenoxylate-atr opine (Lomotil) 2.5-0.025 MG tablet Take 2 tablets by mouth 4 (four) times a day if needed for diarrhea. 30 tablet 2 024 Active Additional Information Patient not taking.Reported on 01/31/2025 B-D UF III MINI PEN NEEDLES 31G X 5 MM misc 024 Active insulin glargine (Lantus SoloStar) 100 UNIT/ML injection pen Active pancrelipase, Han-Djyy-Xbeq, (Creon) 80546-037315 units capsule delayed-release particles capsule Take 1 capsule by mouth 3 (three) times a day with meals. 180 capsule 024 Active Additional Information Patient not taking.Reported on 04/26/2025 tamsulosin (Flomax) 0.4 MG 24 hr capsule Take 1 capsule (0.4 mg) by mouth 1 (one) time each day with dinner. 30 capsule 11 024 Active DULoxetine (Cymbalta) [address] capsule Take 1 capsule (30 mg) by mouth 1 (one) time each day. Do not crush or chew. 30 capsule 1 024 Active Additional Information Patient not taking.Reported on 01/31/2025 gabapentin (Neurontin) 100 MG capsule Take 1 capsule (100 mg) by mouth 3 (three) times a day. 30 capsule Active Additional Information Patient not taking.Reported on 01/31/2025 diclofenac (Voltaren) 1 % topical gelIndications:Pa ncreatic adenocarcinoma (CMS/HCC) Place 1-2 g on the skin 2 (two) times a day. Apply as directed to both palms. 50 g 1 Active Additional Information Patient not taking.Reported on 01/31/2025 prochlorperazine (Compazine) 10 MG tabletIndications :Pancreatic adenocarcinoma (CMS/HCC) Take 1 tablet by mouth every 6 hours as needed for nausea or vomiting. 30 tablet 5 025 Active Additional Information Patient not taking.Reported on 04/26/2025 lisinopril 10 MG tablet Take 1 tablet by mouth daily. 30 tablet 3 025 Active atorvastatin (Lipitor) 40 MG tablet Take 1 tablet (40 mg) by mouth 1 (one) time each day. 2024 Discontinued Active Problems Problem Noted Date Diagnosed Date Diabetes mellitus 07/27/2024 Hyperlipidemia 07/27/2024 Hypertension 07/27/2024 Pancreatic cancer 07/27/2024 Asthma-chronic obstructive p ulmonary disease overlap syndrome 07/27/2024 Asthma 07/27/2024 COPD mixed type 07/27/2024 History of 2019 novel coronavirus disease (COVID -19) 07/27/2024 Lung nodule 07/27/2024 Restrictive lung disease 07/27/2024 BPH associated with nocturia 05/19/2024 Pancreatic adenocarcinoma 04/16/2024 Cancer Staging:Clinical:Stage IIB(cT2, cN1, cM0) - Signed by Laura Maher MD on 04/16/2024 Mild protein-calorie malnutrition 04/06/2024 Mass of head of pancreas 04/01/2024 High total bilirubin 04/01/2024 Right upper quadrant pain 04/01/2024 Unintentional weight loss 04/01/2024 Encounters Date Type Department Care Team Description 05/24/2025 1:57 PM EDT - 05/24/2025 11:59 PM EDT Hospital Encounter [facility] [address] [place] [address] Pancreatic adenocarcinoma (CMS/HCC) (Primary Dx) Discharge Disposition: Home or Self Care 05/24/2025 1:00 PM EDT Office Visit [facility] Multidisciplinary Oncology Clinic [address] [place] [address] Carly Gaxiola MD Pancreatic adenocarcinoma (CMS/HCC) (Primary Dx); Chemotherapy-induced neuropathy (CMS/HCC); Encounter for antineoplastic chemotherapy; Neoplastic (malignant) related fatigue; Chemotherapy-induced fatigue 05/24/2025 12:30 PM EDT Clinical Support [facility] [address] [place] [address] Pancreatic adenocarcinoma (CMS/HCC) 05/24/2025 Telephone [facility] [address] [place] [address] Gisell Khan RN 05/24/2025 Travel 05/23/2025 7:12 AM EDT - 05/23/2025 11:59 PM EDT Hospital Encounter [facility] PET Scan [address] [place] [address] Discharge Disposition: Home or Self Care 05/23/2025 7:12 AM EDT - 05/23/2025 11:59 PM EDT Hospital Encounter [facility] PET Scan [address] [place] [address] Pancreatic adenocarcinoma (CMS/HCC) Discharge Disposition: Home or Self Care 05/23/2025 Travel 05/20/2025 Travel 05/07/2025 Results Follow-Up [facility] [address] [place] [address] Carly Gaxiola MD 05/03/2025 2:15 PM EDT - 05/03/2025 11:59 PM EDT Hospital Encounter [facility] [address] [place] [address] Pancreatic adenocarcinoma (CMS/HCC) (Primary Dx) Discharge Disposition: Home or Self Care 05/03/2025 Travel 05/02/2025 10:12 AM EDT - 05/02/2025 11:59 PM EDT Hospital Encounter [facility] [address] [place] [address] Malignant neoplasm of head of pancreas (CMS/HCC) Discharge Disposition: Home or Self Care 05/02/2025 Travel 05/01/2025 Travel 04/29/2025 Travel 04/26/2025 3:00 PM EDT - 04/26/2025 11:59 PM EDT Hospital Encounter [facility] [address] [place] [address] Pancreatic adenocarcinoma (CMS/HCC) (Primary Dx) Discharge Disposition: Home or Self Care 04/26/2025 1:40 PM EDT Office Visit [facility] [address] [place] [address] Carly Gaxiola MD Pancreatic adenocarcinoma (CMS/HCC) (Primary Dx); Chemotherapy-induced neuropathy (CMS/HCC); Encounter for antineoplastic chemotherapy; Neoplastic (malignant) related fatigue; Chemotherapy-induced fatigue; Chemotherapy-induced nausea 04/26/2025 1:00 PM EDT Clinical Support [facility] [address] [place] [address] Pancreatic adenocarcinoma (CMS/HCC) 04/26/2025 Orders Only Radiology Virtual Dept. [address] [place] [address] Zenaida Ngo, 04/26/2025 Travel 04/25/2025 Travel 04/21/2025 Travel 04/11/2025 1:56 PM EDT - 04/11/2025 11:59 PM EDT Hospital Encounter [facility] [address] [place] [address] Pancreatic adenocarcinoma (CMS/HCC) (Primary Dx) Discharge Disposition: Home or Self Care 04/11/2025 Travel 04/07/2025 Travel 04/04/2025 1:52 PM EDT - 04/04/2025 11:59 PM EDT Hospital Encounter [facility] [address] [place] [address] Pancreatic adenocarcinoma (CMS/HCC) (Primary Dx) Discharge Disposition: Home or Self Care 04/04/2025 Travel 03/28/2025 12:00 PM EDT - 03/28/2025 11:59 PM EDT Hospital Encounter [facility] [address] [place] [address] Pancreatic adenocarcinoma (CMS/HCC) (Primary Dx) Discharge Disposition: Home or Self Care 03/28/2025 10:40 AM EDT Office Visit [facility] Multidisciplinary Oncology Clinic [address] [place] [address] Carly Gaxiola MD Pancreatic adenocarcinoma (CMS/HCC) (Primary Dx); Chemotherapy-induced neuropathy (CMS/HCC); Encounter for antineoplastic chemotherapy; Mass of head of pancreas; Neoplastic (malignant) related fatigue 03/28/2025 10:30 AM EDT Clinical Support [facility] Multidisciplinary Oncology Clinic [address] [place] [address] Elise Neal, RN Pancreatic adenocarcinoma (CMS/HCC) 03/28/2025 Orders Only [facility] Multidisciplinary Oncology Clinic [address] [place] [address] Gisell Khan, IVETTE Pancreatic adenocarcinoma (CMS/HCC) (Primary Dx) 03/28/2025 Travel 03/27/2025 Travel 03/25/2025 Orders Only [facility] Multidisciplinary Oncology Clinic [address] [place] [address] Carly Gaxiola MD from Last 3 Months Family History Medical History Relation Name Comments Cancer Brother 1 Jorge Cancer Brother 2 Jesse Toan Cancer Father Fatoumata Toan Diabetes Father Fatoumata Toan Heart attack Father Fatoumata Toan Heart disease Father Fatoumata Toan Stroke Father Fatoumata Toan Relation Name Status Comments Brother 1 Jorge Brother 2 Jesse Toan Father Fatoumata Toan Social History Tobacco Use Types Packs/Day Years [...] place to sleep or slept in a snf (including now)? 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 0 04/02/2024 CAGE Questionnaire Score 0 024 Utilities Answer Date Recorded In the past 12 months has th e [employer], gas, oil, or water [employer] threatened to shut off services in your home? No 04/02/2024 Sex and Gender Information Value Date Recorded Sex Assigned at Male 04/09/2024 12:36 PM EDT Legal Sex Male 11:30 AM EDT Gender Identity Male 04/09/2024 12:36 PM EDT Sexual Orientation Straight 04/09/2024 12 :36 PM EDT Last Filed Vital Signs Vital Sign Reading [...] Mass Index 26.28 05/24/2025 2:06 PM EDT Plan of Treatment Upcoming Encounters Date Type Department Care Team (Late st Contact Info) Description 06/21/2025 2:00 PM EDT Office Visit [facility] Multidisciplinary Oncology Clinic [address] [place] [address] Leatha Higgins, SIGNAL TECHNICIAN [address] [facility] [address] [place] [facility] [address] [place] [address] 06/21/2025 3:30 PM EDT Appointment [facility] [address] [place] [address] 09/13/2025 2:40 PM EDT Office Visit [facility] [address] [place] [address] Douglas Schroeder PA [address] [place] [address] Health Maintenance Due Date Last Done Comments [facility]-Medicare Annual Wellness (AWV) 1950 [facility]-Infant/Child/Adol SDOH Screenings 1950 KLX-STERH-70 Vaccine (#1) 1956 Diabetes: Dental Exam 1961 [facility]- SDOH Screenings 1969 [facility]-Adult SDOH Screenings 1969 [facility]-DTaP,Tdap,and Td Vaccines (1 - Tdap) 1970 [facility]-Pneumococcal Vaccine: 50+ Years (1 of 2 - PCV) 1970 [facility]-Zoster Vaccines (1 of 2) 1970 CT Colonography 1996 Colonoscopy 1996 FIT-DNA 1996 FIT 1996 FOBT 1996 Sigmoidoscopy 1996 [facility]-Colorectal Cancer Screening 1996 [facility]-RSV Vaccine: 60+ Years or (1 - Risk 60-74 years 1-dose series) 2011 [facility]-Abdominal Aortic Aneurysm (AAA) Screening 2016 [facility]-Diabetes: Hemoglobin A1C 06/06/2025 12/07/2024 [facility]-Influenza Vaccine (#1) 2025 [facility]-Depression Screening 05/24/2026 05/24/2025, 10/01 [facility]-Hepatitis C Screening Completed 04/02/2024, 01/2024 [facility]-Obesity Intervention Completed 025, 10/19/2024, 10/05/2024, Additional history exists HPV Vaccines Aged Out No longer eligi ble based on patient's age to complete this topic [facility]-HIB Vaccines Aged Out No longer e ligible based on patient's age to complete this topic [facility]-Hepatitis A Vaccines Aged Out No longer eligible based on patient's age to complete this topic [facility]-IPV Vaccines Aged Out No longer e ligible based on patient's age to complete this topic [facility]-Rotavirus Vaccines Aged Out No lo nger eligible based on patient's age to complete this topic Medical Devices Implanted Type Area Marketing Finance Manager Device Identifier Shelf Expiration Date Model / Serial / Lot Port Clearvue Power 8fr - [id number] Implanted:Qt y: 1 on 04/07/2024 by Maycol Slater MD at [facility] Other Medication Pump Right: Subclavian Bard Per[employer] V[employer]-[id number] 09/30/2025 [id number] / / [id number] Stent Biliary 2.3 X 100mm - [id number] Implanted:Qt y: 1 on 04/02/2024 by Brandon Martin MD at [facility] Bile Duct [employer]-[id number] 10/23/2026 [id number] / / [id number] Stent Viabil 10 X 80mm - [id number] Implanted:Qt y: 1 on 04/02/2024 by Brandon Martin MD at [facility] Bile Duct Conmed Endosurgery-13 8855 12/29/2026 [id number] / [id number] / [id number] Stent Viabil 10 X 80mm - [id number] Implanted:Qt y: 1 on 09/07/2024 by Brandon Martin MD at [facility] Bile Duct [employer]med Endosurgery-13 8855 05/04/2027 [id number] / [id number] / [id number] Stent Zimmon 7fr X 7cm - [id number] Implanted:Qt y: 1 on 09/07/2024 by Brandon Martin MD at [facility] Bile Duct [employer]-[id number] 05/13/2027 [id number] / / [id number] Stent Viabil 10 X 80mm - [id number] Implanted:Qt y: 1 on 02/08/2025 by Brandon Martin MD at [facility] [employer]med Endosurgery-13 8855 06/21/2027 [id number] / [id number] / [id number] Procedures Procedure Name Priority Date/Time Associated Diagnosis Comments CBC WITH AUTO DIFFERENTIAL Routine 05/24/2025 12:01 PM EDT Pancreatic adenocarcinoma (CMS/HCC) COMPREHENSIVE METABOLIC PANEL, PLASMA Routine 05/24/2025 12:01 PM EDT Pancreatic adenocarcinoma (CMS/HCC) CANCER ANTIGEN, GI (CA 19.9) Routine 05/24/2025 12:01 PM EDT Pancreatic adenocarcinoma (CMS/HCC) PET/CT FDG SKULL BASE TO MID THIGH Routine 05/23/2025 8:33 AM EDT Pancreatic adenocarcinoma (CMS/HCC) CBC WITH AUTO DIFFERENTIAL Routine 05/03/2025 2:29 PM EDT Pancreatic adenocarcinoma (CMS/HCC) CT ABDOMEN PELVIS W IV CONTRAST Routine 05/02/2025 11:20 AM EDT Malignant neoplasm of head of pancreas (CMS/HCC) CT CHEST W IV CONTRAST Routine 05/02/2025 11:20 AM EDT Malignant neoplasm of head of pancreas (CMS/HCC) CBC WITH AUTO DIFFERENTIAL Routine 04/26/2025 1:53 PM EDT Pancreatic adenocarcinoma (CMS/HCC) COMPREHENSIVE METABOLIC PANEL, PLASMA Routine 04/26/2025 1:53 PM EDT Pancreatic adenocarcinoma (CMS/HCC) CANCER ANTIGEN, GI (CA 19.9) Routine 04/26/2025 1:53 PM EDT Pancreatic adenocarcinoma (CMS/HCC) CBC WITH AUTO DIFFERENTIAL Routine 04/11/2025 2:10 PM EDT Pancreatic adenocarcinoma (CMS/HCC) CBC WITH AUTO DIFFERENTIAL Routine 04/04/2025 2:41 PM EDT Pancreatic adenocarcinoma (CMS/HCC) CANCER ANTIGEN, GI (CA 19.9) Routine 03/28/2025 11:20 AM EDT Pancreatic adenocarcinoma (CMS/HCC) COMPREHENSIVE METABOLIC PANEL, PLASMA Routine 03/28/2025 11:19 AM EDT Pancreatic adenocarcinoma (CMS/HCC) CBC WITH AUTO DIFFERENTIAL Routine 03/28/2025 11:19 AM EDT Pancreatic adenocarcinoma (CMS/HCC) HEMOGLOBIN A1C Routine 12/07/2024 10:25 AM EST Malignant neoplasm of head of pancreas (CMS/HCC) ACUTE HEPATITIS PANEL Routine 04/02/2024 3:10 AM EDT from Last 3 Months or Most Recently Relevant to Health Maintenance Results * (ABNORMAL) Cancer antigen 19-9 (05/24/2025 12:01 PM EDT) Only the most recent of3 resultswithin the time period is included. CA 19.9 127(H) <36 U/mL 05/24/2025 12:52 PM EDT [facility] Blood Venous blood specimen / Unknown (Central Line) Existing Catheter / Unknown 05/24/2025 12:01 PM EDT 05/24/2025 12:15 PM EDT [facility] - 05/24/2025 12:52 PM EDT Performed by Kiera electrochemiluminescent immunoassay. Results obtained with different test methods or kits cannot be used interchangeably. Carly Harry MD LAB BLOOD ORDERABLES Fi nal Result [facility] [address] [place] [address] * (ABNORMAL) CBC and differential (05/24/2025 12:01 PM EDT) Only the most recent of6 resultswithin the time period is included. WBC Count 9.38 3.70 - 10.30 10*3/uL LAB HEMATOLOGY METHOD 05/24/2025 12:10 PM EDT [facility] RBC Count 4.51(L) 4.60 - 6.10 10*6/uL LAB HEMATOLOGY METHOD 05/24/2025 12:10 PM EDT [facility] HGB 11.2(L) 13.7 - 17.5 g/dL LAB HEMATOLOGY METHOD 05/24/2025 12:10 PM EDT [facility] HCT 36.2(L) 40.0 - 51.0 % LAB HEMATOLOGY METHOD 05/24/2025 12:10 PM EDT [facility] Platelet Count 351 155 - 369 10*3/uL LAB HEMATOLOGY METHOD 05/24/2025 12:10 PM EDT [facility] MCV 80 79 - 98 fL LAB HEMATOLOGY METHOD 05/24/2025 12:10 PM EDT [facility] MCH 24.8(L) 26.0 - 32.0 pg LAB HEMATOLOGY METHOD 05/24/2025 12:10 PM EDT [facility] MCHC 30.9 30.7 - 35.5 g/dL LAB HEMATOLOGY METHOD 05/24/2025 12:10 PM EDT [facility] RDW 17.2(H) 11.5 - 14.5 % LAB HEMATOLOGY METHOD 05/24/2025 12:10 PM EDT [facility] MPV 8.2(L) 8.8 - 12.5 fL LAB HEMATOLOGY METHOD 05/24/2025 12:10 PM EDT [facility] nRBC 0.0 <=0.0 per 100 WBCs LAB HEMATOLOGY METHOD 05/24/2025 12:10 PM EDT [facility] Differential Type Automated LAB HEMATOLOGY METHOD 05/24/2025 12:10 PM EDT [facility] Neutrophils % 68 % LAB HEMATOLOGY METHOD 05/24/2025 12:10 PM EDT [facility] Lymphocytes % 13 % LAB HEMATOLOGY METHOD 05/24/2025 12:10 PM EDT [facility] Monocytes % 13 % LAB HEMATOLOGY METHOD 05/24/2025 12:10 PM EDT [facility] Eosinophils % 3 % LAB HEMATOLOGY METHOD 05/24/2025 12:10 PM EDT [facility] Basophils % 1 % LAB HEMATOLOGY METHOD 05/24/2025 12:10 PM EDT [facility] Immature Granulocytes % 2 % LAB HEMATOLOGY METHOD 05/24/2025 12:10 PM EDT [facility] Neutrophils Absolute 6.43(H) 1.60 - 6.10 10*3/uL LAB HEMATOLOGY METHOD 05/24/2025 12:10 PM EDT [facility] Lymphocytes Absolute 1.24 1.20 - 3.90 10*3/uL LAB HEMATOLOGY METHOD 05/24/2025 12:10 PM EDT [facility] Monocytes Absolute 1.26(H) 0.30 - 0.90 10*3/uL LAB HEMATOLOGY METHOD 05/24/2025 12:10 PM EDT [facility] Eosinophils Absolute 0.25 0.00 - 0.50 10*3/uL LAB HEMATOLOGY METHOD 05/24/2025 12:10 PM EDT [facility] Basophils Absolute 0.06 0.00 - 0.10 10*3/uL LAB HEMATOLOGY METHOD 05/24/2025 12:10 PM EDT [facility] Immature Granulocytes Absolute 0.14(H) 0.00 - 0.06 10*3/uL LAB HEMATOLOGY METHOD 05/24/2025 12:10 PM EDT [facility] Blood Venous blood specimen / Unknown (Central Line) Existing Catheter / Unknown 05/24/2025 12:01 PM EDT 05/24/2025 12:08 PM EDT Narrative [facility] - 05/24/2025 12:10 PM EDT Therapeutic decision making should be based on absolute values, rather than percentages. Carly Harry MD LAB BLOOD ORDERABLES Fi nal Result [facility] [address] [place], [place] [id number] * (ABNORMAL) Comprehensive metabolic panel (05/24/2025 12:01 PM EDT) Only the most recent of3 resultswithin the time period is included. Glucose, Plasma 105(H) 74 - 99 mg/dL 05/24/2025 12:46 PM EDT [facility] BUN, Plasma 14 8 - 23 mg/dL 05/24/2025 12:46 PM EDT [facility] Creatinine, Plasma 0.66(L) 0.70 - 1.20 mg/dL 05/24/2025 12:46 PM EDT [facility] BUN/Creatinine Ratio 21 05/24/2025 12:46 PM EDT [facility] Sodium, Plasma 141 136 - 145 mmol/L 05/24/2025 12:46 PM EDT [facility] Potassium, Plasma 4.9 3.6 - 4.9 mmol/L 05/24/2025 12:46 PM EDT [facility] Chloride, Plasma 108(H) 97 - 107 mmol/L 05/24/2025 12:46 PM EDT [facility] CO2, Plasma 23 22 - 29 mmol/L 05/24/2025 12:46 PM EDT [facility] Anion Gap 10 6 - 16 mmol/L 05/24/2025 12:46 PM EDT [facility] Total Calcium, Plasma 8.8(L) 8.9 - 10.2 mg/dL 05/24/2025 12:46 PM EDT [facility] Total Protein 6.7 6.3 - 7.9 g/dL 05/24/2025 12:46 PM EDT [facility] Albumin, Plasma 3.2(L) 3.5 - 5.2 g/dL 05/24/2025 12:46 PM EDT [facility] AST, Plasma 34 10 - 50 U/L 05/24/2025 12:46 PM EDT [facility] ALT, Plasma 27 10 - 50 U/L 05/24/2025 12:46 PM EDT [facility] Alkaline Phosphatase, Plasma 143(H) 40 - 115 U/L 05/24/2025 12:46 PM EDT [facility] Total Bilirubin, Plasma 0.4 0.2 - 1.1 mg/dL 05/24/2025 12:46 PM EDT [facility] eGFRcr 99.0 mL/min/1.7 3m*2 05/24/2025 12:46 PM EDT [facility] Comment:Reported eGFRcr in m L/min/1.73m2 is based the CKD-EPI 2020 equation that does not use a race coefficient. Blood Venous blood specimen / Unknown (Central Line) Existing Catheter / Unknown 05/24/2025 12:01 PM EDT 05/24/2025 12:15 PM EDT us Carly Harry MD LAB BLOOD ORDERABLES Fi nal Result [facility] [address] [address] * PET/CT FDG Skull Base To Mid [...] scanner: Siemens Biograph 40 mCT. PET/CT acquisition: Jejodh-fu-tgm-thighs. Standardized uptake value (SUV): Corrected for body weight only. CT: Low-dose, vmn-umauaz-mjql, without intravenous contrast. TOTAL DLP (Dose Length [...] scanner: Siemens Biograph 40 mCT. PET/CT acquisition: Pbbqvd-zs-mvu-thighs. Standardized uptake value (SUV): Corrected for body weight only. CT: Low-dose, cgw-yhdgdv-bzpg, without intravenous contrast. TOTAL DLP (Dose Length [...] Harry MD IMG NM PROCEDURES Final Result * CT Abdomen Pelvis w IV Contrast [...] Total DLP (Dose-Length Product): 943.82 mGy.cm (accession [id number]), 943.82 mGy.cm (accession [id number]) Please note: The reported value represents the [...] Total DLP (Dose-Length Product): 943.82 mGy.cm (accession [id number]),943.82 mGy.cm (accession [id number]) Please note: The reported valuerepresents the total [...] pulmonary emboli. No pericardial effusion. Right chest eoceNnsm-H-Cbje with tip terminating within the mid to [...] of the SMA without caliber narrowing. There [id number] degree posterior abutment of the main portal [...] Total DLP (Dose-Length Product): 943.82 mGy.cm (accession [id number]), 943.82 mGy.cm (accession [id number]) Please note: The reported value represents the [...] Total DLP (Dose-Length Product): 943.82 mGy.cm (accession [id number]),943.82 mGy.cm (accession [id number]) Please note: The reported valuerepresents the total [...] pulmonary emboli. No pericardial effusion. Right chest usxqVlcg-X-Ocnd with tip terminating within the mid to [...] of the SMA without caliber narrowing. There [id number] degree posterior abutment of the main portal [...] IMG CT PROCEDURES Final Re sult * (ABNORMAL) Hemoglobin A1c (12/07/2024 10:25 AM EST) Hemoglobin A1c 6.4(H) <5.7 % 12/07/2024 1:52 PM EST [facility] Blood Venous blood specimen / Unknown Venipuncture / Unknown 12/07/2024 10:25 AM EST 12/07/2024 10:29 AM EST Narrative [facility] - 12/07/2024 1:52 PM EST HA1C Interpretive Data: Diagnosis of Diabetes: Diabetic > or = 6.5% Pre-diabetic 5.7 to 6.4% Non-diabetic < or = 5.6% Glycemic Targets for Type I and Type II Diabetics: Non- Adults <7.0% Adults <6.0% Children and Adolescents <7.5% Source: [place] [employer]. Standards of medical care in diabetes,2017. Diabetes Care.2017:40 (suppl 1):S1-S135. HbA1c assay performed by an ion-exchange chromatography method that is certified traceable to the DCCT. us Laura Maher MD LAB BLOOD ORDERABLES Final Result [facility] [address] [place] [address] * Hepatitis panel, acute (04/02/2024 3:10 AM EDT) Hepatitis B Surf Antigen Negative Negative 04/02/2024 4:31 AM EDT [facility] Hepatitis A Antibody IgM Negative Negative 04/02/2024 4:31 AM EDT [facility] Hepatitis B Core Antibody IgM Negative Negative 04/02/2024 4:31 AM EDT [facility] Blood Venous blood specimen / Unknown Venipuncture / Unknown 04/02/2024 3:10 AM EDT 04/02/2024 3:31 AM EDT Narrative [facility] - 04/02/2024 4:31 AM EDT Hepatitis C Antibody previously reported on patient within 24hrs and will not be repeated on this panel. See previous results below: Hepatitis C Antibody Date Value Ref Range Status 04/01/2024 Negative Negative Final Yuliana Stoner SIGNAL TECHNICIAN LAB BLOOD ORDERABLES Final Result [facility] [address] [place] [address] from Last 3 Months or Most Recently Relevant to Health Maintenance Insurance [facility] Advance Directives * Full Code (Latest Code Status on File) Date Activated Date Inactivated Comments 04/01/2024 11:02 PM 04/08/2024 4:43 PM Question Answer Comments Patient has decision-making capacity? Yes Care Teams Accounts Payable Assistant Relationship Specialty Start Date End Date Ritchie Lopez MD [address] [place] [id number] PCP - General 03/30/24 Laura Maher MD [address] [place] [address] [place] [id number] Consulting Physician Medical Oncology 07/07/24 Isaac Webb MD [id number] [place] [phone] Service Attending Radiation Oncology 10/26/24
--- OUTSIDE RECORDS SUMMARY | 2025-06-09 06:51 | XMS_ITS | Encounter Summary ---
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 0 04/02/2024 CAGE Questionnaire Score 0 024 Utilities Answer Date Recorded In the past 12 months has th e [employer], gas, oil, or water company threatened to [...] Visit [facility] [address] [place] [address] Leatha Higgins, STATION USHER [address] [facility] [address] [place] [address] 06/21/2025 3:30 PM EDT Appointment [facility] [address] [place] [address] 09/13/2025 2:40 PM EDT Office Visit [facility] [address] [place] [address] Douglas Schroeder, PA [address] [place] [phone] documented as of this encounter Visit Diagnoses [...] documented as of this encounter Care Teams Round Cutter Operator Relationship Specialty Start Date End Date Ritchie Lopez MD [facility] [place] [address] PCP - General 03/30/24 Laura Maher MD [address] [place] [address] Consulting Physician Medical Oncology 07/07/24 Isaac Webb MD [address] [facility] [address] [place] [address] Service Attending Radiation Oncology 10/26/24 documented as of this encounter
--- OUTSIDE RECORDS SUMMARY | 2025-06-09 06:51 | XMS_ITS | Encounter Summary ---
Author Organization [facility] Address [address] [place] [address] Care Team Providers Care Supervisor Shellfish Farming Name Role Phone Ritchie Lopez MD Primary Care Provider [phone] Laura Maher MD Unavailable [phone] Isaac Webb MD Unavailable Encounter Details Date Type Department Care Team (Latest Contact Info) Description 05/01/2025 Travel Social History Tobacco Use Types Packs/Day [...] place to sleep or slept in a assisted (including now)? No 04/02/2024 PHQ-9 Answer Date [...] drink first t cristy in the morning (EYE-ELECTROMECHANISMS DESIGN DRAFTER) to steady your nerves or to get rid of a hangover? 0 04/02/2024 CAGE Questionnaire Score 0 024 Utilities Answer Date Recorded In the past 12 months has th e [employer], gas, oil, or water company threatened to [...] Visit [facility] [address] [place] [address] Leatha Higgins, NURSE AUDITOR [address] [place] [facility] [address] [place] [address] 06/21/2025 3:30 PM EDT Appointment [facility] [address] [place] [address] 09/13/2025 2:40 PM EDT Office Visit [place] [facility] [address] [place] [address] Douglas Schroeder, PA [address] [place] [address] documented as of this encounter Visit Diagnoses [...] documented as of this encounter Care Teams Supervisor Shellfish Farming Relationship Specialty Start Date End Date Ritchie Lopez MD [facility] [place] [address] PCP - General 03/30/24 Laura Maher MD [address] [place] [address] Consulting Physician Medical Oncology 07/07/24 Isaac Webb MD [address] [facility] [address] [place] [address] Service Attending Radiation Oncology 10/26/24 documented as of this encounter
--- OUTSIDE RECORDS SUMMARY | 2025-06-09 06:51 | XMS_ITS | Encounter Summary ---
Author Organization [facility] Address [address] [place] [address] Care Team Providers Care Tree Specialist Name Role Phone Ritchie Lopez MD Primary Care Provider [phone] Laura Maher MD Unavailable [phone] Isaac Webb MD Unavailable Encounter Details Date Type Department Care Team (Late st Contact Info) Description 04/26/2025 Orders Only [facility] Virtual Dept. [address] [place] [address] Zenaida Ngo, [address] [place] [phone] Social History Tobacco Use Types Packs/Day Years [...] place to sleep or slept in a prison (including now)? No 04/02/2024 PHQ-9 Answer Date [...] drink first t cristy in the morning (EYE-FIXED ROUTE BUS OPERATOR) to steady your nerves or to get rid of a hangover? 0 04/02/2024 CAGE Questionnaire Score 0 024 Utilities Answer Date Recorded In the past 12 months has th e [employer], oil, or water [employer] threatened to shut off services in your [...] Amber Beltran documented as of this encounter Plan of Treatment Upcoming Encounters Date Type Department Care Team (Late st Contact Info) Description 06/21/2025 2:00 PM EDT Office Visit [facility] [address] [place] [address] Leatha Higgins, WILNER 800 [facility] [address] [place] [address] 06/21/2025 3:30 PM EDT Appointment [facility] [address] [place] [address] 09/13/2025 2:40 PM EDT Office Visit [place] [facility] [address] [place] [address] Douglas Schroeder PA [address] [facility] [address] [place] [address] documented as of this encounter Visit Diagnoses [...] documented as of this encounter Care Teams Tree Specialist Relationship Specialty Start Date End Date Ritchie Lopez MD [address] [place] [address] PCP - General 03/30/24 Laura Maher MD [address] [facility] [address] [place] [phone] Consulting Physician Medical Oncology 07/07/24 Isaac Webb MD [address] [place] [facility] [address] [place] [address] Service Attending Radiation Oncology 10/26/24 documented as of this encounter
--- OUTSIDE RECORDS SUMMARY | 2025-06-09 06:51 | XMS_ITS | Encounter Summary ---
Author Organization [facility] Address [address] [place] [place] [address] Care Team Providers Care Front Desk Attendant Name Role Phone Ritchie Lopez MD Primary Care Provider [phone] Laura Maher MD Unavailable [phone] Isaac Webb MD Unavailable Encounter Details Date Type Department Care Team (Latest Contact Info) Description 05/02/2025 Travel Social History Tobacco Use Types Packs/Day [...] place to sleep or slept in a penitentiary (including now)? No 04/02/2024 PHQ-9 Answer Date [...] drink first t cristy in the morning (EYE-JAVA SYSTEMS ANALYST) to steady your nerves or to get rid of a hangover? 0 04/02/2024 CAGE Questionnaire Score 0 024 Utilities Answer Date Recorded In the past 12 months has th e [employer], gas, oil, or water company threatened to [...] Visit [facility] [address] [place] [address] Leatha Higgins, ENGRAVER STEEL PLATE [address] [place] [facility] [address] [place] [address] 06/21/2025 3:30 PM EDT Appointment [facility] [address] [place] [address] 09/13/2025 2:40 PM EDT Office [facility] [address] [place] [address] Douglas Schroeder, PA [address] [place] [address] documented as of this encounter Visit Diagnoses [...] documented as of this encounter Care Teams Front Desk Attendant Relationship Specialty Start Date End Date Ritchie Lopez MD [facility] [place] [address] PCP - General 03/30/24 Laura Maher MD [address] [place] [address] Consulting Physician Medical Oncology 07/07/24 Isaac Webb MD 800 [facility] [address] [place] [address] Service Attending Radiation Oncology 10/26/24 documented as of this encounter
--- OUTSIDE RECORDS SUMMARY | 2025-06-09 06:51 | XMS_ITS | Encounter Summary ---
Author Organization [facility] Address [address] [place] [address] Care Team Providers Care Dyed Raw Stock Blower Feeder Name Role Phone Ritchie Lopez MD Primary Care Provider [phone] Laura Maher MD Unavailable [phone] Isaac Webb MD Unavailable Encounter Details Date Type Department Care Team (Latest Contact Info) Description 04/11/2025 Travel Social History Tobacco Use Types Packs/Day [...] drink first t cristy in the morning (EYE-SAMPLE SUPERVISOR) to steady your nerves or to get rid of a hangover? 0 04/02/2024 CAGE Questionnaire Score 0 024 Utilities Answer Date Recorded In the past 12 months has th e [employer], gas, oil, or water company threatened to [...] Visit [facility] [address] [place] [address] Leatha Higgins, COIL FINISHER [address] [place] [facility] [address] [place] [address] 06/21/2025 3:30 PM EDT Appointment [facility] [address] [place] [address] 09/13/2025 2:40 PM EDT Office Visit [place] [facility] [address], [address] [place] [address] Douglas Schroeder, PA [address] [place] [address] documented as of this encounter Visit Diagnoses [...] documented as of this encounter Care Teams Dyed Raw Stock Blower Feeder Relationship Specialty Start Date End Date Ritchie Lopez MD [facility] [place] [address] PCP - General 03/30/24 Laura Maher MD [address] [place] [address] Consulting Physician Medical Oncology 07/07/24 Isaac Webb MD 800 [facility] [address] [place] [address] Service Attending Radiation Oncology 10/26/24 documented as of this encounter
--- OUTSIDE RECORDS SUMMARY | 2025-06-09 06:51 | XMS_ITS | Encounter Summary ---
Author Organization [facility] Address [address] [place] [address] Care Team Providers Care Cad Cam Programmer Name Role Phone Ritchie Lopez MD Primary Care Provider [phone] Laura Maher MD Unavailable [phone] Isaac Webb MD Unavailable Encounter Details Date Type Department Care Team (Latest Contact Info) Description 04/29/2025 Travel Social History Tobacco Use Types Packs/Day [...] place to sleep or slept in a nursing home (including now)? No 04/02/2024 PHQ-9 Answer [...] drink first t cristy in the morning (EYE-ACCESSIBILITY LIFT TECHNICIAN) to steady your nerves or to get rid of a hangover? 0 04/02/2024 CAGE Questionnaire Score 0 024 Utilities Answer Date Recorded In the past 12 months has th e [email or web address], gas, oil, or water company threatened to [...] Visit [facility] [address] [place] [address] Leatha Higgins, CUSTOMER ACQUISITION SPECIALIST [address] [place] [facility] [address] [place] [address] 06/21/2025 3:30 PM EDT Appointment [facility] [address] [place] [address] 09/13/2025 2:40 PM EDT [facility] [address] [place] [address] Douglas Schroeder, PA [address] [place] [address] documented as of this encounter Visit Diagnoses [...] documented as of this encounter Care Teams Cad Cam Programmer Relationship Specialty Start Date End Date Ritchie Lopez MD [facility] [place] [address] PCP - General 03/30/24 Laura Maher MD [address] [place] [address] Consulting Physician Medical Oncology 07/07/24 Isaac Webb MD [address] [facility] [address] [place] [address] Service Attending Radiation Oncology 10/26/24 documented as of this encounter
--- OUTSIDE RECORDS SUMMARY | 2025-06-09 06:51 | XMS_ITS | Data Portability ---
Author Organization [facility] [place] Address [address] [place] [address] Assessment No assessment recorded. Plan of Treatment Reminders Order Date Submit Date Provider Last Modified By Organization Details Last Modified Time Details Appointments None recorded. Lab CBC w/ auto diff 2023 024 [email or web address] 4 [facility] (Lab Registration) , [address] [place] [address] [place], [address], 4 13:30:25 CMP, serum or plasma 2023 024 [email or web address] 4 [facility] (Lab Registration) , [address] [place] [address] [place], [address], 4 13:30:25 Referral None recorded. Procedures upper endoscopy procedure (EGD) (PROC) 2023 024 [email or web address] 4 Bernardino Restrepo, [address] [place] [address] , [facility] [address] [place], [address], 4 08:44:41 Surgeries None recorded. Imaging MR, cholangiop ancreatogr am, w/o contrast 20[email or web address] [place] [address] (Central Scheduling), [address] [place] [address] [place], [address], 4 13:30:17 MRI, abdomen, w/wo contrast [address] [place] [address] (Central Scheduling), [address] [place] [address] [place], [address], 09:05:32 Medication Orders None recorded. Patient TargetsNo targets recorded. Patient InstructionsNo instructions recorded. Reason for Referral None Reported. Results Created Date Observation Date Name Description Value Unit Range Abnormal Flag Note LastModifiedBy Organization Detail LastModifiedTime 04/01/20 24 04/01/2024 CBC W/ AUTO DIFF WBC 11.25 K/uL 4.5-11 .5 Not Available [facility] (Pre-Op Clinic) [address] [place] [address] [place], [address], 04/01/2024 10:53:31 04/01/20 24 04/01/2024 CBC W/ AUTO DIFF RBC 6.03 M/uL 4.0-5. 4 high Not Available [facility] (Pre-Op Clinic) [address] [place] [address] [place], [address], 04/01/2024 10:53:31 04/01/20 24 04/01/2024 CBC W/ AUTO DIFF HGB 15.1 g/dL 14.0-1 8.0 Not Available [facility] (Pre-Op Clinic) [address] [place] [address] [place], [address], 04/01/2024 10:53:31 04/01/20 24 04/01/2024 CBC W/ AUTO DIFF HCT 47.0 % 40-54 Not Available [facility] (Pre-Op Clinic) [address] [place] [address] [place], [address], 04/01/2024 10:53:31 04/01/20 24 04/01/2024 CBC W/ AUTO DIFF MCV 77.9 fL 80.0-1 00.0 low Not Available [facility] (Pre-Op Clinic) [address] [place] [address] [place], [address], 04/01/2024 10:53:31 04/01/20 24 04/01/2024 CBC W/ AUTO DIFF MCH 25.0 pg 26.0-3 2.0 low Not Available [facility] (Pre-Op Clinic) [address] [place] [address] [place], [address], 04/01/2024 10:53:31 04/01/20 24 04/01/2024 CBC W/ AUTO DIFF MCHC 32.1 g/dL 32.0-3 6.0 Not Available [facility] (Pre-Op Clinic) [address] [place] [address] [place], [address], 04/01/2024 10:53:31 04/01/20 24 04/01/2024 CBC W/ AUTO DIFF RDW 14.6 % 11.5-1 4.5 high Not Available [facility] (Pre-Op Clinic) [address] [place] [address] [place], [address], 04/01/2024 10:53:31 04/01/20 24 04/01/2024 CBC W/ AUTO DIFF platelet count 373 K/uL 142-42 4 Not Available [facility] (Pre-Op Clinic) [address] [place] [address] [place], [address], 04/01/2024 10:53:31 04/01/20 24 04/01/2024 CBC W/ AUTO DIFF MPV 9.9 fL 6.8-10 .2 Not Available [facility] (Pre-Op Clinic) [address] [place] [address] [place], [address], 04/01/2024 10:53:31 04/01/20 24 04/01/2024 CBC W/ AUTO DIFF neutrophil % 75.6 % 50-70 high Not Available [facility] (Pre-Op Clinic) [address] [place] [address] [place], [address], 04/01/2024 10:53:31 04/01/20 24 04/01/2024 CBC W/ AUTO DIFF lymphocyte % 13.2 % 18.0-4 2.0 low Not Available [facility] (Pre-Op Clinic) [address] [place] [address] [place], [address], 04/01/2024 10:53:31 04/01/20 24 04/01/2024 CBC W/ AUTO DIFF monocyte % 8.0 % 2.0-11 .0 Not Available [facility] (Pre-Op Clinic) [address] [place] [address] [place], [address], 04/01/2024 10:53:31 04/01/20 24 04/01/2024 CBC W/ AUTO DIFF eosinophil % 1.6 % 1.0-3. 0 Not Available [facility] (Pre-Op Clinic) [address] [facility] [place], [address], 04/01/2024 10:53:31 04/01/20 24 04/01/2024 CBC W/ AUTO DIFF basophil % 1.1 % 0.0-2. 0 Not Available [facility] (Pre-Op Clinic) [address] [place] [address] [place], [address], 04/01/2024 10:53:31 04/01/20 24 04/01/2024 CBC W/ AUTO DIFF immature granulocytes % 0.5 % 0.0-0. 8 Not Available [facility] (Pre-Op Clinic) [address] [place] [address] [place], [address], 04/01/2024 10:53:31 04/01/20 24 04/01/2024 CBC W/ AUTO DIFF nucleated red blood cells % 0.0 % Not Available [facility] (Pre-Op Clinic) [address] [place] [address] [place], [address], 04/01/2024 10:53:31 04/01/20 24 04/01/2024 CBC W/ AUTO DIFF neutrophil # 8.50 K/uL Not Available [facility] (Pre-Op Clinic) [address] [place] [address] [place], [address], 04/01/2024 10:53:31 04/01/20 24 04/01/2024 CBC W/ AUTO DIFF lymphocyte # 1.49 K/uL Not Available [facility] (Pre-Op Clinic) [address] [place] [address] [place], [address], 04/01/2024 10:53:31 04/01/20 24 04/01/2024 CBC W/ AUTO DIFF monocyte # 0.90 K/uL Not Available [facility] (Pre-Op Clinic) [address] [place] [address] [place], [address], 04/01/2024 10:53:31 04/01/20 24 04/01/2024 CBC W/ AUTO DIFF eosinophil # 0.18 K/uL Not Available [facility] (Pre-Op Clinic) [address] [place] [address] [place], [address], 04/01/2024 10:53:31 04/01/20 24 04/01/2024 CBC W/ AUTO DIFF basophil # 0.12 K/uL Not Available [facility] (Pre-Op Clinic) [address] [place] [address] [place], [address], 04/01/2024 10:53:31 04/01/20 24 04/01/2024 CBC W/ AUTO DIFF immature gramulocytes # 0.06 K/uL Not Available [facility] (Pre-Op Clinic) [address] [place] [address] [place], [address], 04/01/2024 10:53:31 04/01/20 24 04/01/2024 CBC W/ AUTO DIFF nucleated red blood cells # 0.00 k/uL Not Available [facility] (Pre-Op Clinic) [address] [place] [address] [place], [address], 04/01/2024 10:53:31 04/01/20 24 04/01/2024 CBC W/ AUTO DIFF manual differential NO Not Available [facility] (Pre-Op Clinic) [address] [place] [address] [place], [address], 04/01/2024 10:53:31 04/01/20 24 04/01/2024 CBC W/ AUTO DIFF note Unles s other saini noted testi ng perfo rmed at: [facility] [address] [place] [address] Osmany reagan MD Not Available [facility] (Pre-Op Clinic) [address] [place], [address], 04/01/2024 10:53:31 04/01/20 24 04/01/2024 COMP METAB OLIC PANEL sodium 141 mmol/ L 137-14 7 Not Available [facility] (Pre-Op Clinic) [address] [place], [address], 04/01/2024 11:47:19 04/01/20 24 04/01/2024 COMP METAB OLIC PANEL potassium 4.5 mmol/ L 3.5-5. 1 Not Available [facility] (Pre-Op Clinic) [address] [place], [address], 04/01/2024 11:47:19 04/01/20 24 04/01/2024 COMP METAB OLIC PANEL chloride 103 mmol/ L 98-110 Not Available [facility] (Pre-Op Clinic) [address] [facility] [place], [address], 04/01/2024 11:47:19 04/01/20 24 04/01/2024 COMP METAB OLIC PANEL carbon dioxide 28 mmol/ L 21-30 Not Available [facility] (Pre-Op Clinic) [address] [place] [address] [place], [address], 04/01/2024 11:47:19 04/01/20 24 04/01/2024 COMP METAB OLIC PANEL anion gap 10 mmol/ L 6-14 Not Available [facility] (Pre-Op Clinic) [address] [place] [address] [place], [address], 04/01/2024 11:47:19 04/01/20 24 04/01/2024 COMP METAB OLIC PANEL glucose 292 mg/dL 70-115 high Not Available [facility] (Pre-Op Clinic) [address] [place] [address] [place], [address], 04/01/2024 11:47:19 04/01/20 24 04/01/2024 COMP METAB OLIC PANEL BUN 22 mg/dL 9-20 high Not Available [facility] (Pre-Op Clinic) [address] [place] [address] [place], [address], 04/01/2024 11:47:19 04/01/20 24 04/01/2024 COMP METAB OLIC PANEL creatinine 0.7 mg/dL 0.5-1. 5 Not Available [facility] (Pre-Op Clinic) [address] [place] [address] [place], [address], 04/01/2024 11:47:19 04/01/20 24 04/01/2024 COMP METAB OLIC PANEL BUN/creatini ne ratio 31 ratio 10-20 high Not Available [facility] (Pre-Op Clinic) [address] [place] [address] [place], [address], 04/01/2024 11:47:19 04/01/20 24 04/01/2024 COMP METAB OLIC PANEL glom filtration rate TNP mL/mi n >60- GFR has only been valid ated for patie nts 18-70 years of age. Not Available [facility] (Pre-Op Clinic) [address] [place] [address] [place], [address], 04/01/2024 11:47:19 04/01/20 24 04/01/2024 COMP METAB OLIC PANEL osmolality (calculated) 307 mosmo l/kg 275-30 1 high OSMOL ALITY IS A CALCU LATIO N UTILI ZING THE SERUM /PLAS MA SODIU M, GLUCO SE AND UREA NITRO GEN (BUN) LEVEL S. FOR THE MOST ACCUR ATE RESUL T A MEASU RED SERUM OSMOL ALITY IS SUGGE STED. Not Available [facility] (Pre-Op Clinic) [address] [place] [address] [place], [address], 04/01/2024 11:47:19 04/01/20 24 04/01/2024 COMP METAB OLIC PANEL total protein 8.1 g/dL 6.2-8. 2 Not Available [facility] (Pre-Op Clinic) [address] [place] [address] [place], [address], 04/01/2024 11:47:19 04/01/20 24 04/01/2024 COMP METAB OLIC PANEL albumin 4.3 g/dL 3.5-5. 0 Not Available [facility] (Pre-Op Clinic) [address] [place] [address] [place], [address], 04/01/2024 11:47:19 04/01/20 24 04/01/2024 COMP METAB OLIC PANEL calcium 9.5 mg/dL 8.5-10 .8 Not Available [facility] (Pre-Op Clinic) [address] [place] [address] [place], [address], 04/01/2024 11:47:19 04/01/20 24 04/01/2024 COMP METAB OLIC PANEL bilirubin total 15.5 mg/dL 0.2-1. 3 critical high Not Available [facility] (Pre-Op Clinic) [address] [place] [address] [place], [address], 04/01/2024 11:47:19 04/01/20 24 04/01/2024 COMP METAB OLIC PANEL AST (SGOT) 186 IU/L 17-59 high Not Available [facility] (Pre-Op Clinic) [address] [place] [address] [place], [address], 04/01/2024 11:47:19 04/01/20 24 04/01/2024 COMP METAB OLIC PANEL ALT (SGPT) 289 IU/L 0-50 high Pleas e note new refer ence inter mayela for ALT. Due to a recen t manuf actur er metho dolog y wayne e, the refer ence inter mayela for ALT is lower effec tive March 22, 2021. Not Available [facility] (Pre-Op Clinic) [address] [place] [address] [place], [address], 04/01/2024 11:47:19 04/01/20 24 04/01/2024 COMP METAB OLIC PANEL alk phosphatase 418 IU/L 38-126 high Not Available [facility] (Pre-Op Clinic) [address] [place] [address] [place], [address], 04/01/2024 11:47:19 04/01/20 24 04/01/2024 COMP METAB OLIC PANEL note Unles s other saini noted testi ng perfo rmed at: [facility] [address] [place] [address] Osmany reagan MD Not Available [facility] (Pre-Op Clinic) [address] [place] [address] [place], [address], 04/01/2024 11:47:19 04/01/20 24 04/01/2024 MRI MRCP with and witho ut [facility] [address] [place] [address] (Phone ) LAURIE Samuels REPORT Name: WINSTON DELGADO : 1949 Accoun t #: [id number] Age: 73 Years Patien t Type: Outpat ient Sex: M Access ion#: [id number] Exam Descri ption: MRI MRCP WITH AND WITHOU T Exam Reason : r17 unspec ified jaundi ce Order Date/T nabeel: 2023 10:53: 00 AM Dictat ed By: Savi robles MD Orderi ng Physic nakul: RON ROSA Attend ing Physic nakul: RON ROSA MRCP withou t and with IV contra st INDICA TION: Jaundi ce COMPAR FRANK: None TECHNI QUE: Pre and postco ntrast multip lanar images perfor med throug h the abdome n. 3-D thin and thick sectio n MRCP images perfor med with 3-D maps multip le postco ntrast axial T1 weight ed fat suppre ssed images perfor med after intrav enous admini strati on of gadoli nium. FINDIN GS: Study slight ly limite d due to patien t motion . Lobula heladio mass is presen t in the head and neck of pancre as measur ing approx imatel y 3.9 x 3.3 cm on series 5 image 21. There is abuts the SMA and SMV on series 5 image 20. The mass close to the duoden al C-loop on series 5 image 23. Portal vein is patent . Findin gs consis tent with pancre atic adenos is carcin ju unless proven otherw ise. Substa ntial intrah epatic and extrah epatic bile duct dilata tion with PAGE 1 OF 2 Name: WINSTON DELGADO : 1949 Accoun t #: [id number] Age: 73 Years Patien t Type: Outpat ient Sex: M Access ion#: [id number] Exam Descri ption: MRI MRCP WITH AND WITHOU T Exam Reason : r17 unspec ified jaundi ce Order Date/T nabeel: 2023 10:53: 00 AM abrupt obstru ction at level of mass. Pancre atic duct is mild to modera tely diffus guillermo dilate d due to the mass. No defini te liver lesion s seen. The spleen , adrena l glands and kidney s unrema rkable . Gallbl adder is partia lly contra cted with at least one stone. Right kidney contai ns a 3.5 cm hot dog vender ior lower pole cyst. Kidney s otherw ise unrema rkable . No aortic aneury sm or retrop eriton eal adenop athy. No bowel obstru ction. Bones unrema rkable . IMPRES PIPER: Lobula heladio mass head and neck of pancre as with biliar y obstru ction. Findin gs consis tent with pancre atic adenoc arcino ma and left proven otherw ise. Gallbl adder partia lly contra cted with at least one stone. Electr onical ly signed by: Savi robles MD 2023 01:24 PM EDT Workst ation: [id number] Princi pal Interp reter Name: Savi robles Provid er ID: [id number] PAGE 2 OF 2 CC'ed Logic: Orderi ng Provid er: [facility] [place] CC Provid er: OMEGA Cameron Attend ing Provid er: [facility] [place] Referr ing Provid er: [facility] [place] Admitt ing Provid er: [facility] [email or web address] Not Available 2023 15:26:48 Result Notes None recorded. Problems Name Problem SNOMED Code Status Onset Date Resolution Date Notes Provider Name and Address Organization Details Recorded Time Total bilirubin above reference range 6286605707457 08 Active 2023 Devi Rosa NP [address], [address], [place], [address], [place] - [facility] & [place] 09:41:31 Unintention al weight loss 895081877 Active 2023 Devi Rosa NP [address], [address], [place], [place], [address], [place] - [facility] - [place] & [place] 09:41:45 Right upper quadrant pain 289958459 Active 2023 Devi Rosa NP [address], [address], [place], [place], [address], [place] - [facility] & [place] 09:41:53 Problem Notes None recorded. Medical Equipment None Reported. Allergies No known drug allergies Medications Name Sig Start Date Stop Date Status Note LastModified by Organization Details LastModified Time atorvastati n 40 mg tablet TAKE 1 TABLET BY MOUTH ONCE DAILY active Not Available Not Available No t Available sucralfate 100 mg/mL oral suspension TAKE 10 ML BY MOUTH THREE TIMES DAILY 04/01 completed Not Available Not Available Not Available Baby Aspirin 81 mg chewable tablet Chew 1 tablet every day by oral route. active Not Available Not Available No t Available Lantus Solostar U-100 Insulin 100 unit/mL (3 mL) subcutaneou s pen INJECT 20 UNITS SUBCUTANE OUSLY ONCE DAILY AT BEDTIME active Not Available Not Available No t Available Vitals Date Recorded Body height Body mass index (BMI) Body weight Body temperature Oxygen saturation Oxygen saturation in Arterial blood by Pulse oximetry Heart rate Provider Name and Address Organization Details Last Updated DateTime 4 172.72 cm 25.8 kg/m2 88683.7 g 97.2 [degF] 97 % 97 % 92 /min Nika Gallegos [facility] & [place] 4 09:11:38 Social History None recorded. Functional Status None recorded. Mental Status None recorded. Family History Nothing Reported. Medical History No medical history recorded. Past Encounters Encounter ID Performer Location Encounter Start Date Encounter Closed Date Diagnosis/Indication Diagnosis SNOMED-CT Code Diagnosis ICD10 Code Diagnosis Note [id number] Devi Rosa NP [address] [place] [address] 04/01/2024 08:32:33 04/01/2024 13:24:23 Total bilirubin above reference range 7997265758 75119 R17 Significan t jaundice and scleral icterus noted on physical exam. labs reviewed 03/16/2024 total bilirubin 2, AST 48, ALT 67, alk-phos 153 WBC 13.8, HGB 15.1, HCT 48.8. Ultrasound reviewed 03/23/2024 noted cholelithi asis without evidence of acute cholecysti tis. Follow-up HIDA scan 03/29/2024 reviewed noting lack of activity within the biliary tree and gallbladde r could be seen with severe liver disease or high-grade biliary obstructio n. Recommend stat MRCP as well as MRI abdomen with and without to rule out choledocho lithiasis, mass, lesion. Plan for labs today. Unintentio nal weight loss 861550066 R63.4 15 lb weight loss in the past 2 weeks. Plan for labs and imaging as above to further evaluate. Recommend EGD to further evaluate. Right uppe r quadrant pain 427934616 R10.11 Two to three-week history right upper quadrant pain, significan tly worse after eating. Plan for labs and imaging as well as EGD above. Health Concerns Section Related Observation LastModified by Organization Detai ls LastModified Time None Recorded Concern Status LastModified by Organization Details LastModified Time None Recorded Advance Directives Directive None Recorded Payers Insurance Date Sequence Insurance Name Policy Number Policy [employer] Covered Member ID [employer] Member ID Guarantor Name 03/31/2024 1 [employer] (MEDICARE REPLACEMENT/A DVANTAGE - PPO) Winston Toan [id number] Winston Joya Notes Date Note Type Note Provider Name and Address Organization Details Recorded Time 04/01/2024 text/html 73-year-old male with a past medical history diabetes, hyperlipidemia presents today for evaluation right upper quadrant abdominal pain, elevated bilirubin, and unintentional weight loss. Describes symptoms that began 2-3 weeks ago with postprandial abdominal pain which he describes as severe at times. No specific food triggers identified. He also reports pain frequently after he wakes in the morning. Some mild dyspepsia denies nausea or vomiting. Decreased appetite with early satiety. Estimated 15 lb weight loss in the past 2 weeks. He tells me that his daughter has mentioned worsening jaundice. Labs reviewed 03/16/2024 total bilirubin 2.0, AST 48, ALT 67, alk-phos 153 WBC 13.8, HGB 15.1, HCT 48.8. Ultrasound reviewed 03/23/2024 noted cholelithiasis without evidence of acute cholecystitis. Follow-up HIDA scan 03/29/2024 reviewed noting lack of activity within the biliary tree and gallbladder could be seen with severe liver disease or high-grade biliary obstruction. No family history of gastric or pancreatic cancer. Devi Rosa NP [address] [place] [address], [address], [place], [address], [place] - [facility] - [place] & [place] 04/01/2024 12:32:04
--- OUTSIDE RECORDS SUMMARY | 2025-06-09 06:51 | XMS_ITS ---
Author Organization [facility] Address [address] [place] [address] Care Team Providers Care Life Management Teacher Name Role Phone Ritchie Lopez MD Primary Care Provider [phone] Laura Maher MD Unavailable [phone] Isaac Webb MD Unavailable Active Problems Problem Noted Date Diagnosed Date [...] quadrant pain 04/01/2024 Unintentional weight loss 04/01/2024 Current Treatment and Therapy Plans Gemcitabine Every 14 Days / Nab-Paclitaxel Every 14 Days Every 28 Days* Plan Start Date:03/27/2025 Plan Provider:Carly Gaxiola MD Linked Problems Pancreatic adenocarcinoma (C MS/HCC) Treatment Medications Current Day (Day 1 5, Cycle 3 - Planned for 06/07/2025) Next Day (Day 1, Cycle 4 - Planned for 06/21/2025) ALBUMIN-BOUND PACLitaxel (Abraxane) IVPBgemcitabine (Gemzar)gemcitabine (Gemzar) IVPBPACLitaxel Protein Bound (Abraxane) albumin-bound PACLitaxel (Abraxane) 200 mg IVPBgemcitabine (Gemzar) 1,900 mg in sodium chloride 0.9 % 100 mL IVPB albumin-bound PACLitaxel (Abraxane) 200 mg IVPBgemcitabine (Gemzar) 1,900 mg in sodium chloride 0.9 % 100 mL IVPB Past Treatment and Therapy Plans Infusion Treatment 1 Plan Name Start Date Discontinue Date Treatment Medications Discontinue Reason Plan Provider (HEM/ONC) Scheduled IV Fluids with and without Electrolytes 05/26/2024 06/30/2024 No medications scheduled. Therapy Complete Laura Maher MD Oncology Treatment Plan Name Start Date Discontinue Date Treatment Medications Discontinue Reason Plan Provider Cycles Capecitabine + XRT 024 02/28/2025 capecitabine (Xeloda) Therapy Complete Laura Maher MD Treatment not started Gemcitabine Weekly x 3 / Nab-Paclitaxel Weekly x 3 Every 28 Days 04/21/20 24 11/09/2024 ALBUMIN-BOUND PACLitaxel (Abraxane) IVPBgemcitabine (Gemzar)gemcitabi ne (Gemzar) IVPBPACLitaxel Protein Bound (Abraxane) Therapy Complete Laura Maher MD 6 of 6 cycles started Gemcitabine Weekly x 3 / Nab-Paclitaxel Weekly x 3 Every 28 Days 04/21/20 24 10/12/2024 ALBUMIN-BOUND PACLitaxel (Abraxane) IVPBgemcitabine (Gemzar)gemcitabi ne (Gemzar) IVPBPACLitaxel Protein Bound (Abraxane) Therapy Complete Laura Maher MD 6 of 6 cycles started Past Radiation Episodes * VMAT: Bilateral PancreasOverview* First Treatment Date Last Treatment Date Treatment Site Technique Goal Episode Provider 11/19/2024 01/03/2025 Bilateral Pancreas VMAT Maintenance * Linked Problems Cancer of pancreas Treatment Courses* Course C1 11/25/2024 - 01/03/2025 Treatment Period Fraction Dose Fractions Total Dose Plans Planned Pancreas 11/25/2024 - 01/03/2025 220 cGy 25 / 25 5 ,500 cGy Reference Points Delivered Pancreas 11/25/2024 - 01/03/2025 5,500 cGy * Course IMRT QA 11/19/2024 - 11/19/2024 Treatment Period Fraction Dose Fractions Total Dose Plans Planned Pancreas 11/19/2024 - 11/19/2024 220 cGy 0 / 1 2 20 cGy Reference Points Delivered Verification 11/19/2024 - 11/19/2024 0 cGy Lifetime Dose Tracking * Chemical Lifetime Dose Automatic Entry Manual Entr y Fluoro Time 3.25 minutes 3.25 minutes 0 minutes Air Kerma 17.1 mGy 17.1 mGy 0 mGy
--- OUTSIDE RECORDS SUMMARY | 2025-06-09 06:51 | XMS_ITS | Encounter Summary ---
Author Organization [facility] Address [address] [place] [address] Care Team Providers Care Law Tutor Name Role Phone Ritchie Lopez MD Primary Care Provider [phone] Laura Maher MD Unavailable [phone] Isaac Webb MD Unavailable Encounter Details Date Type Department Care Team (Latest Contact Info) Description 04/26/2025 Travel Social History Tobacco Use Types Packs/Day [...] place to sleep or slept in a fdc (including now)? No 04/02/2024 PHQ-9 Answer Date [...] drink first t cristy in the morning (EYE-STROKE PROGRAM COORDINATOR) to steady your nerves or to get rid of a hangover? 0 04/02/2024 CAGE Questionnaire Score 0 024 Utilities Answer Date Recorded In the past 12 months has th e [employer], gas, oil, or water company threatened to [...] Description 06/21/2025 2:00 PM EDT Office Visit [facility] Multidisciplinary Oncology Clinic [address] [place] [id number] Leatha Higgins, TOP STEEP TENDER 800 [facility] [address] [place] [address] 06/21/2025 3:30 PM EDT Appointment [facility] Infusion Clinic [address] [place] [address] 09/13/2025 2:40 PM EDT Office Visit [facility] [address] [place] [address] Douglas Schroeder PA [address] [place] [address] documented as of this encounter Visit Diagnoses [...] documented as of this encounter Care Teams Law Tutor Relationship Specialty Start Date End Date Ritchie Lopez MD [address] [place] [address] PCP - General 03/30/24 Laura Maher MD [address] [facility] [address] [place] [address] Consulting Physician Medical Oncology 07/07/24 Isaac Webb MD [address] [facility] [address] [place] [address] Service Attending Radiation Oncology 10/26/24 documented as of this encounter
--- OUTSIDE RECORDS SUMMARY | 2025-06-09 06:51 | XMS_ITS | Encounter Summary ---
Author Organization [facility] Address [address] [place] [place] [address] Care Team Providers Care Tax Intern Name Role Phone Ritchie Lopez MD Primary Care Provider [phone] Laura Maher MD Unavailable [phone] Isaac Webb MD Unavailable Encounter Details Date Type Department Care Team (Latest Contact Info) Description 04/21/2025 Travel Social History Tobacco Use Types Packs/Day [...] drink first t cristy in the morning (EYE-FUR DRY CLEANER) to steady your nerves or to get rid of a hangover? 0 04/02/2024 CAGE Questionnaire Score 0 024 Utilities Answer Date Recorded In the past 12 months has th e [employer], gas, oil, or water company threatened to [...] Visit [facility] [address] [place] [address] Leatha Higgins, NEW ACCOUNTS CLERK [address] [facility] [address] [place] [address] 06/21/2025 3:30 PM EDT Appointment [facility] [address] [place] [address] 09/13/2025 2:40 PM EDT Office Visit [facility] [address] [place] [address] Douglas Schroeder, PA [address] [place] [address] documented as of this encounter Visit Diagnoses [...] documented as of this encounter Care Teams Tax Intern Relationship Specialty Start Date End Date Ritchie Lopez MD [facility] [place] [address] PCP - General 03/30/24 Laura Maher MD [address] [place] [address] Consulting Physician Medical Oncology 07/07/24 Isaac Webb MD 800 [facility] [address] [place] [address] Service Attending Radiation Oncology 10/26/24 documented as of this encounter
--- OUTSIDE RECORDS SUMMARY | 2025-06-09 06:51 | XMS_ITS | Encounter Summary ---
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 0 04/02/2024 CAGE Questionnaire Score 0 024 Utilities Answer Date Recorded In the past 12 months has th e [employer], gas, oil, or water company threatened to [...] Marysol Hirsch documented as of this encounter Plan of Treatment Upcoming Encounters Date Type Department Care Team (Late st Contact Info) Description 06/21/2025 2:00 PM EDT Office Visit [facility] Multidisciplinary Oncology Clinic [address] [place] [address] Leatha Higgins, WILNER 800 [facility] April Munozrickson [facility] [address] [place] [address] 06/21/2025 3:30 PM EDT Appointment [facility] Infusion Clinic [address] [place] [address] 09/13/2025 2:40 PM EDT Office Visit [facility] Medicine Specialties [address] [place] [address] Douglas Schroeder PA [address] [place] [address] documented as of this encounter Visit Diagnoses [...] documented as of this encounter Care Teams Med Care Manager Relationship Specialty Start Date End Date Ritchie Lopez MD [address] [place] [address] PCP - General 03/30/24 Laura Maher MD [address] [facility] [address] [place] [address] Consulting Physician Medical Oncology 07/07/24 Isaac Webb MD [address] [facility] [address] [place] [address] Service Attending Radiation Oncology 10/26/24 documented as of this encounter
--- OUTSIDE RECORDS SUMMARY | 2025-06-09 06:51 | XMS_ITS | Encounter Summary ---
Author Organization [facility] Address [address] [place] [address] Care Team Providers Care Flanging Machine Operator Name Role Phone Ritchie Lopez MD Primary Care Provider [phone] Laura Maher MD Unavailable [phone] Isaac Webb MD Unavailable Encounter Details Date Type Department Care Team (Latest Contact Info) Description 05/23/2025 Travel Social History Tobacco Use Types Packs/Day [...] place to sleep or slept in a long-term (including now)? 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 0 04/02/2024 CAGE Questionnaire Score 0 024 Utilities Answer Date Recorded In the past 12 months has th e [employer], gas, oil, or water company threatened to [...] Visit [facility] [address] [place] [address] Leatha Higgins, TURRET LATHE OPERATOR [address] [facility] [address] [place] [address] 06/21/2025 3:30 PM EDT Appointment [facility] [address] [place] [address] 09/13/2025 2:40 PM EDT Office Visit [facility] [address] [place] [address] Douglas Schroeder, PA [address] [place] [address] documented as of this encounter Visit Diagnoses [...] documented as of this encounter Care Teams Flanging Machine Operator Relationship Specialty Start Date End Date Ritchie Lopez MD [facility] [place] [address] PCP - General 03/30/24 Laura Maher MD [address] [place] [address] Consulting Physician Medical Oncology 07/07/24 Isaac Webb MD 800 [facility] [address] [place] [address] Service Attending Radiation Oncology 10/26/24 documented as of this encounter
--- OUTSIDE RECORDS SUMMARY | 2025-06-09 06:51 | XMS_ITS | Encounter Summary ---
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 Stated that provider was not concerned about inc BP, advised to f/u with PCP for management. Stated he checks it daily at home and is usually 140s-150s systolically. Rechecked BP while on phone. documented in this encounter Plan of Treatment Upcoming Encounters Date Type Department Care Team (Late st Contact Info) Description 06/21/2025 2:00 PM EDT Office Visit [facility] [address] [place] [address] Leatha Higgins, CENTERLESS GRINDER SET UP OPERATOR 800 [facility] April Staton [facility] [address] [place] [address] 06/21/2025 3:30 PM EDT Appointment [facility] [address] [place] [address] 09/13/2025 2:40 PM EDT Office Visit [facility] Medicine Specialties [address] [place] [address] Douglas Schroeder, ROZINA [address] [place] [address] documented as of this encounter Visit Diagnoses [...] documented as of this encounter Care Teams Web Ui Designer Relationship Specialty Start Date End Date Ritchie Lopez MD [address] [place] [address] PCP - General 03/30/24 Laura Maher MD [address] [place] [address] Consulting Physician Medical Oncology 07/07/24 Isaac Webb MD [address] [facility] [address] [place] [address] Service Attending Radiation Oncology 10/26/24 documented as of this encounter
--- NOTE | 2025-06-09 06:59 | NM_ITS ---
APPROVED REPORT Exam: Nuclear Stress Test Indication: pre-op..cp Patient Location: Outpatient Stress Tech: Kristal Kennedy [place] Tech:Socorro Varner CHRISTINEAlex RT(R)(N) Ht: 5 ft 8 in Wt: 170 lbs HR: 58 bpm BP: 171/72 mmHg BSA: 1.91 m2 TID: 1.06 BMI: 25.8 History: pre-op..cp Procedure: Patient received 0.4 mg of intravenous Lexiscan, resting heart rate 58 bpm, resting blood pressure 171/72 mmHg, with Lexiscan maximum heart rate achieved was 88 bpm which is 85 % of the maximum predicted heart rate and blood pressure was 170/83 mmHg. With Lexiscan, patient denied any complaint of chest pain. Cardiac Stress and Resting SPECT Images: Cardiac Stress and Resting SPECT images were obtained using technetium 99m Myoview 30.9 mCi stress and 10.58 mCi at rest. Technically difficult study. There is significant soft tissue overlap with the cardiac borders. This may affect diagnostic interpretation of the study findings. Resting and stress imaging in supine positions demonstrate a large sized, moderate, fixed perfusion defect in the inferior LV wall. This is no longer visualized with prone stress imaging. Findings are suggestive of diaphragmatic attenuation. Gated imaging demonstrates normal global and regional LV systolic function. LVEF is calculated at 58%. Conclusion: Diaphragmatic attenuation is present. No evidence of focal fixed or reversible perfusion defects. Gated imaging demonstrates normal global and regional LV systolic function. LVEF is calculated at 58%. Electronically signed by : Khushi Blair MD 06/11/2025 01:14:37
[2025-06-09] MEDS: SODIUM CHLORIDE 0.9% 10ML SYR (RAD ONLY) 10 ML IV ×2 (09:19)
[2025-06-09] MEDS: ISOTOPE MYOVIEW (PER STUDY) 1 DOSE IV (09:19)
== END 2025-06-09 23:59 | disposition home or self-care (01) ==
LOC: RAD 06:48
PROVIDERS: PCP Family Medicine; Visit Provider Internal Medicine
DX: Z01.810 Encounter for preprocedural cardiovascular examination (principal); I49.3 Ventricular premature depolarization; R00.8 Other abnormalities of heart beat
CPT/HCPCS: 78452; 93016; 93017; 93018; A9502; J2785